=== PATIENT | male | born 1945 | race Caucasian/White ===

== ENCOUNTER 2019-10-09 15:33 | Inpatient (IN) | payer BC, SELFPAY ==
[2019-10-09] VITALS (16 sets, daily range): BP systolic 102–157; BP diastolic 55–80; PULSE 66–82; RESP 13–33; TEMP 36.4–37.1; O2SAT 94–98
--- NOTE | 2019-10-09 15:55 | ED.GENADUL_ITS ---
Discharge Plan Disposition Patient Disposition: [facility] INPATIENT Condition: Fair Discharge Details Chief Complaint: Orthopedic Clinical Impression: Hip fracture Admit Date/Time: 10/09/19 18:51 Admit Provider: Theo Rice Attending Provider: Martinez Tavares Primary Care Provider: Simone Flanagan ED Provider: Caridad Hinojosa Discharge Instructions Activity:: Activity as Tolerated Equipment/Supplies:: Walker Diet:: As Tolerated Discharge Orders Discharge Orders: Discharge Order (Routine); Ordered 10/12/19 Ordered By: Martinez Tavares Discharge Data Discharge Date/Time-TO BE ENTERED AT DEPARTURE: 10/09/19 19:30 Medical Decision Making Patient is a pleasant 74-year-old male with past medical history significant for hypertension, hiatal hernia, CHF, gait disturbance, GERD, hyperlipidemia, hypothyroidism, iron deficiency anemia, proctitis, rheumatoid arthritis. Per records from primary care, patient had an echo 2011 showing EF of 60% with mild diastolic dysfunction. He is presenting today after a fall onto his left hip. Since that time he has had severe pain and has not been able to ambulate without assistance. Patient is brought in via EMS noted to be in external rotation with shortening of the left lower extremity. He denies other injury time of the in cident. Did not strike his head, no loss of consciousness. Denies any pain in his neck, back, chest, abdomen. Sensation is intact. Distal pulses intact. Remaining exam left lower extremity is normal. No saddle paresthesias. Patient does appear to be having muscle spasms. On exam, patient appears uncomfortable. His LLE is shortened and rotated with discomfort laterally on palpation. 2+ distal pulses. No evidence of FINDINGS: Bones/joints: There is a fracture of the left femoral neck at the junction of the base and intratrochanteric ridge with a fracture line through the greater trochanter. There is mild to moderate varus rotation of the femoral head and superior migration of the proximal femur. Degenerative changes lower lumbar spine. Soft tissues: Unremarkable. IMPRESSION: There is a fracture of the left femoral neck at the junction of the base and intratrochanteric ridge with a fracture line through the greater trochanter. FINDINGS: Lungs: Moderate bilateral pulmonary interstitial lung disease. Moderate increased markings at the left lung base. Pleural space: Unremarkable. No pleural effusion. No pneumothorax. Heart/Mediastinum: Borderline cardiomegaly. Vasculature: Atherosclerotic changes of the aortic arch. Bones/joints: Lower cervical fixation incompletely visualized. IMPRESSION: Moderate pulmonary interstitial lung disease which has progressed in severity since a prior chest radiograph dated 11/13/2015. Superimposed left lower lobe infiltrate cannot be excluded. Please correlate with the patient's clinical findings and past medical history There is infiltrate noted in the left lower lobe does correlate clinically as I am hearing crackles in this area and the patient does report that he had a cough the past few weeks. He has not been acutely febrile. Plan to begin ceftriaxone and doxycycline. Consulted orthopedics regarding the patient's hip fracture, they advised they will fix him tomorrow and request admission through hospitalist. I have also r equested that SUBWAREHOUSE SUPERVISOR come to evaluate the patient and perform block if possible. Consult hospitalist agrees to admission. HPI General Mode of arrival: EMS . Date/Time Provider Initiated Documentation: 10/09/19 15:34 . Limitations to Documentation: no limitations . Information obtained by: patient and RN notes reviewed . History of Present Illness 74 year old M presents to the emergency department with the chief complaint of left hip pain, described as severe, Quality is described as stabbing (with spasms), and is localized to the left and lower extremity. Patient reports no radiation. Patient started experiencing this minute(s) and it has been constant. Immobilization improves symptom(s), Movement worsens symptoms . Patient notes no other symptoms.. Patient did receive the following treatments prior to arrival, none Related Data Home Medications Medication Instructions Recorded Confirmed ascorbic acid (vitamin C) 500 mg PO DAILY 01/02/13 10/09/19 hydroxychloroquine 200 mg PO BID 01/02/13 10/09/19 lisinopril 40 mg PO DAILY tab-cap 01/02/13 10/09/19 multivitamin [Daily Vitamin] 1 ea PO DAILY 01/02/13 10/09/19 nifedipine 30 mg PO DAILY #30 tab-cap 09/28/16 10/09/19 sildenafil (pulm.hypertension) 40 mg PO PRN #30 tab 11/10/16 10/09/19 diclofenac sodium [Voltaren] 100 gm TOPICAL DAILY script 07/02/17 10/09/19 omeprazole 40 mg PO DAILY #1 tab-cap 07/02/17 10/09/19 levothyroxine 112 mcg tablet 112 mcg PO DAILY #90 tab 03/16/19 10/09/19 baclofen 10 mg tablet 5 mg PO QID PRN #180 tab 04/04/19 10/09/19 methotrexate sodium 2.5 mg tablets 15 mg PO once a week dose pk 04/21/19 10/09/19 in a dose pack tocilizumab 162 mg/0.9 mL 162 mg SUBCUT QWEEK ml 04/21/19 10/09/19 subcutaneous syringe pramipexole 0.5 mg tablet 0.5 mg PO HS #90 tab-cap 10/09/19 10/09/19 acetaminophen [Mapap Extra 1,000 mg PO Q8H PRN #0 tab 10/12/19 Strength] aspirin 81 mg PO DAILY #29 tab 10/12/19 doxycycline hyclate 100 mg PO BID #4 cap 10/12/19 hydrocodone-acetaminophen 1 tab PO Q6H PRN PRN #20 tab 10/12/19 Previous Rx's Medication Instructions Recorded omeprazole 40 mg PO DAILY #1 tab-cap 07/02/17 levothyroxine 112 mcg tablet 112 mcg PO DAILY #90 tab 03/16/19 baclofen 10 mg tablet 5 mg PO QID PRN #180 tab 04/04/19 pramipexole 0.5 mg tablet 0.5 mg PO HS #90 tab-cap 10/09/19 acetaminophen [Mapap Extra 1,000 mg PO Q8H PRN #0 tab 10/12/19 Strength] aspirin 81 mg PO DAILY #29 tab 10/12/19 doxycycline hyclate 100 mg PO BID #4 cap 10/12/19 hydrocodone-acetaminophen 1 tab PO Q6H PRN PRN #20 tab 10/12/19 Allergies Allergy/AdvReac Type Severity Reaction Status Date / Time azathioprine Allergy Unknown unknown Verified 10/09/19 15:43 morphine AdvReac Other (See Unverified 10/09/19 19:17 Comment) General Stated Complaint: Orthopedic JAMI: 3 Review of Systems Constitutional Constitutional: Reports as per HPI, Denies chills, Denies fever(s), Denies headache(s) and Denies weakness ENT Ears, Nose, Mouth, and Throat: Denies headache(s) Cardiovascular Cardiovascular: Reports as per HPI Respiratory Respiratory: Reports as per HPI and Denies cough Musculoskeletal Musculoskeletal: Reports as per HPI and Denies tingling Integumentary/Breasts Skin/Breast: Reports as per HPI, Denies rash and Denies wounds Neurologic Neurologic: Reports as per HPI, Denies headache(s), Denies tingling, Denies paresthesias and Denies weakness [facility] Medical History Congestive heart failure (CHF) (Chronic) [facility]%, mild diastolic dysfunction, ? 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 [employer] Current gender identity: male What type of physical activity do you participate in: walking and additional Details: pt is very active, walks paths on property daily, 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 Seatbelt use: always Drive intox or ride w/intox 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 Do you feel safe at home: Yes Do you feel safe in your relationship?: Yes Exam Const General: cooperative, healthy appearing, uncomfortable, no acute distress, well developed and well groomed Nutritional Appearance: average body habitus and well nourished Orientation: alert and awake Resp Effort & Inspection: normal respiratory effort, able to speak in complete sentences and no respiratory distress Auscultation: clear to auscultation bilaterally Cardio Rate: regular rate Rhythm: regular rhythm Heart Sounds: S1 normal and S2 normal GI Inspection: normal to inspection Palpation: soft, no hepatosplenomegaly, not firm, no guarding and nontender Back/Spine/Pelvis Back: no CVA tenderness Cervical Spine: normal cervical lordosis and cervical ROM normal Thoracic/Lumbar Spine: thoracic and lumbar spine normal to inspection Pelvis: no pain with anterior-posterior compression and no pain with lateral compression Skin General skin exam: no rashes or lesions noted Lesions: no lesions Rashes: no rashes Trauma: no lacerations or abrasions Neuro General: alert and awake Cognition: normal cognition Speech: speech normal Motor: muscle tone normal throughout Sensory Exam: no sensory deficits noted (no saddle paresthesias) Extrem Left lower extremity: normal capillary refill, no joint enlargement, hip/thigh Details: tenderness Location: of the hip Location: laterally; no swelling and ROM abnormal, knee (unable to range secondry to hip pain, no swelling or pain) Details: normal to inspection, lower leg Details: normal to inspection and no edema; no localized swelling and no palpable cords and foot (2+ distal pulses, sensation intact); abnormal to inspection (shortened and externally rotated) and abnormal ROM Psych Appearance: grossly normal and well kempt Mental Status: mental status grossly normal Speech and Movement: speech and movement normal Course Vital Signs Vital signs: Vital Signs Temperature 37 C 10/09/19 15:40 Pulse 80 10/09/19 15:40 Respiratory Rate 22 10/09/19 15:40 Blood Pressure 142/79 H 10/09/19 15:40 Pulse Oximetry 94 L 10/09/19 15:40 Temperature 37 C 10/09/19 15:40 Temperature Source Skin 10/09/19 15:40 Pulse 80 10/09/19 15:40 Respiratory Rate 22 10/09/19 15:40 Blood Pressure 142/79 H 10/09/19 15:40 Blood Pressure Position Sitting 10/09/19 15:40 Pulse Oximetry 94 L 10/09/19 15:40 Oxygen Delivery Method Room Air 10/09/19 15:40 Oxygen Flow Rate 0 10/09/19 15:40 Pain Level 9 10/09/19 15:40
[2019-10-09] MEDS: diazePAM 10 MG/2 ML SYR 5 MG IVP (16:15)
[2019-10-09] MEDS: ACETAMINOPHEN 1,000 MG/100 ML BTL 400 MG IVPB (16:36)
[2019-10-09 16:37] LABS: Abs Immature Grans 0.01 k/cumm (0.0-0.09); Absolute Basophil Count 0.01 k/cumm (0.0-0.2); Absolute Lymphocyte Count 0.69 k/cumm (1.2-3.4); Absolute Monocyte Count 0.53 k/cumm (0.11-0.7); Absolute Neutrophil Count 3.96 k/cumm (1.2-6.7); Basophils % 0.2; Eosinophils % 5.5; HCT 39.2 % (40.0-50.0); HGB 13.4 g/dL (13.5-17.5); Immature Grans % 0.2 %; Lymphocytes % 12.5; Mean Corp. HGB Concentration 34.2 g/dL (32.0-36.0); Mean Corpuscular Hemoglobin 31.7 pg (27.0-33.0); Mean Corpuscular Volume 92.7 fL (80-95); Monocytes % 9.6; Platelet Count 183 x1000/uL (130-400); RBC 4.23 m/cumm (4.50-6.00); RBC Distribution Width 14.5 % (11.8-14.1)
[2019-10-09 16:48] LABS: ALT 29 U/L (16-63); AST 59 U/L (15-37); Albumin 3.5 g/dL (3.4-5.0); Alkaline Phosphatase 87 U/L (46-116); Anion Gap 7.1 mmol/L (3-11); BUN 17 mg/dL (7-18); Bilirubin, Total 0.5 mg/dL (0.2-1.0); CO2 27.9 mmol/L (21.0-32.0); CREATININE 0.96 mg/dL (0.70-1.30); Calcium 8.2 mg/dL (8.5-10.1); Chloride 107 mmol/L (98-107); Glucose 96 mg/dL (74-106); Potassium 3.9 mmol/L (3.5-5.1); Sodium 142 mmol/L (136-145); Total Protein 7.2 g/dL (6.4-8.2)
--- NOTE | 2019-10-09 16:54 | DI.RAD_ITS ---
EXAM: XR HIP LT COMPLETE AP PELVIS INDICATION: fall, deformity noted. COMPARISON: No exams were available for comparison TECHNIQUE: 2D digital imaging was performed. FINDINGS: There is an intertrochanteric fracture the left femur. There is varus angulation and mild comminutio n at the greater trochanter. No additional fractures are seen. The exam is somewhat limited by overl jerome material. IMPRESSION: Intertrochanteric fracture of left femur with varus angulation.
--- NOTE | 2019-10-09 16:56 | DI.RAD_ITS ---
EXAM: XR CHEST 1V IN DI DEPT INDICATION: possible hip fx, cough. COMPARISON: CHEST 2 VIEWS PA,LAT from 11/13/2015 TECHNIQUE: 2D digital imaging was performed. FINDINGS: The heart size is within normal limits for projection. Again noted are underlying emphysematous and fibrotic changes. Increased densities at the left lung base when compared with the previous exam whi ch could indicate a superimposed infiltrate. IMPRESSION: Severe underlying fibrotic changes. Question of superimposed left lower lobe infiltrate.
[2019-10-09] MEDS: fentaNYL 100 MCG/2 ML VIAL 50 MCG IVP (17:00)
--- NOTE | 2019-10-09 17:17 | DI.VRAD_ITS ---
PROCEDURE INFORMATION: Exam: XR Left Hip with Pelvis when Performed Exam date and time: 10/09/2019 4:14 PM Age: 74 years old Clinical indication: Pain and injury or trauma; Initial encounter; Hip pain; Left hip; Patient HX: Fall, deformity noted TECHNIQUE: Imaging protocol: XR Left hip with pelvis when performed. Views: 2 or 3 views. COMPARISON: No relevant prior studies available. FINDINGS: Bones/joints: There is a fracture of the left femoral neck at the junction of the base and intratrochanteric ridge with a fracture line through the greater trochanter. There is mild to moderate varus rotation of the femoral head and superior migration of the proximal femur. Degenerative changes lower lumbar spine. Soft tissues: Unremarkable. IMPRESSION: There is a fracture of the left femoral neck at the junction of the base and intratrochanteric ridge with a fracture line through the greater trochanter. Dictated and Authenticated by: Valdo Chi MD. Ordering:SENDY Mclean MD
--- NOTE | 2019-10-09 17:24 | DI.VRAD_ITS ---
PROCEDURE INFORMATION: Exam: XR Chest, 1 View Exam date and time: 10/09/2019 5:07 PM Age: 74 years old Clinical indication: Cough; Additional info: Possible hip FX TECHNIQUE: Imaging protocol: XR of the chest Views: 1 view. COMPARISON: CR CHEST 2 VIEWS PA,LAT 11/13/2015 8:45 AM FINDINGS: Lungs: Moderate bilateral pulmonary interstitial lung disease. Moderate increased markings at the left lung base. Pleural space: Unremarkable. No pleural effusion. No pneumothorax. Heart/Mediastinum: Borderline cardiomegaly. Vasculature: Atherosclerotic changes of the aortic arch. Bones/joints: Lower cervical fixation incompletely visualized. IMPRESSION: Moderate pulmonary interstitial lung disease which has progressed in severity since a prior chest radiograph dated 11/13/2015. Superimposed left lower lobe infiltrate cannot be excluded. Please correlate with the patient's clinical findings and past medical history. Dictated and Authenticated by: Valdo Chi MD. Ordering:SENDY Mclean MD
[2019-10-09] MEDS: Bupivacaine 0.25% Pres-Free 30 ML VIAL (18:06)
--- NOTE | 2019-10-09 18:40 | HPE_ITS ---
Date of service: 10/09/19 Time of Service: 18:40 Assessment and Plan Assessment and plan (1) Hip fracture: Status: Acute Assessment and plan: 1.Hip fracture: * Anagesics and await surgical repair in AM. 2. Respiratory: I am not convinced there is a pneumonia, sounds perhaps more a chronic issue, but certainly LRI possible. Has received antibiotics sufficient until AM, will reassess at that time whether to continue. 3. Will see if we can get updated med list. History of Present Illness History of Present Illness Chief Complaint: hip pain Narrative: 74 male slipped today striking left side. Immediate left hip pain. In ER hip fracture noted, ortho pedo=ics notified and plans repair in AM. patient received Valium and fentanyl with good effect and is receiving block at this time. Patient has chronic cough (unknown etiology) but states worse over past several weeks. In ER some rales noted left base and CXR shows worsening diffuse interstitial pattern since prior in 2016, and cannot r/o superimposed LLL infiltrate. Given doses of Rocephin and Doxycycline. Note that he has neither fever nor leukocytosis. Admitted for further management. Review of Systems All systems reviewed & are unremarkable except as noted in HPI and below [facility] Medical History Congestive heart failure (CHF) (Chronic) per records received from [facility]; 2011 [facility] EF [facility]%, mild diastolic dysfunction, ? 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 [employer] Current gender identity: male What type of physical activity do you participate in: walking and additional Details: pt is very active, walks paths on property daily, 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 Seatbelt use: always Drive intox or ride w/intox 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 Do you feel safe at home: Yes Do you feel safe in your relationship?: Yes Meds Home Medications and Allergies Home Medications Medication Instructions Recorded Confirmed Type ascorbic acid (vitamin C) 500 mg PO DAILY 01/02/13 05/29/19 History hydroxychloroquine 200 mg PO BID 01/02/13 05/29/19 History lisinopril 40 mg PO DAILY tab-cap 01/02/13 05/29/19 History multivitamin [Daily Vitamin] 1 ea PO DAILY 01/02/13 05/29/19 History nifedipine 30 mg PO DAILY #30 tab-cap 09/28/16 05/29/19 History sildenafil (pulm.hypertension) 40 mg PO PRN #30 tab 11/10/16 05/29/19 History folic acid 1 mg PO DAILY tab-cap 12/02/16 05/29/19 History diclofenac sodium [Voltaren] 100 gm TOPICAL script 07/02/17 05/29/19 History omeprazole 40 mg PO DAILY #1 tab-cap 07/02/17 05/29/19 Rx levothyroxine 112 mcg tablet 112 mcg PO DAILY #90 tab 03/16/19 05/29/19 Rx baclofen 10 mg tablet 5 mg PO QID PRN #180 tab 04/04/19 05/29/19 Rx methotrexate sodium 2.5 mg tablets 15 mg PO once a week dose pk 04/21/19 05/29/19 History in a dose pack tocilizumab 162 mg/0.9 mL 162 mg SUBCUT QWEEK ml 04/21/19 05/29/19 History subcutaneous syringe azithromycin 250 mg tablet See Rx Instructions PO .COMPLEX #6 05/29/19 05/29/19 Rx tab benzonatate 100 mg capsule 100 mg PO TID PRN #10 cap 05/29/19 05/29/19 Rx prednisone 20 mg tablet 20 mg PO DAILY #5 tab 05/29/19 05/29/19 Rx doxycycline hyclate 100 mg capsule 100 mg PO BID 08/07/19 History pramipexole 0.5 mg tablet 0.5 mg PO HS #90 tab-cap 10/09/19 Rx Allergies Allergy/AdvReac Type Severity Reaction Status Date / Time azathioprine Allergy Unknown unknown Verified 10/09/19 15:43 Exam Narrative Exam Narrative: 142/79. 80, 22, 37, 94% RA. HEENT atraumatic; neck supple; lungs coarse BS; heart RRR w/o MRG; abdomen soft and NT; extremities w/o edema, LLE foreshortened and everted, pedal pulses intact Results Labs Result diagrams: 10/09/19 16:28 10/09/19 16:28 Labs: Laboratory Results - last 24 hr 10/09/19 10/09/19 16:28 16:28 WBC 5.50 RBC 4.23 L Hgb 13.4 L Hct 39.2 L MCV 92.7 MCH 31.7 MCHC 34.2 RDW 14.5 H Plt Count 183 MPV 10.0 Immature Gran % 0.2 Neutrophils % 72.0 Lymphocytes % 12.5 Monocytes % 9.6 Eosinophils % 5.5 Basophils % 0.2 Absolute Neutrophils 3.96 Absolute Lymphocytes 0.69 L Absolute Monocytes 0.53 Absolute Eosinophils 0.30 Absolute Basophils 0.01 Sodium 142 Potassium 3.9 Chloride 107 Carbon Dioxide 27.9 Anion Gap 7.1 BUN 17 Creatinine 0.96 Estimated GFR/1.73 m2 >= 60.00 Glucose 96 Calcium 8.2 L Total Bilirubin 0.5 AST 59 H ALT 29 Alkaline Phosphatase 87 Total Protein 7.2 Albumin 3.5 Last Vital Signs Temp 37 C 10/09/19 15:40 Pulse 80 10/09/19 15:40 Resp 22 10/09/19 15:40 BP 142/79 H 10/09/19 15:40 Pulse Ox 94 L 10/09/19 15:40
[2019-10-09] MEDS: Doxycycline Hyclate 100 MG CAP PO (18:56)
[2019-10-09] MEDS: cefTRIAXone 1 GM/50 ML BAG IVPB (18:56)
[2019-10-09] MEDS: Normal Saline 1,000 ML 80 ML IV (20:54)
[2019-10-09] MEDS: Hydroxychloroquine 200 MG TAB PO (20:54)
[2019-10-09] MEDS: Baclofen 10 MG TAB 5 MG PO (20:54)
[2019-10-09] MEDS: fentaNYL 100 MCG/2 ML VIAL IVP ×2 (21:00→23:06)
[2019-10-09] MEDS: Pramipexole 0.5 MG TAB PO (22:17)
[2019-10-09] MEDS: Acetaminophen 500 MG TAB 1000 MG PO (22:27)
[2019-10-09] MEDS: LORazepam 2 MG/ML VIAL 1 MG IVP (22:28)
[2019-10-10] VITALS (18 sets, daily range): BP systolic 94–144; BP diastolic 52–85; PULSE 65–96; RESP 13–28; TEMP 35.6–37.4; O2SAT 92–99
[2019-10-10] MEDS: Furosemide 20 MG/2 ML VIAL IVP (00:20)
[2019-10-10] MEDS: Albuterol/Ipratropium 3 ML UPD VIAL UPD (00:21)
[2019-10-10] MEDS: Normal Saline Flush 10 ML SYR IVP ×2 (00:21→21:00)
[2019-10-10] MEDS: Levothyroxine 112 MCG TAB PO (05:56)
[2019-10-10] MEDS: Omeprazole 20 MG CAPCR 40 MG PO (08:23)
[2019-10-10] MEDS: NIFEdipine-CR 30 MG TABCR PO (08:24)
--- NOTE | 2019-10-10 09:21 | W.PM.PROGNOT ---
Date of Service Date of service: 10/10/19 Time of Service: 09:21 Assessment and Plan Assessment and plan (1) Hip fracture: Status: Acute Assessment and plan: Patient has been seen by orthopedics and is scheduled for surgery at 1 PM pending medical clearance. Certainly like him to get his hip repaired soon as possible, and I would like not to postpone the surgery, but I am concerned about question of congestive heart failure. I hope the echocardiogram can be done stat so that anesthesia will have this information going into surgery this afternoon. I do not anticipate that patient would benefit from postponing surgery based on these results. (2) Congestive heart failure (CHF): Status: Chronic Assessment and plan: [facility], patient had normal EF at 60% with some diastolic dysfunction in 2012. Given need for Lasix overnight, I think reassessing his left ventricular function would be prudent. I have ordered a BNaP and stat echocardiogram. Right now his fluid status looks good. His EKG is not consistent with acute ischemia, he does not have any chest pain. (3) Pneumonia: Status: Acute Assessment and plan: Chest x-ray showing chronic fibrosis, questioning worsening fibrosis or new infiltrate. Given the patient has had increased cough and sputum over the past 2 weeks, I will continue treatment for pneumonia even though the symptoms are mild clinically and he is not hypoxic. He certainly elevated risk given his immunosuppression and chronic lung disease. I will continue ceftriaxone and doxycycline. 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 I did confirm this predates his methotrexate, and is felt secondary to his rheumatoid arthritis. He has seen Dr. Perry from pulmonology. (5) Iron deficiency anemia: Status: Acute Assessment and plan: Patient has a chronic mild anemia, and his current levels are similar to his baseline or slightly higher. He has had assessments for iron deficiency anemia including endoscopy. Methotrexate may be contributing. (6) Rheumatoid arthritis without organ or system involvement with positive rheumatoid factor: Status: Acute Assessment and plan: Patient is on 3 agents for his rheumatoid arthritis chronically. Does not appear he has active synovitis currently. I will continue his chronic therapy. (7) Essential hypertension: Status: Acute Assessment and plan: Continue outpatient lisinopril and nifedipine. (8) Hypothyroidism: Status: Acute Assessment and plan: Spelt stable on levothyroxine, no change. (9) DVT prophylaxis: Status: Acute Assessment and plan: Per orthopedic recommendations postop. Subjective Subjective Patient reports: no new complaints and still having pain; denies diarrhea, nausea, vomiting and fever Interval history since last seen: 24 hr events: MD called overnight for SOB, stopped fluids and given furosemide 20mg x 1 with improvement He feels well, severe pain with movement of left leg. He confirms he has had increased cough and sputum over the past 2 weeks. Denies fever. Doesn't feel SOB now. He denies a history of cardiac disease. He states he has had pulmonary fibrosis since early , started on MTX later for his RA and this didn't make his fibrosis worse. . Exam Narrative Exam Narrative: General: Alert and oriented x3, lying flat comfortably in bed, speaking in full sentences, only distressed when changes position. HEENT: Moist mucous membranes, oropharynx benign. Neck supple with no elevation of JVP or masses. Lungs: Normal respiratory effort. Crackles most notable at the right base, good air movement. Cardiovascular: Regular rate and rhythm, no murmurs gallops or rubs. Abdomen: Active bowel sounds, soft, nontender nondistended. Extremities: No cyanosis clubbing or edema. Nontender to palpation. Left leg shortened and externally rotated. Objective Objective Clinical Data: Abnormal lab results 10/09/19 10/09/19 Range/Units 16:28 16:28 RBC 4.23 L (4.50-6.00) m/cumm Hgb 13.4 L (13.5-17.5) g/dL Hct 39.2 L (40.0-50.0) % RDW 14.5 H (11.8-14.1) % Absolute Lymphocytes 0.69 L (1.2-3.4) k/cumm Calcium 8.2 L (8.5-10.1) mg/dL AST 59 H (15-37) U/L Vital Signs Temperature 36.4 C L 10/10/19 07:30 Temperature Source Tympanic 10/10/19 07:30 Pulse 74 10/10/19 07:30 Pulse Rhythm Regular 10/10/19 05:02 Pulse 81 10/09/19 19:20 Respiratory Rate 18 10/10/19 07:30 Respiratory Effort 10/10/19 05:02 Respiratory Depth Normal 10/10/19 05:02 Respiratory Pattern Normal 10/10/19 05:02 Blood Pressure 144/85 H 10/10/19 07:30 Blood Pressure Mean 83 10/09/19 18:16 Blood Pressure Position Sitting 10/09/19 15:40 Pulse Oximetry 96 10/10/19 07:30 Oxygen Delivery Method Room Air 10/10/19 07:30 Oxygen Flow Rate 0 10/10/19 07:30 Pain Level 5 10/10/19 07:30 Intake & Output 10/09/19 10/09/19 10/10/19 11:59 23:59 11:59 Intake Total 150 / 150 848 / 848 Output Total 700 / 700 750 / 750 Balance -550 / -550 98 / 98 Weight 73.7 kg Intake: IV 150 / 150 848 / 848 Output: Urine 700 / 700 750 / 750 Other: Urine Color Yellow Yellow Urine Appearance Clear Clear Voiding Methods Urinal Laboratory Results WBC 5.50 k/cumm (4.4-10.8) 10/09/19 16:28 RBC 4.23 m/cumm (4.50-6.00) L 10/09/19 16:28 Hgb 13.4 g/dL (13.5-17.5) L 10/09/19 16:28 Hct 39.2 % (40.0-50.0) L 10/09/19 16:28 MCV 92.7 fL (80-95) 10/09/19 16:28 MCH 31.7 pg (27.0-33.0) 10/09/19 16:28 MCHC 34.2 g/dL (32.0-36.0) 10/09/19 16:28 RDW 14.5 % (11.8-14.1) H 10/09/19 16:28 Plt Count 183 x1000/uL (130-400) 10/09/19 16:28 MPV 10.0 fL (8.0-11.0) 10/09/19 16:28 Immature Gran % 0.2 % 10/09/19 16:28 Neutrophils % 72.0 10/09/19 16:28 Lymphocytes % 12.5 10/09/19 16:28 Monocytes % 9.6 10/09/19 16:28 Eosinophils % 5.5 10/09/19 16:28 Basophils % 0.2 10/09/19 16:28 Absolute Neutrophils 3.96 k/cumm (1.2-6.7) 10/09/19 16:28 Absolute Lymphocytes 0.69 k/cumm (1.2-3.4) L 10/09/19 16:28 Absolute Monocytes 0.53 k/cumm (0.11-0.7) 10/09/19 16:28 Absolute Eosinophils 0.30 k/cumm (0.0-0.7) 10/09/19 16:28 Absolute Basophils 0.01 k/cumm (0.0-0.2) 10/09/19 16:28 Sodium 142 mmol/L (136-145) 10/09/19 16:28 Potassium 3.9 mmol/L (3.5-5.1) 10/09/19 16:28 Chloride 107 mmol/L (98-107) 10/09/19 16:28 Carbon Dioxide 27.9 mmol/L (21.0-32.0) 10/09/19 16:28 Anion Gap 7.1 mmol/L (3-11) 10/09/19 16:28 BUN 17 mg/dL (7-18) 10/09/19 16:28 Creatinine 0.96 mg/dL (0.70-1.30) 10/09/19 16:28 Estimated GFR/1.73 m2 >= 60.00 (mL/min/1.73m2) 10/09/19 16:28 Glucose 96 mg/dL (74-106) 10/09/19 16:28 Calcium 8.2 mg/dL (8.5-10.1) L 10/09/19 16:28 Total Bilirubin 0.5 mg/dL (0.2-1.0) 10/09/19 16:28 AST 59 U/L (15-37) H 10/09/19 16:28 ALT 29 U/L (16-63) 10/09/19 16:28 Alkaline Phosphatase 87 U/L (46-116) 10/09/19 16:28 Total Protein 7.2 g/dL (6.4-8.2) 10/09/19 16:28 Albumin 3.5 g/dL (3.4-5.0) 10/09/19 16:28
[2019-10-10 10:12] LABS: NT-proBNP 205 pg/mL (<300)
[2019-10-10] MEDS: DOXYCYCLINE 100 MG in Normal Saline 100 ML IVPB ×2 (10:32→20:59)
[2019-10-10] MEDS: Hydroxychloroquine 200 MG TAB PO ×2 (10:45→21:00)
--- NOTE | 2019-10-10 13:07 | W.NUTCONSULT ---
Date of service: 10/10/19 Time of Service: 13:07 Nutritional Consult ASSESSMENT: 74 year old male admitted with left hip fracture. NPO for surgery today. BMI wnl for age. Not considered at nutritional risk at this time. will be available prn. Time Spent in Nutritional Counseling and Treatment: 0 time spent face to face
[2019-10-10] MEDS: Lactated Ringers 1,000 ML 30 ML IV ×2 (13:39→17:25)
[2019-10-10] MEDS: Normal Saline 50 ML 150 ML (14:50)
[2019-10-10] MEDS: Tranexamic Acid 1,000 MG/10 ML VIAL 1000 MG (14:50)
--- NOTE | 2019-10-10 15:03 | DI.RAD_ITS ---
EXAM: XR HIP LT IN OR CLINICAL HISTORY: LEFT HIP FRACTURE. TECHNIQUE: 2D and realtime digital imaging was performed. Fluoroscopy was provided in the OR for Dr Jocy Lizarraga. COMPARISON: XR HIP LT COMPLETE AP PELVIS from 10/09/2019 FINDINGS: Images show correction of the previously noted angulation of the intertrochanteric fracture. Please see procedure note for details. Fluoro Time: 68.3 seconds
--- NOTE | 2019-10-10 15:28 | PHARADMIT ---
Admission Pharmacy Clinical Review HIP FRACTURE Code Status Full Code Current Weight 73.7 kg Renally Cleared and Narrow Therapeutic Index Meds CRCL 61ML/MIN QTc Value / Action Taken 437 BP Control, Fever 144/85 AFEBRILE Electrolytes reviewed OK DVT Prophylaxis NO, SURGERY TODAY Opiate Usage / Scheduled Bowel Regimen Ordered PRN/NO Plt/SCr for Heparin / Enoxaparin 183/0.96 INR for Warfarin NA H/H stable, WBC/Bands 13.4/39.2 WBC 5.50 Antibiotic appropriateness CEFTRIAXONE, DOXYCYCLINE FOR CAP Cultures and Sensitivities NA Surgical ABX d/c within 24 hr NA DM control / Insulin Dosing NA Heart Failure (Check EF%) (VINCENT's, B-Block, Diuretics) LISINOPRIL, NIFEDEPINE IV to PO Switch Home Meds Reviewed Home Meds Not Ordered ascorbic acid (vitamin C) 500 mg PO DAILY multivitamin [Daily Vitamin] 1 ea PO DAILY sildenafil (pulm.hypertension) 40 mg PO PRN #30 tab diclofenac sodium [Voltaren] 100 gm TOPICAL DAILY Comments
--- NOTE | 2019-10-10 15:35 | INITIAL_ITS ---
- If Service Date Differs Date of service: 10/10/19 Time of Service: 15:35 Care Management Initial Assess REASON FOR HOSPITALIZATION:: Hip fracture PAST MEDICAL HISTORY/PAST SURGICAL HISTORY:: Medical History . Congestive heart failure (CHF) (Chronic). per records received from [facility]; [facility]%, mild diastolic dysfunction, ? more recent [facility]. Essential hypertension (Acute). Gastroesophageal reflux disease (Chronic 09/09/11). Hiatal hernia (Chronic 11/23/16). endoscopy with Dr Olivier. Hypertension (Chronic 05/30/79). DX WHEN APPLIED TO WORK; TREATED SINCE THEN. Surgical History . Colonoscopy - [facility] (04/29/15). Dr.Annick Olivier. EGD - [facility] (11/23/16) PREVIOUS FUNCTIONAL STATUS/SOCIAL/FAMILY SUPPORTS:: Hernandez lives alone in a mobile home in [place], [place]. His closest relative is a niece, Rosemary Jones who lives in [place], [place]. Hernandez has no children but was once about 30 years ago. 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 Hernandez uses a can as an ambulatory assistive device. Hernandez is independent at baseline, continues to drive and helps his neighbors with snow plowing etc. Hernandez states that has very good friends and neighbors that are willing to help with whatever he needs. CURRENT FUNCTIONAL STATUS:: Hernandez was lying in bed dozing when CM met with him. He was pleasant and engaged readily in conversation. Hernandez shared the events that led to his fall and hip fracture. He also shared information about his career and the many friends and neighbors that he has. He stated that he feels he has a strong support system . Hernandez is scheduled to have surgery today as long as he is medically cleared. ADVANCE DIRECTIVES:: None on file but Hernandez states he has ADs. Has patient been provided with information about the portal?: No Did the patient sign up for the portal?: No CODE STATUS:: Full Code INSURANCE COVERAGE / FINANCIAL ISSUES:: BC BS FEP. Hernandez receives some of [facility] care through the [facility]. His brake shoe rebuilder is with the [facility] CURRENT HOME/COMMUNITY SERVICES/EQUIPMENT:: Hernandez uses a cane to ambulate. He does not receive any community services at this time. PRIMARY CARE PHYSICIAN:: Simone Flanagan POTENTIAL DISCHARGE NEEDS:: Follow up with surgeon, PCP and discharge plan of care PATIENT/FAMILY EDUCATION NEEDS:: Discharge plan, limitations, follow up plan and Ask Me Three TRANSPORTATION:: to be determined by final discharge plan PLAN:: Hernandez will likely be discharged home with new home health services, although it is possible that he may need a short rehab stay. He will follow up with his discharge plan of care and surgeon. CM will continue to support Hernandez and his dischasrge planning needs.
--- NOTE | 2019-10-10 16:09 | DI.RAD_ITS ---
EXAM: XR HIP LT COMPLETE AP PELVIS INDICATION: CHECK ORIF IN RR. COMPARISON: XR HIP LT COMPLETE AP PELVIS from 10/09/2019 TECHNIQUE: 2D digital imaging was performed. FINDINGS: The patient is status post placement of hardware in the proximal femur for fixation of the previously noted intertrochanteric fracture. The alignment appears anatomic.
--- NOTE | 2019-10-10 16:23 | NUR.NOTE ---
Nursing Note: Pt arrived to PACU from med/surg pre-op around 1220(unsure of exact time). Pt was waiting in PACU to be seen by anesthesia. After waiting 2-3 minutes in PACU, pt complained to this nurse that his heel was painful. RN assessed heel and noted round, red apparently non-blanchable area on right heel. RN immediately elevated RLE on pillow so that heel was elevated off the bed and not resting on anything. (LLE already elevated w/heel off bed). RN discussed the chance of pressure ulcer development with pt. RN discussed with OR nurse manager performance improvement that pt may have pressure ulcer beginning, so as to ensure continuity of care and pressure ulcer prevention.
--- NOTE | 2019-10-10 17:07 | ROE_ITS ---
DATE OF PROCEDURE: October 10, 2019 PREOPERATIVE DIAGNOSIS: Intertrochanteric fracture of the left femur. POSTOPERATIVE DIAGNOSIS: Same. PROCEDURE: Open reduction and internal fixation of intertrochanteric fracture of the left femur jose j morrow a short trochanteric femoral nail. ANESTHESIA: Spinal, Yaritza Guevara and Damaris Machado CRNA'amna SURGEON: Everton Lizarraga M.D. HOMICIDE SQUAD CAPTAIN: Jesus Medley INDICATIONS: This is a 74-year-old male who, yesterday while walking outside, tripped, fell onto his left side sustaining an intertrochanteric fracture of the left hip. Upon closer examination of the x-rays, the fracture really was a basicervical fracture with extension into the greater trochanter. The fracture was in varus and apex posterior angulation. Because of the fracture extending to the la teral trochanter I did not think that a compression screw would be a satisfactory device to fix this fracture. I felt that a short trochanteric femoral nail would be ideal for this fracture pattern. I discussed this with Jake in detail and he agreed with my recommendations. He wished to proceed as soon as possible to alleviate his pain. PROCEDURE: The patient was taken to the operating room on 10/10/2019 where he was given a spinal anes thetic. He was then placed supine on the fracture table in single-leg traction on the left. The fra cture was manipulated with longitudinal traction followed by internal rotation. I was able to obtain a near-anatomic reduction of the fracture, confirmed with the C-arm. At this point the left proxima l thigh and hip were prepped and draped in the usual sterile fashion. Utilizing C-arm imaging and a guide pin, I was able to localize the tip of the trochanter and made an incision at the tip of the greater trochanter extending proximally from the tip of the trochanter ab out 3 to 3 1/2 inches in length. The incision was carried through the skin and subcu and then the ab ductor fascia. With blunt dissection I was able to use the large aiming guide and sleeve and a guide pin just medial to the tip of the trochanter. With the help of C-arm image intensification I was ab le to position the pin exactly where I wanted it, and then I drove the pin down the center of the fem oral canal distal to the lesser trochanter. A one-step reamer was then placed over the guide pin and reamed until fully seated. I then kept the guide pin down the center of the shaft and selected a 17 0 mm long, 11or 12 mm short TFN. The aiming guide was then secured to the nail and the nail was inse rted by hand until I could advance it no longer. I then used the hammer and strike plate to fully se at the nail. Once I was happy with the position of the nail, I placed the aiming sleeve through the target guide. I made an incision in the skin and through the skin and subcu and iliotibial band and then advanced the aiming sleeve until it contacted the lateral femoral cortex. A guide pin was place d through the lateral femoral cortex and through the nail and advanced into the femoral neck. I felt that the pin was too high and so it was backed out; the nail was advanced a little further distally and then the guide pin was replaced. The guide pin was now in the center position of the femoral hea d on the AP view. On the lateral view the pin was a little anterior and I simply redirected it so th at I was able to get the guide pin in the center-center position on both AP and lateral views. In ad dition, I advanced the pin to within 10 mm of the subchondral bone surface of the femoral head. The pin was measured and a 95 mm length helical blade was selected. The helical blade was placed over th e guide pin after I drilled the lateral cortex. The spiral blade was then seated by hammering on the end of the repairer switchgear until it was fully seated and properly rotated. The repairer switchgear was removed. The guide pin and the aiming sleeve were removed. The C-arm was used to again check that the spiral blad e was in the center-center position and was within 10 mm of the subchondral bone surface of the femor al head. I next placed the aiming sleeve for the interlocking screw through the targeting device. A gain a stab wound was placed in the skin through the IT band and the aiming sleeve was advanced until it contacted the lateral cortex. I then drilled through the aiming sleeve with a 3.2 drill across t he femur through the nail. Once I had penetrated the medial cortex I measured the screw length from the drill. A 38 mm locking bolt was selected. It was then inserted and firmly tightened with excell ent bicortical fixation through the short nail. I locked the nail proximally and then backed off a h gunner of a turn so that it could compress. I removed the targeting device. The wounds were irrigated with tranexamic acid, 2 grams in 150 cc's of saline. The wound margins wer e infiltrated with 0.5% Marcaine with an epinephrine solution. The most proximal incision for insert ion of the nail was closed first using interrupted #1 Vicryl suture material for the deep fascia. Th e skin and subcu from all three of the incisions were then closed with subcuticular sutures of #4-0 M onocryl, supplemented by tissue glue. Mepilex dressings were then placed over the incisions. The joaquina garcía tolerated the procedure well. Estimated blood loss was 100 cc's. He was discharged to the rec overy room in good condition.
[2019-10-10] MEDS: Ketorolac 30 MG/ML VIAL IVP ×2 (17:25→21:00)
[2019-10-10] MEDS: cefTRIAXone 1 GM/50 ML BAG IVPB (17:25)
[2019-10-10] MEDS: Pramipexole 0.5 MG TAB PO (21:00)
[2019-10-11] MEDS: Ketorolac 30 MG/ML VIAL IVP ×4 (04:59→21:46)
[2019-10-11] MEDS: Levothyroxine 112 MCG TAB PO (05:00)
[2019-10-11] MEDS: Normal Saline Flush 10 ML SYR IVP ×2 (05:00→21:46)
[2019-10-11] MEDS: NIFEdipine-CR 30 MG TABCR PO (08:02)
[2019-10-11] MEDS: Hydroxychloroquine 200 MG TAB PO ×2 (08:02→18:56)
[2019-10-11] MEDS: Lisinopril 20 MG TAB 40 MG PO (08:02)
[2019-10-11] MEDS: HYDROcodone 5/Acetaminophen 325 TAB PO (08:02)
[2019-10-11] MEDS: Omeprazole 20 MG CAPCR 40 MG PO (08:02)
[2019-10-11 08:12] VITALS: BP 116/71; PULSE 79; RESP 16; TEMP 35.7; O2SAT 97
--- NOTE | 2019-10-11 09:59 | IN_ITS ---
Date of service: 10/11/19 Time of Service: 08:38 PT Notes Visit Reasons: HIP FRACTURE Physical Therapy Inpatient Initial Evaluation Date: 10/11/2019 Referring Doctor: Everton Lizarraga M.D. PT Orders: PT CONSULT: s/p ortho surgery Precautions: Fall. Standard. Activity as tolerated. WBAT on L LE. Patient Profile/Admitting Diagnosis: Pt is a 74-year-old male with a history of CHF, iron deficiency, and rheumatoid arthritis, that presented to the ER on 10/09/2019 following a fall. He was admitted to the hospital with a diagnosis of a left hip intertrochanteric fracture and pneumonia, presenting now status post left hip ORIF on post-operative day zero. PMHX: Medical History Congestive heart failure (CHF) (Chronic) per records received from [facility]; 2011 ECHO [facility] shows EF 60%, mild diastolic dysf unction, ? more recent [facility] Essential hypertension (Acute) Gastroesophageal reflux disease (Chronic 09/09/11) Hiatal hernia (Chronic 11/23/16) endoscopy with Dr Olivier Hypertension (Chronic 05/30/79) DX WHEN APPLIED TO WORK; TREATED SINCE THEN Surgical History Colonoscopy - MAC (04/29/15) Dr.Annick Olivier EGD - [facility] (11/23/16) Social History/Home Situation: Pt lives alone in his home in [place], [place]. Two steps to enter the home with railings on both sides. No stairs in the home. Per medical records, the closest relative is his niece in [place], [place]. Equipment Owned/DME: Cane, front-wheeled walker. Grab bars in the bathroom. Subjective: Pt reports that he ambulated with a cane prior to his fall. He was independent in his home and still driving. Notes that he has had 4-5 falls in the past 12 months. He reports that he enjoys being independent. Objective: General Observation: Thromboembolic pumps on bilateral LEs. Langford catheter in place, removed by nursing prior to ambulation. IV line in R UE. Mental Status: alert and oriented x4 Pain: 4/10 with rest, 6-7/10 with ambulation ROM: Right Upper Extremity: Shoulder Flexion WFL. Shoulder abduction WFL. Elbow flexion WFL. Wrist flexion WFL. Opening and closing of hand WFL. Left Upper Extremity: Shoulder Flexion WFL. Shoulder abduction WFL. Elbow flexion WFL. Wrist flexion WFL. Opening and closing of hand WFL. Right Lower Extremity: Hip flexion WFL. Hip abduction WFL. Knee flexion WFL. Ankle dorsiflexion WFL. Ankle plantarflexion WFL. Left Lower Extremity: Hip flexion 100 degrees. Hip abduction WFL. Knee flexion WFL. Ankle dorsiflexion WFL. Ankle plantarflexion WFL. Strength: Right Upper Extremity: Shoulder flexors 5/5. Shoulder abductors 5/5. Elbow flexors 5/5. Elbow extensors 5/5. Mop Man strong. Left Upper Extremity: Shoulder flexors 5/5. Shoulder abductors 5/5. Elbow flexors 5/5. Elbow extensors 5/5. Mop Man strong. Right Lower Extremity: Hip flexors 4/5. Hip abductors 5/5. Knee flexors 5/5. Knee extensors 5/5. Ankle dorsiflexors 5/5. Ankle plantarflexors 5/5. Left Lower Extremity: Hip flexors 2+/5. Hip abductors 3-/5. Knee flexors 4/5. Knee extensors 4+/5. Ankle dorsiflexors 5/5. Ankle plantarflexors 5/5. Sensation: Intact as to pain and pressure on bilateral lower extremities. Bed Mobility/Transfers: Rolling Min A with HOB at 45 degrees Supine to sit Min A Sit to supine Min A Sit to stand CGA Stand to sit CGA Bed to chair CGA Chair to bed CGA Gait: Pt was able to ambulate 60 feet, WBAT on the L LE, using a front-wheeled walker. CGA provided by PT student with wheelchair follow provided by PT. Required multiple rest breaks due to increased respiratory rate and shortness of breath, which the pt reports to be his baseline. Decreased velocity with asymmetrical step length and height observed. Complained of increased anterior hip pain with ambulation, reports 6-7/10. Required cues to push walker forward and not lift. Balance: Static Sitting: Normal Dynamic Sitting: Normal Static Standing: Fair Dynamic Standing: Fair Special Tests: Mobility Limitations Standardized Measure [facility] 6 clicks Basic Mobility Inpatient Short Form: Raw Score: 17 CMS Score: 51% deficit Informed Consent/Education: Patient instructed in purpose of PT consult and plan of care. Assessment: Pt is a 74-year-old male with a history of CHF, iron deficiency, and rheumatoid arthritis, that presented to the ER on 10/09/2019 following a fall. He was admitted to the hospital with a diagnosis of a left hip intertrochanteric fracture and pneumonia, presenting now status post left hip ORIF on post- operative day zero. Pt presents with impairment level findings and functional limitations as listed below. Pt demonstrates impaired respiratory and cardiovascular function with increased respiratory rate and SOB on exertion, which he reports to be his baseline. Pt is agreeable to considering a [facility] facility after discharge to progress his independence to return home safely. He would continue to benefit from skilled physical therapy at this time. Patient presents with clinical signs and symptoms consistent with current/admitting diagnoses that have resulted to mobility limitations, gait instability, and generalized weakness as demonstrated by the following impairm ent level findings: 1. Decreased strength to B LE major muscle groups 2. Impaired sitting/standing balance 3. Impaired activity tolerance 4. Limitation of joint range of motion in left hip 5. Impaired respiratory and cardiovascular function Impairments are contributing to the following functional limitations: 1. Dependent bed mobility skills 2. Increased dependence with transfers 3. Inability to safely ambulate without assistive device and physical assistance 4. Increase completion time for mobility ADL performance 5. Increased fall risk 6. Inability to negotiate steps alone safely Patient is [place] 71323 moderate complexity based on the following: History: Pt presents with impairment level findings and functional limitations as listed below. AM-PAC raw score of 17 with 51% deficit. Examination: Demonstrable impairment in strength, balance, and range of motion with underlying impairments and functional limitations as documented above Presentation: Evolving Decision Makin moderate complexity Goals: Goals X1 week 1. Supine-Sit independent 2. Sit-Supine independent 3. Sit-Stand independent 4. Stand-Sit independent 5. Bed-Chair independent 6. Chair-Bed independent 7. Independent gait on level surface with use of least restrictive device for at least 300 feet without report of pain. 8. Independent stair negotiation while holding onto bilateral rails for at least 5 steps without report of pain. 9. Independent with home exercise program 10. Good static and dynamic standing balance/tolerance Plan of Care/Treatment Plan: 1-2x/day, 7 days/week x 1 week. Plan of care has been reviewed with the HEALTH UNDERWRITER providing the service under Physical Therapy direction. Initiate Physical Therapy intervention for strengthening, bed mobility, transfers, gait, stairs, balance training, use of assistive device. DISCHARGE RECOMMENDATIONS: Pt will benefit from [facility] facility placement for continued skilled physical therapy services in order to progress mobility level, strength, and balance in preparation for a safe discharge to home. No equipment recommendations at this time. TREATMENT CODE/TIME: 77767 x 22 minutes + [id number] XE x 10 minutes beginning at 8:38 A.M. Thank you very much for this referral. Olesya Quevedo, SPT Doctor of Physical Therapy Student [facility] Supervision provided by Digna Castle PT, DPT, CLT [facility] [place], [place]
[2019-10-11] MEDS: DOXYCYCLINE 100 MG in Normal Saline 100 ML IVPB ×2 (10:02→21:46)
--- NOTE | 2019-10-11 10:55 | PDOC.CMPRO ---
- If Service Date Differs Date of service: 10/11/19 Time of Service: 10:55 Care Management Progress Note S/O:Hernandez was lying in bed when CM met with him. He stated that surgery went well and that his pain is about a 4/10. He shared that he walked with PT this morning and was told he did very well. He stated that Dr. Lizarraga also said that he is doing well and should be able to go home in a couple of days. Hernandez shared that he definitely does not wish to go to rehab and at this point does not feel he will need home health services but will evaluate on a daily basis as his recovery progresses. A: Hernandez is a 74 year old gentleman admitted to [facility] on 10/09/19 with a hip fracture P:Hernandez will likely be discharged home, possibly with new home health services. He will follow up with his discharge plan of care and surgeon. CM will continue to support Hernandez and his dischasrge planning needs.
--- NOTE | 2019-10-11 14:09 | W.PM.PROGNOT ---
Date of Service Date of service: 10/11/19 Time of Service: 14:10 Assessment and Plan Assessment and plan (1) Hip fracture: Status: Acute Assessment and plan: Patient is postoperative day 1 status post left ORIF. He tolerated the procedure well. He is working with physical therapy per orthopedics recommendations. Pain adequately controlled. (2) Congestive heart failure (CHF): Status: Chronic Assessment and plan: Repeat echocardiogram yesterday done prior to surgery showed preserved ejection fraction. As above he tolerated the surgery well with no cardiac symptoms and no need for additional diuresis. (3) Pneumonia: Status: Acute Assessment and plan: Chest x-ray showed chronic fibrosis, questioning worsening fibrosis or new infiltrate. He does seem to have responded the antibiotics, so we continue ceftriaxone and doxycycline and plan to finish a 5-day course of therapy. 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 I did confirm this predates his methotrexate, and is felt secondary to his rheumatoid arthritis. He has seen Dr. Perry from pulmonology. (5) Iron deficiency anemia: Status: Acute Assessment and plan: Patient has a chronic mild anemia, and hemoglobin was similar to his baseline or slightly higher on admission. He has had assessments for iron deficiency anemia including endoscopy. Methotrexate may be contributing Will follow with a.m. labs tomorrow. (6) Rheumatoid arthritis without organ or system involvement with positive rheumatoid factor: Status: Acute Assessment and plan: Patient is on 3 agents for his rheumatoid arthritis chronically. Does not appear he has active synovitis currently. I agree with holding his methotrexate which is due today to better allow for healing. Continue to monitor. (7) Essential hypertension: Status: Acute Assessment and plan: Continue outpatient lisinopril and nifedipine, blood pressure stable. (8) Hypothyroidism: Status: Acute Assessment and plan: Spelt stable on levothyroxine, no change. (9) DVT prophylaxis: Status: Acute Assessment and plan: Per orthopedic recommendations teds and SCDs. Subjective Subjective Patient reports: tolerating liquids well and tolerating a regular diet; denies nausea, vomiting, shortness of breath and fever Interval history since last seen: 24hr: ORIF left hip, no complications He feels better today, sitting up comfortably. Pain 4/10. Has been up working with PT. He denies chest pain or SOB, having less cough and sputum. No further furosemide overnight. Exam Narrative Exam Narrative: General: Alert and oriented x3, sitting up in chair, no acute distress HEENT: Moist mucous membranes Lungs: Normal respiratory effort. Crackles most notable at the right base, very slight on left, good air movement. Cardiovascular: Regular rate and rhythm, no murmurs gallops or rubs. Abdomen: Active bowel sounds, soft, nontender nondistended. Extremities: No cyanosis clubbing or edema. Nontender to palpation. Dressing on left leg clean dry and intact Objective Objective Clinical Data: Vital Signs Temperature 35.7 C L 10/11/19 08:12 Temperature Source Tympanic 10/11/19 08:12 Pulse 79 10/11/19 08:12 Pulse Rhythm Regular 10/11/19 02:08 Pulse 81 10/09/19 19:20 Respiratory Rate 16 10/11/19 08:12 Respiratory Effort Non-Labored 10/11/19 02:08 Respiratory Depth Normal 10/11/19 02:08 Respiratory Pattern Normal 10/11/19 02:08 Blood Pressure 116/71 10/11/19 08:12 Blood Pressure Mean 83 10/09/19 18:16 Blood Pressure Position Sitting 10/09/19 15:40 Pulse Oximetry 97 10/11/19 08:12 Respiratory End-tidal CO2 30 10/10/19 16:21 Oxygen Delivery Method Room Air 10/11/19 08:12 Oxygen Flow Rate 0 10/11/19 08:12 Pain Level 4 10/11/19 11:07 Intake & Output 10/10/19 10/11/19 10/11/19 23:59 11:59 23:59 Intake Total 1968.5 / 2916.5 480 / 720 240 / 720 Output Total 600 / 1350 300 / 300 Balance 1368.5 / 1566.5 180 / 420 240 / 420 Intake: IV 868.5 / 1816.5 Oral 1100 / 1100 480 / 720 240 / 720 Output: Urine 450 / 1200 300 / 300 Estimated Blood Loss 150 / 150 Other: Urine Color Yellow Dark Fawn Urine Appearance Clear Clear Comment 300 MLS IN BAG WHEN ENTERING OR Emesis Description None Laboratory Results WBC 5.50 k/cumm (4.4-10.8) 10/09/19 16:28 RBC 4.23 m/cumm (4.50-6.00) L 10/09/19 16: Hgb 13.4 g/dL (13.5-17.5) L 10/09/19 16: Hct 39.2 % (40.0-50.0) L 10/09/19 16: MCV 92.7 fL (80-95) 10/09/19 16: MCH 31.7 pg (27.0-33.0) 10/09/19 16: MCHC 34.2 g/dL (32.0-36.0) 10/09/19 16: RDW 14.5 % (11.8-14.1) H 10/09/19 16: Plt Count 183 x1000/uL (130-400) 10/09/19: MPV 10.0 fL (8.0-11.0) 10/09/19 16: Immature Gran % 0.2 % 10/09/19 16: Neutrophils % 72.0 10/09/19 16: Lymphocytes % 12.5 10/09/19 16: Monocytes % 9.6 10/09/19 16: Eosinophils % 5.5 10/09/19 16: Basophils % 0.2 10/09/19 16: Absolute Neutrophils 3.96 k/cumm (1.2-6.7) 10/09/19 16: Absolute Lymphocytes 0.69 k/cumm (1.2-3.4) L 10/09/19 16: Absolute Monocytes 0.53 k/cumm (0.11-0.7) 10/09/19: Absolute Eosinophils 0.30 k/cumm (0.0-0.7) 10/09/19 16: Absolute Basophils 0.01 k/cumm (0.0-0.2) 10/09/19 16: Sodium 142 mmol/L (136-145) 10/09/19 16: Potassium 3.9 mmol/L (3.5-5.1) 10/09/19 16: Chloride 107 mmol/L (98-107) 10/09/19 16: Carbon Dioxide 27.9 mmol/L (21.0-32.0) 10/09/19 16: Anion Gap 7.1 mmol/L (3-11) 10/09/19 16:28 BUN 17 mg/dL (7-18) 10/09/19 16:28 Creatinine 0.96 mg/dL (0.70-1.30) 10/09/19 16:28 Estimated GFR/1.73 m2 >= 60.00 (mL/min/1.73m2) 10/09/19 16:28 Glucose 96 mg/dL (74-106) 10/09/19 16:28 Calcium 8.2 mg/dL (8.5-10.1) L 10/09/19 16:28 Total Bilirubin 0.5 mg/dL (0.2-1.0) 10/09/19 16:28 AST 59 U/L (15-37) H 10/09/19 16:28 ALT 29 U/L (16-63) 10/09/19 16:28 Alkaline Phosphatase 87 U/L (46-116) 10/09/19 16:28 NT-Pro-B Natriuret Pep 205 pg/mL (<300) 10/09/19 16:28 Total Protein 7.2 g/dL (6.4-8.2) 10/09/19 16:28 Albumin 3.5 g/dL (3.4-5.0) 10/09/19 16:28 Patient ABO/Rh A Negative 10/10/19 13:18 Antibody Screen Negative 10/10/19 13:18
--- NOTE | 2019-10-11 14:51 | W.PM.PROGNOT ---
Date of Service Date of service: 10/11/19 Time of Service: 14:51 Assessment and Plan Assessment and plan (1) Hip fracture: Status: Acute Assessment and plan: Assessment: Stable and doing very well at 24 hours postop TFN for a intratrochanteric fracture of his left femur. Plan: Continue mobilize with physical therapy. Can send him home as soon as he is fully independent with transfers and ambulation and taking only p.o. pain meds. He should follow-up in my office in 2 weeks. He should be sent home on baby aspirin 81 mg p.o. twice daily for 30 days As prophylaxis against DVTs. To his hip incisions 3-4 times a day for an hour each time. Should continue to play ice Subjective Subjective Patient reports: feels better and pain is less Interval history since last seen: Jake feels he is doing well. He feels that the pain from the broken hip is dramatically decreased now that is been fixed. He says his breathing feels a lot better as well. Exam Narrative Exam Narrative: His Richardson is out he is urinating. His vital signs are stable. He is sitting in the physical therapy room breathing comfortably on just room air. he basically transfers independently according to the therapist. She is already had him walk on stairs. His left hip range of motion is really not irritable. There is no unusual swelling in his left lower extremity. Objective Objective Clinical Data: Vital Signs Temperature 35.7 C L 10/11/19 08:12 Temperature Source Tympanic 10/11/19 08:12 Pulse 79 10/11/19 08:12 Pulse Rhythm Regular 10/11/19 10:30 Pulse 81 10/09/19 19:20 Respiratory Rate 16 10/11/19 08:12 Respiratory Effort Non-Labored 10/11/19 10:30 Respiratory Depth Normal 10/11/19 10:30 Respiratory Pattern Normal 10/11/19 10:30 Blood Pressure 116/71 10/11/19 08:12 Blood Pressure Mean 83 10/09/19 18:16 Blood Pressure Position Sitting 10/09/19 15:40 Pulse Oximetry 97 10/11/19 08:12 Respiratory End-tidal CO2 30 10/10/19 16:21 Oxygen Delivery Method Room Air 10/11/19 08:12 Oxygen Flow Rate 0 10/11/19 08:12 Pain Level 4 10/11/19 11:07 Intake & Output 10/10/19 10/11/19 10/11/19 23:59 11:59 23:59 Intake Total 1968.5 / 2916.5 480 / 720 240 / 720 Output Total 600 / 1350 300 / 300 Balance 1368.5 / 1566.5 180 / 420 240 / 420 Intake: IV 868.5 / 1816.5 Oral 1100 / 1100 480 / 720 240 / 720 Output: Urine 450 / 1200 300 / 300 Estimated Blood Loss 150 / 150 Other: Urine Color Yellow Dark Fawn Urine Appearance Clear Clear Comment 300 MLS IN BAG WHEN ENTERING OR post richardson removal. voided into toilet,, missed hat, reports it was a large void Stool Size Small Stool Characteristics Soft Formed Brown Emesis Description None Laboratory Results WBC 5.50 k/cumm (4.4-10.8) 10/09/19 16:28 RBC 4.23 m/cumm (4.50-6.00) L 10/09/19 16:28 Hgb 13.4 g/dL (13.5-17.5) L 10/09/19 16:28 Hct 39.2 % (40.0-50.0) L 10/09/19 16:28 MCV 92.7 fL (80-95) 10/09/19 16:28 MCH 31.7 pg (27.0-33.0) 10/09/19 16:28 MCHC 34.2 g/dL (32.0-36.0) 10/09/19 16:28 RDW 14.5 % (11.8-14.1) H 10/09/19 16:28 Plt Count 183 x1000/uL (130-400) 10/09/19 16:28 MPV 10.0 fL (8.0-11.0) 10/09/19 16:28 Immature Gran % 0.2 % 10/09/19 16:28 Neutrophils % 72.0 10/09/19 16:28 Lymphocytes % 12.5 10/09/19 16:28 Monocytes % 9.6 10/09/19 16:28 Eosinophils % 5.5 10/09/19 16:28 Basophils % 0.2 10/09/19 16:28 Absolute Neutrophils 3.96 k/cumm (1.2-6.7) 10/09/19 16:28 Absolute Lymphocytes 0.69 k/cumm (1.2-3.4) L 10/09/19 16:28 Absolute Monocytes 0.53 k/cumm (0.11-0.7) 10/09/19 16:28 Absolute Eosinophils 0.30 k/cumm (0.0-0.7) 10/09/19 16:28 Absolute Basophils 0.01 k/cumm (0.0-0.2) 10/09/19 16:28 Sodium 142 mmol/L (136-145) 10/09/19 16:28 Potassium 3.9 mmol/L (3.5-5.1) 10/09/19 16:28 Chloride 107 mmol/L (98-107) 10/09/19 16:28 Carbon Dioxide 27.9 mmol/L (21.0-32.0) 10/09/19 16:28 Anion Gap 7.1 mmol/L (3-11) 10/09/19 16:28 BUN 17 mg/dL (7-18) 10/09/19 16:28 Creatinine 0.96 mg/dL (0.70-1.30) 10/09/19 16:28 Estimated GFR/1.73 m2 >= 60.00 (mL/min/1.73m2) 10/09/19 16:28 Glucose 96 mg/dL (74-106) 10/09/19 16:28 Calcium 8.2 mg/dL (8.5-10.1) L 10/09/19 16:28 Total Bilirubin 0.5 mg/dL (0.2-1.0) 10/09/19 16:28 AST 59 U/L (15-37) H 10/09/19 16:28 ALT 29 U/L (16-63) 10/09/19 16:28 Alkaline Phosphatase 87 U/L (46-116) 10/09/19 16:28 NT-Pro-B Natriuret Pep 205 pg/mL (<300) 10/09/19 16:28 Total Protein 7.2 g/dL (6.4-8.2) 10/09/19 16:28 Albumin 3.5 g/dL (3.4-5.0) 10/09/19 16:28 Patient ABO/Rh A Negative 10/10/19 13:18 Antibody Screen Negative 10/10/19 13:18
--- NOTE | 2019-10-11 15:27 | PT.INTREAT ---
Date of service: 10/11/19 Time of Service: 15:27 PT Notes Visit Reasons: HIP FRACTURE 10/11/2019 SUBJECTIVE: Pt stating he has minimal discomfort at rest. Increases with ambulation but does feel some stiffness as well. He notes he struggles with his breathing at baseline and he just has to pace himself. OBJECTIVE: Pt supine in bed finishing his lunch. He is agreeable to PT treatment. TRANSFERS Supine to sit: S Sit to supine: S Sit to stand: SBA Stand to sit: SBA GAIT Device: FWW Weight bearing: WBAT L Assist: CGA Distance: 100'x2 Deviation: Step to pattern. Stops to rest x 2 in the hurley for his breathing. STAIRS: Up and down 3-4 steps, 2-6 steps, 2 rails, step to, CGA ASSESSMENT: Pt progressing with his gait distance and he manages the stairs well without difficulty. Pain is being well managed. His breathing seems to be the limiting factor in his gait speed and distance. PLAN: Continue per POC. Treatment time: 35' [id number] Marry Fernandez PTA
--- NOTE | 2019-10-11 15:56 | CHAPLAIN ---
Jake was resting in bed when I visited. He told me about how he fell at the [employer], and the surgery that followed. He seems to be very confident about going home, although he lives alone. He identified some neighbor men as good supports for him. He said next year he may go to [place] for the winter, although he didn't fall because of ice.
[2019-10-11 16:00] VITALS: BP 98/60; PULSE 67; RESP 20; TEMP 37.1; O2SAT 93
[2019-10-11] MEDS: cefTRIAXone 1 GM/50 ML BAG IVPB (17:48)
[2019-10-11] MEDS: Acetaminophen 500 MG TAB 1000 MG PO (18:55)
[2019-10-11] MEDS: Pramipexole 0.5 MG TAB PO (21:46)
[2019-10-11] MEDS: Lactated Ringers 1,000 ML 30 ML IV (21:46)
[2019-10-11 23:41] VITALS: BP 103/65; PULSE 69; RESP 18; TEMP 36.7; O2SAT 92
[2019-10-12] MEDS: Ketorolac 30 MG/ML VIAL IVP ×2 (03:44→10:30)
[2019-10-12] MEDS: Acetaminophen 500 MG TAB 1000 MG PO (03:47)
[2019-10-12 04:10] VITALS: BP 90/52; PULSE 60; RESP 22; TEMP 36.9; O2SAT 96
[2019-10-12] MEDS: Levothyroxine 112 MCG TAB PO (05:29)
[2019-10-12 06:47] LABS: HCT 30.1 % (40.0-50.0); HGB 9.9 g/dL (13.5-17.5); Mean Corp. HGB Concentration 32.9 g/dL (32.0-36.0); Mean Corpuscular Volume 94.4 fL (80-95); Mean Platelet Volume 10.2 fL (8.0-11.0); Platelet Count 144 x1000/uL (130-400); RBC 3.19 m/cumm (4.50-6.00); RBC Distribution Width 15.1 % (11.8-14.1)
[2019-10-12 07:25] VITALS: BP 107/66; PULSE 60; RESP 20; TEMP 36.8; O2SAT 95
--- NOTE | 2019-10-12 08:29 | PGE_ITS ---
Date of Service Date of service: 10/12/19 Time of Service: 08:29 Assessment and Plan Assessment and plan (1) Hip fracture: Status: Acute Assessment and plan: Assessment: Progressing well at 48 hours post-op TFN for I-T fracture L femur. He is ready for discharge home provided he has help for meals and someone around if he has problems. If he doesn't have support at home, he may need SNF until he is more mobile. Plan: Get care management involved to coordinate discharge plans. Follow up in my office in 2 weeks. Take one baby aspirin/day for 30 days for DVT prophyla xis. Ice bag to lateral hip 3-4 times/day for 1 hour each time. May shower and get dressings wet. Let the mepilex dressings gradually come off by themselves. Subjective Subjective Patient reports: no new complaints, feels better and tolerating a regular diet Exam Narrative Exam Narrative: Moving well with walker. ROM L hip non-irritable to gentle passive motion. Dressings intact L hip. Afebrile VSS. Hgb 9.9g today. NVS L foot intact. Objective Objective Clinical Data: Abnormal lab results 10/12/19 Range/Units 06:25 RBC 3.19 L (4.50-6.00) m/cumm Hgb 9.9 L D (13.5-17.5) g/dL Hct 30.1 L D (40.0-50.0) % RDW 15.1 H (11.8-14.1) % Vital Signs Temperature 36.9 C 10/12/19 04:10 Temperature Source Tympanic 10/12/19 04:10 Pulse 60 10/12/19 04:10 Pulse Rhythm Regular 10/12/19 07:37 Pulse 81 10/09/19 19:20 Respiratory Rate 22 10/12/19 04:10 Respiratory Effort 10/12/19 07:37 Respiratory Depth Normal 10/12/19 07:37 Respiratory Pattern Normal 10/12/19 07:37 Blood Pressure 90/52 L 10/12/19 04:10 Blood Pressure Mean 83 10/09/19 18:16 Blood Pressure Position Sitting 10/09/19 15:40 Pulse Oximetry 96 10/12/19 04:10 Respiratory End-tidal CO2 30 10/10/19 16:21 Oxygen Delivery Method Room Air 10/12/19 04:10 Oxygen Flow Rate 0 10/12/19 04:10 Pain Level 4 10/12/19 04:10 Intake & Output 10/11/19 10/11/19 10/12/19 11:59 23:59 11:59 Intake Total 580 / 2160.5 1580.5 / 2160.5 Output Total 300 / 700 400 / 700 Balance 280 / 1460.5 1180.5 / 1460.5 Intake: IV 100 / 1200.5 1100.5 / 1200.5 Oral 480 / 960 480 / 960 Output: Urine 300 / 700 400 / 700 Other: Urine Color Dark Fawn Light Fawn Urine Appearance Clear Clear Clear Urine Odor Normal Comment post richardson removal. voided into toilet,, missed hat, reports it was a large void Stool Size Small Stool Characteristics Soft Formed Brown Voiding Methods Urinal Laboratory Results WBC 9.00 k/cumm (4.4-10.8) 10/12/19 06:25 RBC 3.19 m/cumm (4.50-6.00) L 10/12/19 06:25 Hgb 9.9 g/dL (13.5-17.5) L D 10/12/19 06:25 Hct 30.1 % (40.0-50.0) L D 10/12/19 06:25 MCV 94.4 fL (80-95) 10/12/19 06:25 MCH 31.0 pg (27.0-33.0) 10/12/19 06:25 MCHC 32.9 g/dL (32.0-36.0) 10/12/19 06:25 RDW 15.1 % (11.8-14.1) H 10/12/19 06:25 Plt Count 144 x1000/uL (130-400) 10/12/19 06:25 MPV 10.2 fL (8.0-11.0) 10/12/19 06:25 Immature Gran % 0.2 % 10/09/19 16:28 Neutrophils % 72.0 10/09/19 16:28 Lymphocytes % 12.5 10/09/19 16:28 Monocytes % 9.6 10/09/19 16:28 Eosinophils % 5.5 10/09/19 16:28 Basophils % 0.2 10/09/19 16:28 Absolute Neutrophils 3.96 k/cumm (1.2-6.7) 10/09/19 16:28 Absolute Lymphocytes 0.69 k/cumm (1.2-3.4) L 10/09/19 16:28 Absolute Monocytes 0.53 k/cumm (0.11-0.7) 10/09/19 16:28 Absolute Eosinophils 0.30 k/cumm (0.0-0.7) 10/09/19 16:28 Absolute Basophils 0.01 k/cumm (0.0-0.2) 10/09/19 16:28 Sodium 142 mmol/L (136-145) 10/09/19 16:28 Potassium 3.9 mmol/L (3.5-5.1) 10/09/19 16:28 Chloride 107 mmol/L (98-107) 10/09/19 16:28 Carbon Dioxide 27.9 mmol/L (21.0-32.0) 10/09/19 16:28 Anion Gap 7.1 mmol/L (3-11) 10/09/19 16:28 BUN 17 mg/dL (7-18) 10/09/19 16:28 Creatinine 0.96 mg/dL (0.70-1.30) 10/09/19 16:28 Estimated GFR/1.73 m2 >= 60.00 (mL/min/1.73m2) 10/09/19 16:28 Glucose 96 mg/dL (74-106) 10/09/19 16:28 Calcium 8.2 mg/dL (8.5-10.1) L 10/09/19 16:28 Total Bilirubin 0.5 mg/dL (0.2-1.0) 10/09/19 16:28 AST 59 U/L (15-37) H 10/09/19 16:28 ALT 29 U/L (16-63) 10/09/19 16:28 Alkaline Phosphatase 87 U/L (46-116) 10/09/19 16:28 NT-Pro-B Natriuret Pep 205 pg/mL (<300) 10/09/19 16:28 Total Protein 7.2 g/dL (6.4-8.2) 10/09/19 16:28 Albumin 3.5 g/dL (3.4-5.0) 02/10/20 16:28 Patient ABO/Rh A Negative 10/10/19 13:18 Antibody Screen Negative 10/10/19 13:18
[2019-10-12] MEDS: Omeprazole 20 MG CAPCR 40 MG PO (08:40)
[2019-10-12] MEDS: Hydroxychloroquine 200 MG TAB PO (08:40)
[2019-10-12] MEDS: HYDROcodone 5/Acetaminophen 325 TAB PO (08:41)
[2019-10-12] MEDS: Lisinopril 20 MG TAB 40 MG PO (08:41)
[2019-10-12] MEDS: Normal Saline Flush 10 ML SYR IVP ×2 (08:45→10:31)
[2019-10-12] MEDS: NIFEdipine-CR 30 MG TABCR PO (08:45)
[2019-10-12] MEDS: Aspirin 81 MG CHEW PO (10:30)
[2019-10-12] MEDS: DOXYCYCLINE 100 MG in Normal Saline 100 ML IVPB (10:54)
[2019-10-12] MEDS: Normal Saline 500 ML 30 ML IVPB (10:56)
--- NOTE | 2019-10-12 11:40 | PT.INTREAT ---
Date of service: 10/12/19 Time of Service: 11:40 PT Notes Visit Reasons: HIP FRACTURE 10/12/2019 SUBJECTIVE: Jake stating 4/10 discomfort in the hip. His breathing is a little more labored today. He also notes stiffness through the hip. OBJECTIVE: Pt seated in recliner. Agreeable to PT treatment. TRANSFERS Sit to stand: SBA Stand to sit: SBA GAIT Device: FWW Weight bearing: WBAT L Assist: SBA Distance: 100' Deviation: Step to pattern, slow laquita due to SOB. STAIRS: 3-4, 2-6, step to pattern, bilateral rails, SBA. Vitals post ambulation: 72 b/m, 88% on RA. Nursing aware. ASSESSMENT: Pt experience a little more discomfort today with weight bearing and sit to stand transfers. He is utilizing his UE more when advancing his right foot forward with gait. He manages well with the walker and has no difficulty with the stairs. His breathing is his limiting factor. PLAN: Continue per POC. Treatment time: 35' [id number] Marry Fernandez PTA
--- NOTE | 2019-10-12 12:25 | PDOC.HHF2F_ITS ---
Home Health Certification Home Health Certification: 1. Encounter Date and Reason I certify that JAMIL LONG was seen by Martinez Tavares on 10/12/19 and that I had a [id number] encounter with this patient that meets the physician face to face encounter requirements. 2. Clinical Findings Supporting Skilled Need and Homebound Status I certify that home health services are medically necessary, include either intermittent senior living and/or physical/speech therapy, and that this patient is homebound in that absences from the home require considerable and taxing effort and are infrequent or of short duration, or are attributable to the need to receive medical care. [X] (a) Attached documentation from encounter provides clinical findings supporting skilled need and homebound status (including what assistance patient requires to leave the home). The encounter with the patient was in whole, or in part, for the following medical condition, which is the primary reason for home health care: HIP FRACTURE Long-Term: Physical Therapy: Physical therapy needed to develop home safety plan and restore the ability of the patient to ambulate independently and safely following hip fracture. Speech Therapy: Homebound: Patient is unable to leave home without assistance due to unsteady gait, impaired transfers, and inability to negotiate stairs unassisted. 3. Certification and Authentication I certify that I composed the above information based on my clinical judgement relating to this patient's medical condition and, if applicable, clinical findings communicated to me by the NPP or inpatient physician who performed the Home Health Referral. All further orders will be obtained through Dr Simone Flanagan (Community Based Physician - PCP)
[2019-10-12 14:08] VITALS: BP 125/65; PULSE 69; RESP 24; TEMP 36.7; O2SAT 92
--- NOTE | 2019-10-12 14:56 | DSE_ITS ---
Date of service: 10/12/19 Time of Service: 14:56 DS: Diagnosis Discharge Diagnosis (1) Hip fracture: Status: Acute Discharge Plan Disposition Patient Disposition: HOME W/HOME HEALTH SERVICE Condition: Improving Discharge Details Chief Complaint: Orthopedic Reason For Visit: HIP FRACTURE Admit Date/Time: 10/09/19 18:51 Admit Provider: Theo Rice Attending Provider: Theo Rice Primary Care Provider: Simone Flanagan ED Provider: Caridad Hinojosa [facility] Hospital Course: 74-year-old male with history of rheumatoid arthritis and associated chronic interstitial lung disease who presented after slipping on the ice on his left side with left hip fracture seen on x-ray emergency room. Some increased cough and sputum production was also noted with increased interstitial markings on his x-ray and possible superimposed pneumonia. He was started on ceftriaxone and doxycycline to treat this. He did have a history of CHF on the record, and had some increased shortness of breath his first night that required a single dose of 20 mg of furosemide. Given this, stat echocardiogram was done prior to surgery on 10/10/2019, which demonstrated preserved ejection fraction and no other new concerning findings. Patient had an open reduction internal fixation of left hip on 10/10/[address] Lizarraga, without complications. He was ambulating well with a walker with physical therapy prior to discharge. Of note, weekly dose of methotrexate and Actemra were held when they were due on the day of his surgery. He was discharged with 2 additional days of doxycycline after getting 3 days of IV ceftriaxone and doxycycline. His respiratory status was at his baseline. PCP may consider repeating the chest x-ray to see if the increased interstitial markings were simply infection or progression of his chronic interstitial lung disease. Patient had previously seen pulmonology but has not recently. His hemoglobin and hematocrit were slightly above baseline mild chronic anemia at admission, and below his baseline at discharge after his surgery. There was no bleeding noted. This may be followed with repeat blood counts by primary care. Home Meds and New Rx's Prescriptions: New hydrocodone-acetaminophen 5-325 mg Tablet 1 tab PO Q6H PRN PRNQty: 20 RF: 0 acetaminophen [Mapap Extra Strength] 500 mg Tablet 1,000 mg PO Q8H PRNQty: 0 RF: 0 aspirin 81 mg Tablet,Chewable 81 mg PO DAILY Qty: 29 RF: 0 doxycycline hyclate 100 mg capsule 100 mg PO BID Qty: 4 RF: 0 Continued multivitamin [Daily Vitamin] 1 EACH tablet 1 ea PO DAILY RF: 0 ascorbic acid (vitamin C) 500 MG tablet 500 mg PO DAILY RF: 0 hydroxychloroquine 200 MG tablet 200 mg PO BID RF: 0 lisinopril 40 MG tablet 40 mg PO DAILY RF: 0 nifedipine 30 MG tablet extended release 24hr 30 mg PO DAILY Qty: 30 RF: 2 sildenafil (pulm.hypertension) 20 MG tablet 40 mg PO PRN Qty: 30 RF: 3 diclofenac sodium [Voltaren] 100 GM gel 100 gm Topical DAILY RF: 0 omeprazole 40 MG capsule,delayed release(DR/EC) 40 mg PO DAILY Qty: 1 RF: 0 levothyroxine 112 mcg tablet 112 mcg PO DAILY Qty: 90 RF: 3 baclofen 10 mg tablet 5 mg PO QID PRN (Reason: muscle spasm) Qty: 180 RF: 1 Methotrexate (Anti-Rheumatic) 2.5 mg tablets,dose pack 15 mg PO once a week RF: 0 Actemra 162 mg/0.9 mL syringe 162 mg subcut QWEEK RF: 0 pramipexole 0.5 mg tablet 0.5 mg PO HS Qty: 90 RF: 3 Discontinued doxycycline hyclate 100 mg Tablet 500 mg PO BID RF: 0 Discharge Instructions Instructions: Hip Fracture (GEN), ORIF of Hip Fracture (DC) Additional Instructions: Finish 2 more days of antibiotics for lung infection. Your primary care doctor may want you to repeat the chest x-ray or follow up with pulmonology Dr. Lizarraga will remove your dressing when you see him in 2 weeks. you should take baby aspirin for [address] Lizarraga to prevent blood clots. We have ordered physical therapy at home Stand Alone Forms: Nursing Discharge Form Referrals: Everton Lizarraga MD [ [facility] STAFF PHYSICIAN] - 10/25/19 11:15 am Simone Flanagan DO [Primary Care Provider] - 10/24/19 1:00 pm Activity:: Activity as Tolerated Equipment/Supplies:: Walker Diet:: As Tolerated Discharge Orders Discharge Orders: Discharge Order (Routine); Ordered 10/12/19 Ordered By: Martinez Tavares DS: Summary Status at Discharge Functional status at discharge: uses cane/walker Overall status at discharge: patient is progressing back to baseline Mental Status: mental status grossly normal Speech and Movement: speech and movement normal Mood: congruent mood Affect: normal affect Exam Narrative Exam Narrative: General: Alert and oriented x3, sitting up in chair, no acute distress HEENT: Moist mucous membranes Lungs: Normal respiratory effort. Crackles most notable at the right base, very slight on left, good air movement. Cardiovascular: Regular rate and rhythm, no murmurs gallops or rubs. Abdomen: Active bowel sounds, soft, nontender nondistended. Extremities: No cyanosis clubbing or edema. Nontender to palpation. Dressing on left leg clean dry and intact Psych Mental Status: mental status grossly normal Speech and Movement: speech and movement normal Mood: congruent mood Affect: normal affect DS: Data Vitals/I&O Vitals and I&O: Vital Signs Temperature 36.7 C 10/12/19 14:08 Temperature Source Temporal Artery Scan 10/12/19 14:08 Pulse 69 10/12/19 14:08 Pulse Rhythm Regular 10/12/19 10:07 Pulse 81 10/09/19 19:20 Respiratory Rate 24 10/12/19 14:08 Respiratory Effort 10/12/19 10:07 Respiratory Depth Normal 10/12/19 10:07 Respiratory Pattern Normal 10/12/19 10:07 Blood Pressure 125/65 10/12/19 14:08 Blood Pressure Mean 83 10/09/19 18:16 Blood Pressure Position Sitting 10/09/19 15:40 Pulse Oximetry 92 L 10/12/19 14:08 Respiratory End-tidal CO2 30 10/10/19 16:21 Oxygen Delivery Method Room Air 10/12/19 14:08 Oxygen Flow Rate 0 10/12/19 14:08 Pain Level 4 10/12/19 14:08 Intake & Output 10/11/19 10/12/19 10/12/19 23:59 11:59 23:59 Intake Total 1580.5 / 2160.5 330 / 330 Output Total 400 / 700 200 / 475 275 / 475 Balance 1180.5 / 1460.5 130 / -145 -275 / -145 Intake: IV 1100.5 / 1200.5 330 / 330 Oral 480 / 960 Output: Urine 400 / 700 200 / 475 275 / 475 Other: Urine Color Light Fawn Yellow Yellow Urine Appearance Clear Clear Clear Urine Odor Normal Normal Stool Size Moderate Stool Characteristics Formed Voiding Methods Urinal Urinal Data Completed and Pending Labs on day of discharge: Labs from last 24 hours 10/12/19 06:25 WBC 9.00 RBC 3.19 L Hgb 9.9 L D Hct 30.1 L D MCV 94.4 MCH 31.0 MCHC 32.9 RDW 15.1 H Plt Count 144 MPV 10.2 [facility] Medical History Congestive heart failure (CHF) (Chronic) per records received from [facility]; 2011 [place] shows EF 60%, mild diastolic dysfunction, ? 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
--- NOTE | 2019-10-12 17:03 | PDOC.CMDIS ---
- If Service Date Differs Date of service: 10/12/19 Time of Service: 17:03 LACE Index Scoring Tool - Questions: Length of Stay (in days): 3 Acuity (Admit via E.D.?): Yes Comorbidities: Congestive Heart Failure E.D. Visits: 1 - Answers: Total Score: 9 Risk of Readmission: Low Risk Care Management Discharge Reason for Hospitalization: Hip fracture Discharge Plan: Hernandez will be discharged home with new home health PT. He will follow up with his surgeon, PCP and discharge plan of care. Hernandez will transport vis private vehicle with a friend. Patient/Family Education Needs: Discharge plan, limitations, follow up plan, Ask Me Three. Services Needed at Discharge: Home Health Care Services (PT)
--- NOTE | 2019-10-13 10:58 | PT.INDS ---
Date of service: 10/13/19 Time of Service: 10:59 PT Notes Visit Reasons: HIP FRACTURE Physical Therapy Inpatient Discharge Date: 10/13/2019 Dates of Service: 10/11/2019 through 10/12/2019 This is a clinical summary of care provided on the duration of dates listed above. No charge was made in the completion of this documentation. Referring Doctor: Everton Lizarraga M.D. PT Orders: PT CONSULT: s/p ortho surgery Precautions: Fall. Standard. Activity as tolerated. WBAT on L LE. Patient Profile/Admitting Diagnosis: Pt is a 74-year-old male with a history of CHF, iron deficiency, and rheumatoid arthritis, that presented to the ER on 10/09/2019 following a fall. He was admitted to the hospital with a diagnosis of a left hip intertrochanteric fracture and pneumonia, presenting now status post left hip ORIF on post-operative day zero. PMHX: Medical History Congestive heart failure (CHF) (Chronic) per records received from [facility]; [place] [facility] [facility] [place] EF 60%, mild diastolic dysfunction, ? more recent [facility] Essential hypertension (Acute) Gastroesophageal reflux disease (Chronic 09/09/11) Hiatal hernia (Chronic 11/23/16) endoscopy with Dr Olivier Hypertension (Chronic 05/30/79) DX WHEN APPLIED TO WORK; TREATED SINCE THEN Surgical History Colonoscopy - [facility] (04/29/15) Dr.Annick Olivier EGD - [facility] (11/23/16) Social History/Home Situation: Pt lives alone in his home in [place], [place]. Two steps to enter the home with railings on both sides. No stairs in the home. Per medical records, the closest relative is his niece in [place], [place]. Equipment Owned/DME: Cane, front-wheeled walker. Grab bars in the bathroom. Patient Profile/Admitting Diagnosis: Pt is a 74-year-old male with a history of CHF, iron deficiency, and rheumatoid arthritis, that presented to the ER on 10/09/2019 following a fall. He was admitted to the hospital with a diagnosis of a left hip intertrochanteric fracture and pneumonia, presenting now status post left hip ORIF on post-operative day zero. Objective: General Observation: Thromboembolic pumps on bilateral LEs. Langford catheter in place, removed by nursing prior to ambulation. IV line in R UE. Pain: 4/10 with rest, 6-7/10 with ambulation ROM: Right Upper Extremity: Shoulder Flexion WFL. Shoulder abduction WFL. Elbow flexion WFL. Wrist flexion WFL. Opening and closing of hand WFL. Left Upper Extremity: Shoulder Flexion WFL. Shoulder abduction WFL. Elbow flexion WFL. Wrist flexion WFL. Opening and closing of hand WFL. Right Lower Extremity: Hip flexion WFL. Hip abduction WFL. Knee flexion WFL. Ankle dorsiflexion WFL. Ankle plantarflexion WFL. Left Lower Extremity: Hip flexion 100 degrees. Hip abduction WFL. Knee flexion WFL. Ankle dorsiflexion WFL. Ankle plantarflexion WFL. Strength: Right Upper Extremity: Shoulder flexors 5/5. Shoulder abductors 5/5. Elbow flexors 5/5. Elbow extensors 5/5. Pressure Vessel Inspector strong. Left Upper Extremity: Shoulder flexors 5/5. Shoulder abductors 5/5. Elbow flexors 5/5. Elbow extensors 5/5. Pressure Vessel Inspector strong. Right Lower Extremity: Hip flexors 4/5. Hip abductors 5/5. Knee flexors 5/5. Knee extensors 5/5. Ankle dorsiflexors 5/5. Ankle plantarflexors 5/5. Left Lower Extremity: Hip flexors 2+/5. Hip abductors 3-/5. Knee flexors 4/5. Knee extensors 4+/5. Ankle dorsiflexors 5/5. Ankle plantarflexors 5/5. Sensation: Intact as to pain and pressure on bilateral lower extremities. Bed Mobility/Transfers: Rolling supervision Supine to sit supervision Sit to supine supervision Sit to stand SBA Stand to sit SBA Bed to chair SBA Chair to bed SBA Gait: Pt was able to ambulate 100 feet, WBAT on the L LE, using a front-wheeled walker. SBA provided by [employer]. Stairs: Pt was able to tolerate ascending and descending 4-inch step x 3 and 6-inch step x 2 with bilateral rails. CGA provided by [employer]. Step through gait pattern. Following ambulation, the pt?s SpO2 dropped to 88% with HR of 72 bpm Balance: Static Sitting: Normal Dynamic Sitting: Normal Static Standing: Fair Dynamic Standing: Fair Assessment: Pt is a 74-year-old male with a history of CHF, iron deficiency, and rheumatoid arthritis, that presented to the ER on 10/09/2019 following a fall. He was admitted to the hospital with a diagnosis of a left hip intertrochanteric fracture and pneumonia, presenting now status post left hip ORIF on post-operative day zero. Pt presented with impairment level findings and functional limitations as listed below. Pt demonstrated impaired respiratory and cardiovascular function with increased respiratory rate and SOB on exertion as demonstrated through decreased oxygen saturation following ambulation, which he reports to be his baseline. He would continue to benefit from skilled physical therapy following discharge. Patient presented with clinical signs and symptoms consistent with current/admitting diagnoses that have resulted to mobility limitations, gait instability, and generalized weakness as demonstrated by the following impairment level findings: 1. Decreased strength to B LE major muscle groups 2. Impaired sitting/standing balance 3. Impaired activity tolerance 4. Limitation of joint range of motion in left hip 5. Impaired respiratory and cardiovascular function Impairments continue to contribute to the following functional limitations: 1. Dependent bed mobility skills 2. Increased dependence with transfers 3. Inability to safely ambulate without assistive device and physical assistance 4. Increase completion time for mobility ADL performance 5. Increased fall risk 6. Inability to negotiate steps alone safely Patient is assessed as a 09207 moderate complexity based on the following: History: Pt presents with impairment level findings and functional limitations as listed below. AM-PAC raw score of 17 with 51% deficit. Examination: Demonstrable impairment in strength, balance, and range of motion with underlying impairments and functional limitations as documented above Presentation: Evolving Decision Makin moderate complexity Goals: Goals X1 week 1. Supine-Sit independent -NOT MET 2. Sit-Supine independent -NOT MET 3. Sit-Stand independent -NOT MET 4. Stand-Sit independent -NOT MET 5. Bed-Chair independent -NOT MET 6. Chair-Bed independent -NOT MET 7. Independent gait on level surface with use of least restrictive device for at least 300 feet without report of pain. -NOT MET 8. Independent stair negotiation while holding onto bilateral rails for at least 5 steps without report of pain. -MET 9. Independent with home exercise program -NOT MET 10. Good static and dynamic standing balance/tolerance -NOT MET DISCHARGE RECOMMENDATIONS: Discharge to home with home health physical therapy for continued services in order to progress mobility level, strength, and balance in preparation for a safe discharge to home. No equipment recommendations at this time. Thank you very much for this referral. Olesya Quevedo, SPT Doctor of Physical Therapy Student [facility] Supervision provided by Digna Castle PT, DPT, CLT [facility] [place], [place]
== END 2019-10-12 16:50 | disposition home health service (06) | DRG 480 ==
LOC: ER 19:07 → MS 19:50
PROVIDERS: Orthopaedic Surgery; Admitting Provider General Practice; Emergency Provider Physician Assistant; PCP Family Medicine; Visit Provider Family Medicine
PROC: 0QS706Z Reposition Left Upper Femur with Intramedullary Internal Fixation Device, Open Approach (ICD-10-PCS; CPT 27245; principal; 2019-10-10 12:45)
DX: S72.142A Displaced intertrochanteric fracture of left femur, initial encounter for closed fracture (principal); J18.9 Pneumonia, unspecified organism; W00.0XXA Fall on same level due to ice and snow, initial encounter; I50.9 Heart failure, unspecified; M05.10 Rheumatoid lung disease with rheumatoid arthritis of unspecified site; J84.10 Pulmonary fibrosis, unspecified; D50.9 Iron deficiency anemia, unspecified; I10 Essential (primary) hypertension; K21.9 Gastro-esophageal reflux disease without esophagitis; Z87.891 Personal history of nicotine dependence; Z79.899 Other long term (current) drug therapy; E03.9 Hypothyroidism, unspecified
CPT/HCPCS: 27245; 36415; 80053; 85027; 86850; 86900; 86901; 93005; 96365; 96367; 96375; 97162; 97530; 99222; 99232; 99238; 99285; NC; 71045; 73501; 73502; 83880; 85025; 93010; 93306; 99284; J0131; J0690; J0696; J1720; J1885; J1941; J2001; J2060; J2250; J2370; J2405; J2704; J3010; J3360; J7620

== ENCOUNTER 2019-10-24 13:41 | Outpatient (REF) | payer BC, SELFPAY ==
[2019-10-24 14:40] LABS: Abs Immature Grans 0.03 k/cumm (0.0-0.09); Absolute Basophil Count 0.02 k/cumm (0.0-0.2); Absolute Eosinophil Count 0.19 k/cumm (0.0-0.7); Absolute Monocyte Count 0.77 k/cumm (0.11-0.7); Absolute Neutrophil Count 7.88 k/cumm (1.2-6.7); Basophils % 0.2; HCT 32.2 % (40.0-50.0); HGB 10.6 g/dL (13.5-17.5); Immature Grans % 0.3 %; Lymphocytes % 8.3; Mean Corp. HGB Concentration 32.9 g/dL (32.0-36.0); Mean Corpuscular Hemoglobin 31.8 pg (27.0-33.0); Mean Corpuscular Volume 96.7 fL (80-95); Mean Platelet Volume 9.7 fL (8.0-11.0); Monocytes % 7.9; Neutrophils % 81.3; Platelet Count 347 x1000/uL (130-400); RBC 3.33 m/cumm (4.50-6.00); RBC Distribution Width 16.5 % (11.8-14.1); White Blood Cell Count 9.69 k/cumm (4.4-10.8)
== END 2019-10-24 14:01 ==
LOC: LBN 13:41
PROVIDERS: PCP Family Medicine; Visit Provider Family Medicine
DX: D64.9 Anemia, unspecified (principal)
CPT/HCPCS: 85025

== ENCOUNTER 2019-10-25 01:40 | Outpatient (CLI) | payer BC, SELFPAY ==
--- NOTE | 2019-10-25 08:15 | DI.US_ITS ---
EXAM: US LOWER EXTREMITY VENOUS LT US LOWER EXTREMITY VENOUS LT CLINICAL HISTORY: Edema S/P hip fx repair, r/o DVT, R60.0. Edema S/P hip fx repair, r/o DVT, R60.0 TECHNIQUE: Lower extremity venous ultrasound performed using grayscale, color-flow, and spectral Dop pler analysis. COMPARISON: No exams were available for comparison FINDINGS: The common femoral, femoral and popliteal veins demonstrate normal compressibility, augmentation, and color Doppler. The posterior tibial veins are patent. The saphenous vein appears free of thrombus. There is a Haile's cyst measuring 4.3 by 1.3 x 2.5 cm. Some edema is also seen in the subcutaneous f at. IMPRESSION: No evidence of DVT. Small Haile's cyst. DATA REPOSITORY:
== END 2019-10-25 02:00 ==
PROVIDERS: PCP Family Medicine; Visit Provider Family Medicine
DX: R60.0 Localized edema (principal); M71.22 Synovial cyst of popliteal space [Baker], left knee
CPT/HCPCS: 93971

== ENCOUNTER 2019-10-25 11:56 | Outpatient (CLI) | payer BC, SELFPAY ==
--- NOTE | 2019-10-25 11:30 | DI.RAD_ITS ---
EXAM: XR HIP LT COMPLETE AP PELVIS INDICATION: left femur fracture. COMPARISON: XR HIP LT COMPLETE AP PELVIS from 10/10/2019 TECHNIQUE: 2D digital imaging was performed. FINDINGS: There has been continued healing at the proximal left femoral fracture. There is no change in hardwa re position. No new abnormalities are seen. IMPRESSION DATA REPOSITORY: RADIATION DOSE DELIVERED:
== END 2019-10-25 12:16 ==
LOC: DIORT 12:13 → DIORS 12:13
PROVIDERS: PCP Family Medicine; Visit Provider Physician Assistant
DX: S72.142D Displaced intertrochanteric fracture of left femur, subsequent encounter for closed fracture with routine healing (principal)
CPT/HCPCS: 73502

== ENCOUNTER 2019-11-05 14:29 | Inpatient (IN) | payer BC, SELFPAY ==
[2019-11-05] VITALS (49 sets, daily range): BP systolic 67–135; BP diastolic 45–72; PULSE 77–93; RESP 3–30; TEMP 36.1–36.6; O2SAT 88–100
--- NOTE | 2019-11-05 | DI.CT_ITS ---
EXAM: CT LOWER EXTREMITY LT WO CLINICAL HISTORY: Left lower leg pain and swelling. TECHNIQUE: Imaging Protocol: Axial computed tomography images with coronal and sagittal reformatted images were created and reviewed. CONTRAST MATERIAL: Intravenous: Omnipaque 350 Contrast volume:0 mL contrast route:IV - Oral: No COMPARISON: No exams were available for comparison FINDINGS: Bones: The osseous structures and articular surfaces are intact. There is no evidence of fracture or dislocation. Bony alignment is satisfactory. The mid-foot is well maintained. There is edema seen th roughout the lower extremity. No findings to suggest osteomyelitis. Degenerative changes are seen i n the foot. There is chondrocalcinosis in the knee. No lytic or sclerotic lesions are identified. Soft Tissues: Atherosclerosis. IMPRESSION: Edema or cellulitis of the lower leg. No evidence of osteomyelitis. DATA REPOSITORY: All CT scans at this facility are submitted to the National Radiology Data Registry (NRDR) Dose Index Registry (DIR) with the [employer] ([employer]). RADIATION OPTIMIZATION: All CT scans at this facility use at least one of these dose optimization te chniques: automated exposure control; mA and/or kV adjustment per patient size (includes targeted exa ms where dose is matched to clinical indication); or iterative reconstruction.
--- NOTE | 2019-11-05 14:54 | W.ED.GENAD ---
Discharge Plan Disposition Patient Disposition: [facility] INPATIENT Condition: Stable Discharge Details Chief Complaint: SOB Clinical Impression: Hypoxia, Acute exacerbation of CHF (congestive heart failure), History of pulmonary fibrosis Admit Date/Time: 11/05/19 18:04 Admit Provider: Cameron Valverde Attending Provider: Cameron Valverde Primary Care Provider: Simone Flanagan ED Provider: Neda Iraheta Medical Decision Making 1445 -- 74-year-old male with a history of CHF, pulmonary fibrosis, hypertension, hyperlipidemia with recent left hip replacement presents for persistent difficulty breathing today and increased swelling and pain in his feet over the last few weeks. O2 sat 80s per EMS on room air, increased to high 90s on 2 L. Patient with crackles left base and diminished breath sounds right mid to lower lung base. He has 2+ pitting edema and scattered ecchymosis to left lower extremity. Left hip surgical site healing well. He has bilateral pitting edema to feet distal pulses intact. EKG notes a rate of 85, sinus with no acute ST ischemic changes. Differential diagnosis includes acute exacerbation of CHF or pulmonary fibrosis, pneumonia, ACS, PE. Will check screening labs, chest x-ray and give DuoNeb and reassess. 1630 --patient reassessed -scattered wheezing and rhonchi. Will give another DuoNeb and Solu-Medrol. Labs and imaging reviewed. Normal white blood cell count. Creatinine 1.83 with GFR of 36 which is diminished compared to baseline. Troponin negative. BNP 544. Urinalysis negative. Chest x-ray notes bilateral pleural effusions with questionable consolidation right base. Dose of Lasix IV ordered. Lactate obtained and 1.7. Procalcitonin within normal limits. Will hold on antibiotics at this time. 1730 --case discussed with hospitalist who accepts patient for admission. Medical Records Medical records reviewed: Yes I reviewed the patient's medical records. Imaging Data Radiologic Study: Radiologist's impression: XR Chest, 2 Views Exam date and time: 11/05/2019 4:20 PM Age: 74 years old Clinical indication: Other: SOB, h/o chf/ R/O chf/pneumonia TECHNIQUE: Imaging protocol: XR of the chest Views: 2 views. COMPARISON: XR CHEST 1V IN DI DEPT 10/09/2019 4:56 PM FINDINGS: Diffuse interstitial lung scarring. Increased density at the right lung base as compared to the prior study suggesting a possible area of superimposed pneumonia and or atelectasis. Moderate cardiomegaly. Development of a small left pleural effusion. Overall the interstitial markings are slightly increased and the possibility of some superimposed interstitial edema could not entirely be excluded. Further clinical correlation is needed. IMPRESSION: Underlying interstitial lung scarring with an overall increase in interstitial markings and consolidation at the right lung base. The possibility of pneumonia or focal edema at the right lung base could not be excluded as well as the presence of interstitial edema secondary to congestive heart failure particularly with the new small left pleural effusion present. Lab Data Lab results reviewed: Yes I reviewed the patient's lab results. Labs: 11/05/19 17:49 Blood Blood Culture - Pending 11/05/19 17:38 Blood Blood Culture - Pending Laboratory Tests Range/Units 11/05/19 11/05/19 11/05/19 15:11 15:11 15:11 WBC (4.4-10.8) k/cumm 5.99 RBC (4.50-6.00) m/cumm 3.65 L Hgb (13.5-17.5) g/dL 11.4 L Hct (40.0-50.0) % 35.0 L MCV (80-95) fL 95.9 H MCH (27.0-33.0) pg 31.2 MCHC (32.0-36.0) g/dL 32.6 RDW (11.8-14.1) % 15.4 H Plt Count (130-400) x1000/uL 399 MPV (8.0-11.0) fL 9.0 Immature Gran % % 0.2 Neutrophils % 81.1 Lymphocytes % 8.0 Monocytes % 8.0 Eosinophils % 2.5 Basophils % 0.2 Absolute Neutrophils (1.2-6.7) k/cumm 4.86 Absolute Lymphocytes (1.2-3.4) k/cumm 0.48 L Absolute Monocytes (0.11-0.7) k/cumm 0.48 Absolute Eosinophils (0.0-0.7) k/cumm 0.15 Absolute Basophils (0.0-0.2) k/cumm 0.01 Sodium (136-145) mmol/L 140 Potassium (3.5-5.1) mmol/L 4.9 Chloride (98-107) mmol/L 103 Carbon Dioxide (21.0-32.0) mmol/L 26.8 Anion Gap (3-11) mmol/L 10.2 BUN (7-18) mg/dL 70 H Creatinine (0.70-1.30) mg/dL 1.83 H Estimated GFR/1.73 m2 (mL/min/1.73m2) 36.47 Glucose (74-106) mg/dL 89 Lactate (0.6-1.4) mmol/L Calcium (8.5-10.1) mg/dL 8.8 Magnesium (1.8-2.4) mg/dL 2.4 Total Bilirubin (0.2-1.0) mg/dL 0.5 AST (15-37) U/L 113 H ALT (16-63) U/L 46 Alkaline Phosphatase (46-116) U/L 136 H Troponin I (<0.06) ng/Ml < 0.05 NT-Pro-B Natriuret Pep (<300) pg/mL 544 H Total Protein (6.4-8.2) g/dL 7.5 Albumin (3.4-5.0) g/dL 2.9 L Procalcitonin ng/mL Urine Color (Yellow) Urine Clarity (Clear) Urine pH (5-8) Ur Specific Patten (1.005-1.025) Urine Protein (Negative) mg/dL Urine Ketones (Negative) mg/dL Urine Blood (Negative) Urine Nitrite (Negative) Urine Bilirubin (Negative) Urine Urobilinogen (Up TO 0.2) EU/dL Ur Leukocyte Esterase (Negative) Urine Glucose (Negative) mg/dL Range/Units 11/05/19 11/05/19 15:30 17:38 WBC (4.4-10.8) k/cumm RBC (4.50-6.00) m/cumm Hgb (13.5-17.5) g/dL Hct (40.0-50.0) % MCV (80-95) fL MCH (27.0-33.0) pg MCHC (32.0-36.0) g/dL RDW (11.8-14.1) % Plt Count (130-400) x1000/uL MPV (8.0-11.0) fL Immature Gran % % Neutrophils % Lymphocytes % Monocytes % Eosinophils % Basophils % Absolute Neutrophils (1.2-6.7) k/cumm Absolute Lymphocytes (1.2-3.4) k/cumm Absolute Monocytes (0.11-0.7) k/cumm Absolute Eosinophils (0.0-0.7) k/cumm Absolute Basophils (0.0-0.2) k/cumm Sodium (136-145) mmol/L Potassium (3.5-5.1) mmol/L Chloride (98-107) mmol/L Carbon Dioxide (21.0-32.0) mmol/L Anion Gap (3-11) mmol/L BUN (7-18) mg/dL Creatinine (0.70-1.30) mg/dL Estimated GFR/1.73 m2 (mL/min/1.73m2) Glucose (74-106) mg/dL Lactate (0.6-1.4) mmol/L 1.7 H Calcium (8.5-10.1) mg/dL Magnesium (1.8-2.4) mg/dL Total Bilirubin (0.2-1.0) mg/dL AST (15-37) U/L ALT (16-63) U/L Alkaline Phosphatase (46-116) U/L Troponin I (<0.06) ng/Ml NT-Pro-B Natriuret Pep (<300) pg/mL Total Protein (6.4-8.2) g/dL Albumin (3.4-5.0) g/dL Procalcitonin ng/mL 0.1 Urine Color (Yellow) Cameron Urine Clarity (Clear) Clear Urine pH (5-8) 5.0 Ur Specific Patten (1.005-1.025) 1.020 Urine Protein (Negative) mg/dL Negative Urine Ketones (Negative) mg/dL Trace H Urine Blood (Negative) Negative Urine Nitrite (Negative) Urine Bilirubin (Negative) Negative Urine Urobilinogen (Up TO 0.2) EU/dL 1.0 H Ur Leukocyte Esterase (Negative) Negative Urine Glucose (Negative) mg/dL Negative ECG Data Attestation: I personally reviewed and interpreted this ECG (s) as follows: Interpretation: Rate of 85, sinus, no acute ST elevation or depression. NC 150. QTc 435 per QRS 102. HPI General Mode of arrival: EMS. Date/Time Provider Initiated Documentation: 11/05/19 14:38. Limitations to Documentation: no limitations. Information obtained by: patient. HPI Narrative: Patient is a 74-year-old male with a history of CHF, pulmonary fibrosis, hypertension, hyperlipidemia who is 3 weeks status post left hip replacement and presents with shortness of breath and bilateral foot pain. Patient states he has had ongoing bilateral foot pain for which he had recent x-rays. He states he has chronic shortness of breath but states this is worse today. EMS notes that oxygen saturation were in the 80s on room air and increased to high 90s on 2 L. Patient also has had left lower extremity edema for which she had a recent Doppler ultrasound which was negative for DVT. Patient does admit to a cough but denies any purulent sputum. He denies any fever or chest pain. Related Data Home Medications Medication Instructions Recorded Confirmed ascorbic acid (vitamin C) 500 mg PO DAILY 01/02/13 11/05/19 hydroxychloroquine 200 mg PO BID 01/02/13 11/05/19 lisinopril 40 mg PO DAILY tab-cap 01/02/13 11/05/19 multivitamin [Daily Vitamin] 1 ea PO DAILY 01/02/13 11/05/19 nifedipine 30 mg PO DAILY #30 tab-cap 09/28/16 11/05/19 sildenafil (pulm.hypertension) 40 mg PO PRN #30 tab 11/10/16 11/05/19 diclofenac sodium [Voltaren] 100 gm TOPICAL DAILY script 07/02/17 11/05/19 omeprazole 40 mg PO DAILY #1 tab-cap 07/02/17 11/05/19 levothyroxine 112 mcg tablet 112 mcg PO DAILY #90 tab 03/16/19 11/05/19 baclofen 10 mg tablet 5 mg PO QID PRN #180 tab 04/04/19 11/05/19 methotrexate sodium 2.5 mg tablets 15 mg PO once a week dose pk 04/21/19 11/05/19 in a dose pack tocilizumab 162 mg/0.9 mL 162 mg SUBCUT QWEEK ml 04/21/19 11/05/19 subcutaneous syringe pramipexole 0.5 mg tablet 0.5 mg PO HS #90 tab-cap 10/09/19 11/05/19 acetaminophen [Mapap Extra 1,000 mg PO Q8H PRN #0 tab 10/12/19 11/05/19 Strength] aspirin 81 mg PO DAILY #29 tab 10/12/19 11/05/19 prednisone 10 mg tablet 10 mg PO DAILY #5 tab 10/24/19 11/05/19 furosemide 40 mg tablet 40 mg PO DAILY #14 tab 10/25/19 11/05/19 albuterol sulfate 90 mcg/actuation 2 puff IH Q6H PRN #18 gm 10/27/19 11/05/19 aerosol inhaler Previous Rx's Medication Instructions Recorded omeprazole 40 mg PO DAILY #1 tab-cap 07/02/17 levothyroxine 112 mcg tablet 112 mcg PO DAILY #90 tab 03/16/19 baclofen 10 mg tablet 5 mg PO QID PRN #180 tab 04/04/19 pramipexole 0.5 mg tablet 0.5 mg PO HS #90 tab-cap 10/09/19 acetaminophen [Mapap Extra 1,000 mg PO Q8H PRN #0 tab 10/12/19 Strength] aspirin 81 mg PO DAILY #29 tab 10/12/19 prednisone 10 mg tablet 10 mg PO DAILY #5 tab 10/24/19 furosemide 40 mg tablet 40 mg PO DAILY #14 tab 10/25/19 albuterol sulfate 90 mcg/actuation 2 puff IH Q6H PRN #18 gm 10/27/19 aerosol inhaler Allergies Allergy/AdvReac Type Severity Reaction Status Date / Time azathioprine Allergy Unknown unknown Verified 11/05/19 14:40 morphine AdvReac Other (See Unverified 11/05/19 14:40 Comment) General Stated Complaint: SOB JAMI: 2 Review of Systems All systems reviewed & are unremarkable except as noted in HPI and below Constitutional Constitutional: Reports as per HPI, Denies chills and Denies fever(s) Eyes Eyes: Denies blurry vision ENT Ears, Nose, Mouth, and Throat: Denies dizziness, Denies sore throat and Denies throat swelling Cardiovascular Cardiovascular: Denies chest pain and Reports dyspnea Respiratory Respiratory: Reports cough and Reports dyspnea Gastrointestinal Gastrointestinal: Denies abdominal pain, Denies diarrhea and Denies vomiting Genitourinary Genitourinary: Denies hematuria and Denies dysuria Musculoskeletal Musculoskeletal: Denies back pain and Denies numbness Integumentary/Breasts Skin/Breast: Denies lesions and Denies rash Neurologic Neurologic: Denies dizziness, Denies focal weakness and Denies numbness Allergic/Immunologic Allergic/Immunologic: Denies throat swelling [facility] Medical History (Updated 11/05/19 @ 17:44 by Neda Iraheta DO) Closed left femoral fracture (Acute 10/10/19) S/P short trochanteric femoral nail Dr. Lizarraga Congestive heart failure (CHF) (Chronic) per records received from [facility]; 2011 [facility]CHO [facility] shows EF 60%, mild diastolic dysfunction, ? 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 [employer] Current gender identity: male What type of physical activity do you participate in: walking and additional Details: pt is very active, walks paths on property daily, 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 Seatbelt use: always Drive intox or ride w/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: No Do you feel safe at home: Yes Do you feel safe in your relationship?: Yes Exam Const General: cooperative, no acute distress and ill appearing chronically Orientation: alert, awake and oriented x3 HENMT Head: normal to inspection Face and sinus: normal facial exam Eyes General: appearance normal, both eyes and all related structures EOM: EOM intact bilaterally Neck Neck: normal visual inspection and No submandibular swelling Lymphatic: no lymphadenopathy noted Chest Chest: normal inspection of the chest and no tenderness Resp Effort & Inspection: normal respiratory effort and not able to speak in complete sentences Auscultation: clear to auscultation bilaterally, crackles on the right at the base and diminished lung sounds on the left in the lower lung dawkins Cardio Rate: regular rate Rhythm: regular rhythm GI Inspection: normal to inspection Palpation: soft, not firm, not rigid and nontender Auscultation: normal bowel sounds Skin General skin exam: no rashes or lesions noted Neuro General: alert, awake and oriented x3 Cognition: normal cognition Speech: speech normal Motor: muscle tone normal throughout Sensory Exam: no sensory deficits noted Extrem Other: Healing ecchymosis left distal lower leg. Bilateral pitting edema, 1+ right leg, 2+ left leg. Bilateral lower leg distal pulses intact. Left hip incisional wound healing well without signs of infection. Psych Appearance: grossly normal Mental Status: mental status grossly normal Speech and Movement: speech and movement normal Affect: normal affect Course Vital Signs Vital signs: Vital Signs Temperature 97.7 F 11/05/19 14:34 Pulse 86 11/05/19 14:34 Respiratory Rate 23 11/05/19 14:34 Blood Pressure 112/53 L 11/05/19 14:34 Pulse Oximetry 98 11/05/19 14:34 Temperature 97.7 F 11/05/19 14:34 Temperature Source Skin 11/05/19 14:34 Pulse 86 11/05/19 14:34 Respiratory Rate 23 11/05/19 14:34 Respiratory Effort Labored 11/05/19 14:34 Blood Pressure 112/53 L 11/05/19 14:34 Blood Pressure Position Supine 11/05/19 14:34 Pulse Oximetry 98 11/05/19 14:34 Oxygen Delivery Method Nasal Cannula 11/05/19 14:34 Oxygen Flow Rate 2 11/05/19 14:34 Pain Level 7 11/05/19 14:34 Comment 11/05/19 14:34
[2019-11-05 15:20] LABS: Abs Immature Grans 0.01 k/cumm (0.0-0.09); Absolute Basophil Count 0.01 k/cumm (0.0-0.2); Absolute Eosinophil Count 0.15 k/cumm (0.0-0.7); Absolute Lymphocyte Count 0.48 k/cumm (1.2-3.4); Absolute Monocyte Count 0.48 k/cumm (0.11-0.7); Absolute Neutrophil Count 4.86 k/cumm (1.2-6.7); Basophils % 0.2; Eosinophils % 2.5; HGB 11.4 g/dL (13.5-17.5); Immature Grans % 0.2 %; Mean Corp. HGB Concentration 32.6 g/dL (32.0-36.0); Mean Corpuscular Hemoglobin 31.2 pg (27.0-33.0); Mean Corpuscular Volume 95.9 fL (80-95); Neutrophils % 81.1; Platelet Count 399 x1000/uL (130-400); RBC 3.65 m/cumm (4.50-6.00); RBC Distribution Width 15.4 % (11.8-14.1); White Blood Cell Count 5.99 k/cumm (4.4-10.8)
[2019-11-05] MEDS: Albuterol 2.5 MG/3 ML INH SOLN VIAL (15:25)
[2019-11-05 15:32] LABS: ALT 46 U/L (16-63); AST 113 U/L (15-37); Albumin 2.9 g/dL (3.4-5.0); Alkaline Phosphatase 136 U/L (46-116); Anion Gap 10.2 mmol/L (3-11); BUN 70 mg/dL (7-18); Bilirubin, Total 0.5 mg/dL (0.2-1.0); CO2 26.8 mmol/L (21.0-32.0); CREATININE 1.83 mg/dL (0.70-1.30); Calcium 8.8 mg/dL (8.5-10.1); Chloride 103 mmol/L (98-107); Estimated GFR 36.47 (mL/min/1.73m2); Glucose 89 mg/dL (74-106); Potassium 4.9 mmol/L (3.5-5.1); Sodium 140 mmol/L (136-145); Total Protein 7.5 g/dL (6.4-8.2)
[2019-11-05 15:38] LABS: Magnesium 2.4 mg/dL (1.8-2.4); NT-proBNP 544 pg/mL (<300); Troponin I < 0.05 ng/Ml (<0.06)
[2019-11-05 15:39] LABS: Bilirubin Negative (Negative); Blood Negative (Negative); Clarity Clear (Clear); Glucose Negative (Negative); Ketones Trace mg/dL (Negative); Leukocyte Esterase Negative (Negative)
--- NOTE | 2019-11-05 16:20 | DI.RAD_ITS ---
EXAM: XR CHEST 2V PA LATERAL CLINICAL HISTORY: sob, h/o chf/ r/o chf/pneumonia TECHNIQUE: 2D digital imaging was performed. COMPARISON: XR CHEST 1V IN DI DEPT from 10/09/2019 FINDINGS: MEDIASTINUM: Mediastinum is enlarged consistent with the patient's thoracic adenopathy. HEART: Normal. PULMONARY VASCULATURE: Prominence of the pulmonary vasculature. LUNGS: Increased interstitial markings throughout the lungs. Focal consolidation in the left lower l obe. Pulmonary fibrosis. PLEURAL SPACE: Moderately large left pleural effusion. BONE:Degenerative changes. OTHER FINDINGS:Normal. IMPRESSION: 1. Opacity in the left lower lobe which may represent atelectasis or pneumonia. 2. Moderately large left pleural effusion. 3. Increased interstitial markings in the lungs which may represent interstitial edema. 4. Pulmonary fibrosis. DATA REPOSITORY: RADIATION DOSE DELIVERED:
--- NOTE | 2019-11-05 16:57 | DI.VRAD_ITS ---
PROCEDURE INFORMATION: Exam: XR Chest, 2 Views Exam date and time: 11/05/2019 4:20 PM Age: 74 years old Clinical indication: Other: SOB, h/o chf/ R/O chf/pneumonia TECHNIQUE: Imaging protocol: XR of the chest Views: 2 views. COMPARISON: XR CHEST 1V IN DI DEPT 10/09/2019 4:56 PM FINDINGS: Diffuse interstitial lung scarring. Increased density at the right lung base as compared to the prior study suggesting a possible area of superimposed pneumonia and or atelectasis. Moderate cardiomegaly. Development of a small left pleural effusion. Overall the interstitial markings are slightly increased and the possibility of some superimposed interstitial edema could not entirely be excluded. Further clinical correlation is needed. IMPRESSION: Underlying interstitial lung scarring with an overall increase in interstitial markings and consolidation at the right lung base. The possibility of pneumonia or focal edema at the right lung base could not be excluded as well as the presence of interstitial edema secondary to congestive heart failure particularly with the new small left pleural effusion present. Dictated and Authenticated by: Arvind Mccray MD. Ordering:CAMDEN Red MD
[2019-11-05] MEDS: Furosemide 40 MG/4 ML VIAL IVP (17:21)
[2019-11-05] MEDS: Normal Saline Flush 10 ML SYR IVP ×2 (17:22→20:53)
[2019-11-05] MEDS: methylPREDNISolone SUCC 125 MG VIAL IVP (17:27)
[2019-11-05 17:47] LABS: Lactate 1.7 mmol/L (0.6-1.4)
[2019-11-05] MEDS: Albuterol/Ipratropium 3 ML UPD VIAL UPD ×2 (17:54→20:55)
[2019-11-05 18:20] LABS: Procalcitonin 0.1 ng/mL
--- NOTE | 2019-11-05 18:56 | W.PM.HP.N ---
Date of service: 11/05/19 Time of Service: 18:56 Assessment and Plan Assessment and plan (1) Left lower lobe pneumonia: Status: Acute Assessment and plan: We will treat the patient with IV vancomycin and high-dose penicillin G for his left lower extremity cellulitis. I have added Levaquin to improve coverage of respiratory pathogens including Enterobacteriaceae given his history of chronic lung disease. Patient be treated with IV corticosteroids along with aerosolized bronchodilators and supplemental oxygen and pulmonary toiletry. Qualifiers: Pneumonia type: due to unspecified organism Qualified Code(s): J18.9 - Pneumonia, unspecified organism (2) Cellulitis of left lower leg: Status: Acute Assessment and plan: Patient will undergo CT scan of his left lower extremity without contrast tonight to rule out a necrotizing fasciitis. Will consult with his orthopedic surgeon Dr. LizarragaPatient will be treated with IV clindamycin and vancomycin and high-dose penicillin G for coverage of both staph aureus as well as Streptococcus (3) Acute kidney injury (nontraumatic): Status: Acute Assessment and plan: Will withhold his Lasix at this time as there is no evidence for acute volume overload. In fact his BUN and creatinine suggest otherwise that he has prerenal azotemia. His IVC shows greater than 50% respirophasic change suggestive of volume responsiveness. I will treated with IV fluids and repeat his BMP in the morning. 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 If his infiltrates do not respond to antibiotics then further work-up would be justified including fiberoptic bronchoscopy to see if he has cryptic organizing pneumonia or another interstitial lung process either from his worsening of his rheumatoid lung or even a neoplasm. 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 He was admitted here at [facility] and on admission had been complaining of increasing cough and dyspnea for the last few weeks. Chest x-ray preoperatively demonstrated known pulmonary fibrosis with worsening infiltrate in the left lower lobe area. Patient was empirically treated for community-acquired pneumonia with ceftriaxone and doxycycline. He was treated as an inpatient for 3 days of parenteral antibiotics and discharged home on 2 days of doxycycline. Since discharge she is followed up with Dr. Flanagan his primary care provider in 2019 at that time had increased coughing and wheezing and dyspnea along with increased edema in his left leg and bruising over his left lower leg. Left lower leg was tender to palpation. Dr. Flanagan was concern for possible DVT and ordered a venous duplex scan was performed on 2019 and was negative for DVT. Patient was subsequent seen by Dr. Lizarraga his orthopedic surgeon on October 25, 2019 and was prescribed Lasix 40 mg daily for 14 days and told to follow-up with his primary care provider. Dr. Carmona here in the meantime had prescribed prednisone 10 mg daily along with continued use of the patient's bronchodilator. In spite of this his dyspnea has gotten progressively worse to the point he cannot ambulate with his walker from the living room to the bathroom which is about 50 feet. Prior to surgery he says he was walking up to a quarter a mile per day. Despite the patient's known pulmonary fibrosis he is not required home oxygen. He denies any fever or rigors or night sweats and his cough is been nonproductive. As far as any weight loss he thinks he is lost a few pounds since his surgery due to decreased appetite. In the emergency room he was found to be mildly hypoxemic with an oxygen saturation as low as 88%. Although Dr. Iraheta documented that EMS who responded to the patient's call found his oxygen saturation in the 80s but promptly came up into the high 90s on 2 L/min per nasal cannula. Work-up in the emergency department included a PA lateral chest x-ray which was read by the radiologist as showing diffuse interstitial lung scarring and increased density at the right lung base as compared to prior study suggesting a possible area of superimposed pneumonia and/or atelectasis as well as moderate cardiomegaly and development of small left pleural effusion. Possibility pneumonia or focal edema in the right lung base could not be excluded as well as the presence of interstitial edema secondary to congestive heart failure was suggested by the radiologist. Laboratory work-up included a CMP that showed acute kidney injury with an elevated BUN of 70 creatinine 1.83 compared to his baseline of BUN of 17 creatinine 0.96 on October 09, 2019. His blood lactate was elevated at 1.7. LFTs were slightly elevated with an alkaline phosphatase of 136 AST of 113 with a normal total bilirubin 0.5. His C-reactive protein is elevated 4.52 and his proBNP is elevated at 544. Procalcitonin level was normal at 0.1. CBC failed to demonstrate a leukocytosis with a white count of 5900. He has a stable chronic mild anemia with a hemoglobin 11.4 g hematocrit 35%. His ESR is elevated at 95. Blood cultures were obtained in the emergency department although antibiotics have not been yet started. He was given a DuoNeb treatment as well as 40 mg of Lasix IV and Solu-Medrol 125 mg IV. Since arrival to the floor has been complaining of exquisite pain in the left lower leg over the mata down to the ankle. The skin is erythematous and there is bruising of his left foot. Skin is warm to the touch. I have since ordered repeat blood cultures and ordered empiric antibiotics for cellulitis of his left leg. I did a [id number] ultrasound of his left leg and ruled out a DVT in his left leg. All the deep veins in his left leg were compressible from the popliteal vein up to the left common femoral vein including the greater saphenous vein and deep femoral vein. However the soft tissue over the left lower leg from the ankle to just below the patella shows significant soft tissue edema consistent with cellulitis. Because the skin was so tender to the touch I could not do compression study of the soft tissue over the left tibia. I did not see any air bubbles. I have ordered a CT scan of his left lower extremity to be done stat to rule out necrotizing fasciitis. [id number] ultrasound was done of his lungs. His right upper middle and right lower lung zones have diffuse B-lines pattern which be consistent with his diagnosis of pulmonary fibrosis although interstitial edema cannot be excluded on this exam. Examination of his left lung reveals B-lines pattern in the upper lung field with the left lower lung showing consolidation and pleural effusion consistent with pneumonia. Furthermore an air bronchogram was demonstrated in the left lower lung field. Jsyho-dt-[id number] echocardiography was performed and demonstrated grossly normal left ventricular and right ventricular function with what appears to be LVH although exact measurements were not taken of the left ventricular wall and therefore diagnosis of LVH cannot be made on [id number]-[id number]-[id number] ultrasound although grossly the left ventricle appeared to be hypertrophied. The IVC demonstrates greater than 50% respirophasic change suggestive of volume responsiveness. Review of Systems All systems reviewed & are unremarkable except as noted in HPI and below PFSH Medical History (Updated 11/06/19 @ 17:35 by Neisha Marques, ) Closed left femoral fracture (Acute 10/10/19) S/P short trochanteric femoral nail Dr. Lizarraga Congestive heart failure (CHF) (Chronic) per records received from [facility]; 2011 [facility] shows EF 60%, mild diastolic dysfunction, ? more recent [facility] Essential hypertension (Chronic) Gait disturbance (Acute 04/03/16) post cervical spine surgery; yearly F/U with Eben Loja M.D., LAKEISHA Burton, Physical Medicine, @[facility]. 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/11) chronic hoarseness Surgical History (Updated 11/05/19 @ 22:16 by Cameron Valverde) Colonoscopy - [facility] (04/29/15) Dr.Annick Olivier EGD - [facility] (11/23/16) S/P cervical spinal fusion (Acute) Patient reports 3 separate cervical spinal surgeries beginning in 1983 and the last one occurring in 2008 Family History Mother Heart disease Social History Smoking/Tobacco Use Status: Former Tobacco Use Alcohol Intake: never Drug use: Never Substance use type: does not use Household members: none Communication Needs: Corrective Lenses 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 [employer] Current gender identity: male What type of physical activity do you participate in: walking and additional Details: pt is very active, walks paths on property daily, 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 Seatbelt use: always Drive intox or ride w/intox drivers license examiner: No Do you feel safe at home: Yes Do you feel safe in your relationship?: Yes Meds Home Medications and Allergies Home Medications Medication Instructions Recorded Confirmed Type ascorbic acid (vitamin C) 500 mg PO DAILY 01/02/13 11/05/19 History hydroxychloroquine 200 mg PO BID 01/02/13 11/05/19 History lisinopril 40 mg PO DAILY tab-cap 01/02/13 11/05/19 History multivitamin [Daily Vitamin] 1 ea PO DAILY 01/02/13 11/05/19 History nifedipine 30 mg PO DAILY #30 tab-cap 09/28/16 11/05/19 History sildenafil (pulm.hypertension) 40 mg PO PRN #30 tab 11/10/16 11/05/19 History diclofenac sodium [Voltaren] 100 gm TOPICAL DAILY script 07/02/17 11/05/19 History omeprazole 40 mg PO DAILY #1 tab-cap 07/02/17 11/05/19 Rx levothyroxine 112 mcg tablet 112 mcg PO DAILY #90 tab 03/16/19 11/05/19 Rx baclofen 10 mg tablet 5 mg PO QID PRN #180 tab 04/04/19 11/05/19 Rx methotrexate sodium 2.5 mg tablets 15 mg PO once a week dose pk 04/21/19 11/05/19 History in a dose pack tocilizumab 162 mg/0.9 mL 162 mg SUBCUT QWEEK ml 04/21/19 11/05/19 History subcutaneous syringe pramipexole 0.5 mg tablet 0.5 mg PO HS #90 tab-cap 10/09/19 11/05/19 Rx acetaminophen [Mapap Extra 1,000 mg PO Q8H PRN #0 tab 10/12/19 11/05/19 Rx Strength] aspirin 81 mg PO DAILY #29 tab 10/12/19 11/05/19 Rx prednisone 10 mg tablet 10 mg PO DAILY #5 tab 10/24/19 11/05/19 Rx furosemide 40 mg tablet 40 mg PO DAILY #14 tab 10/25/19 11/05/19 Rx albuterol sulfate 90 mcg/actuation 2 puff IH Q6H PRN #18 gm 10/27/19 11/05/19 Rx aerosol inhaler Allergies Allergy/AdvReac Type Severity Reaction Status Date / Time azathioprine Allergy Unknown unknown Verified 11/05/19 14:40 morphine AdvReac Other (See Unverified 11/05/19 14:40 Comment) Exam Narrative Exam Narrative: Elderly male lying in bed in semi-recumbent position in moderate distress secondary to exquisite pain in his left lower leg. Despite repositioning of his left leg he cannot get comfortable. He finally got some comfort after being given IV Dilaudid. Patient is alert and oriented person place time circumstance. Voice is hoarse and he speaks in a whisper. HEENT is unremarkable. Specifically TMs are intact no erythema or bulging no exudate. Nares is moist without exudate. Oropharynx is noninjected without exudate. He moves his palate and his tongue symmetrically. Neck is nontender with normal carotid pulses no bruits no JVD. Lungs reveal diffuse crackles on the right side and in the left upper lung field. However in the left lower lung field there is markedly diminished breath sounds. Over the suprasternal notch there is audible expiratory wheeze. Heart is regular without murmur rub or gallop. Abdomen soft and nontender no guarding no rebound tenderness no bruits. Lower extremities the right foot and ankle have arthritic changes and 1+ edema and normal pedal pulses with no cyanosis. There is no tenderness over the right tibia or right ankle or foot. Left lower extremity reveals deformity of his toes along with ecchymosis over the dorsum of his toes of his left foot and over the dorsum of his foot. There is a purplish erythema to his left pretibial surface and increased warmth to the touch. Skin is exquisitely tender to the touch. There is 2+ pitting edema over the left ankle and left pretibial surface. Pedal pulses over the left foot are diminished. They are present by Doppler. Left hip wound appears to be healing well with no opening or discharge or erythema. Neurologic exam is nonfocal no facial asymmetry no dysarthric speech full extraocular motions intact. Strength appears to be normal except I could not test strength in the left leg and foot due to severe pain Results Labs Result diagrams: 11/07/19 06:25 11/07/19 06:25 Labs: Laboratory Results - last 24 hr 11/05/19 11/05/19 11/05/19 15:11 15:11 15:11 WBC 5.99 RBC 3.65 L Hgb 11.4 L Hct 35.0 L MCV 95.9 H MCH 31.2 MCHC 32.6 RDW 15.4 H Plt Count 399 MPV 9.0 Immature Gran % 0.2 Neutrophils % 81.1 Lymphocytes % 8.0 Monocytes % 8.0 Eosinophils % 2.5 Basophils % 0.2 Absolute Neutrophils 4.86 Absolute Lymphocytes 0.48 L Absolute Monocytes 0.48 Absolute Eosinophils 0.15 Absolute Basophils 0.01 Sodium 140 Potassium 4.9 Chloride 103 Carbon Dioxide 26.8 Anion Gap 10.2 BUN 70 H Creatinine 1.83 H Estimated GFR/1.73 m2 36.47 Glucose 89 Lactate Calcium 8.8 Magnesium 2.4 Total Bilirubin 0.5 AST 113 H ALT 46 Alkaline Phosphatase 136 H Troponin I < 0.05 NT-Pro-B Natriuret Pep 544 H Total Protein 7.5 Albumin 2.9 L Procalcitonin Urine Color Urine Clarity Urine pH Ur Specific [place] Urine Protein Urine Ketones Urine Blood Urine Nitrite Urine Bilirubin Urine Urobilinogen Ur Leukocyte Esterase Urine Glucose 11/05/19 11/05/19 15:30 17:38 WBC RBC Hgb Hct MCV MCH MCHC RDW Plt Count MPV Immature Gran % Neutrophils % Lymphocytes % Monocytes % Eosinophils % Basophils % Absolute Neutrophils Absolute Lymphocytes Absolute Monocytes Absolute Eosinophils Absolute Basophils Sodium Potassium Chloride Carbon Dioxide Anion Gap BUN Creatinine Estimated GFR/1.73 m2 Glucose Lactate 1.7 H Calcium Magnesium Total Bilirubin AST ALT Alkaline Phosphatase Troponin I NT-Pro-B Natriuret Pep Total Protein Albumin Procalcitonin 0.1 Urine Color [place] Urine Clarity Clear Urine pH 5.0 Ur Specific [place] 1.020 Urine Protein Negative Urine Ketones Trace H Urine Blood Negative Urine Nitrite Urine Bilirubin Negative Urine Urobilinogen 1.0 H Ur Leukocyte Esterase Negative Urine Glucose Negative Last Vital Signs Temp 36.6 C 11/05/19 18:44 Pulse 88 11/05/19 18:44 Resp 17 11/05/19 18:44 BP 114/57 L 11/05/19 18:44 Pulse Ox 100 11/05/19 18:44
[2019-11-05 20:46] LABS: C-Reactive Protein 4.52 mg/dL (0.0-0.3)
[2019-11-05] MEDS: HYDROmorphone 2 MG/ML VIAL 1 MG IVP (20:52)
[2019-11-05] MEDS: Enoxaparin 30 MG/0.3 ML SYR SC (20:55)
[2019-11-05 21:30] LABS: ESR 95 mm/hr (1-20)
[2019-11-05] MEDS: Normal Saline 1,000 ML 150 ML IV (21:47)
[2019-11-05 22:03] LABS: Lactate 1.8 mmol/L (0.6-1.4)
[2019-11-05] MEDS: methylPREDNISolone SUCC 125 MG VIAL 80 MG IVP (22:03)
--- NOTE | 2019-11-05 23:39 | DI.VRAD_ITS ---
PROCEDURE INFORMATION: Exam: CT Left Lower Extremity Without Contrast; Lower Leg Exam date and time: 11/05/2019 9:30 PM Age: 74 years old Clinical indication: Swelling, leg or foot; Patient HX: Left lower leg pain and swelling TECHNIQUE: Imaging protocol: CT of the Left lower extremity without contrast was performed. Exam focused on the lower leg. Radiation optimization: All CT scans at this facility use at least one of these dose optimization techniques: automated exposure control; mA and/or kV adjustment per patient size (includes targeted exams where dose is matched to clinical indication); or iterative reconstruction. COMPARISON: BILATERAL EXTREMITY US ([id number]) 09/26/2015 10:07 AM FINDINGS: Bones/joints: Chondrocalcinosis of the knee. Degenerative changes of the foot. Soft tissues: Nonspecific edema or cellulitis of the distal lower extremity. Vasculature: Atherosclerotic calcifications. IMPRESSION: Nonspecific edema or cellulitis of the distal lower extremity. Dictated and Authenticated by: Star Elder MD. Ordering:[facility] Abram Barnes MD
[2019-11-06] VITALS (17 sets, daily range): BP systolic 94–100; BP diastolic 53–61; PULSE 68–87; RESP 2–26; TEMP 36.1–37; O2SAT 89–100
[2019-11-06] MEDS: levoFLOXacin 750 MG/150 ML BAG 100 MG IVPB (00:13)
[2019-11-06] MEDS: VANCOMYCIN 1,500 MG in Normal Saline 250 ML 166.667 MG IV (00:49)
[2019-11-06] MEDS: Pramipexole 0.5 MG TAB PO ×2 (00:49→21:49)
[2019-11-06] MEDS: Normal Saline Flush 10 ML SYR IVP (00:50)
[2019-11-06] MEDS: Benzonatate 200 MG CAP PO ×4 (01:16→20:33)
[2019-11-06] MEDS: Albuterol/Ipratropium 3 ML UPD VIAL UPD ×5 (01:25→23:19)
[2019-11-06] MEDS: HYDROmorphone 2 MG/ML VIAL IVP ×2 (01:49→09:22)
[2019-11-06] MEDS: Normal Saline 1,000 ML 150 ML IV (05:28)
[2019-11-06] MEDS: CLINDAMYCIN 900 MG/50 ML BAG 50 MG IVPB ×5 (06:26→23:19)
[2019-11-06] MEDS: methylPREDNISolone SUCC 125 MG VIAL 80 MG IVP ×3 (06:26→21:49)
[2019-11-06 06:34] LABS: Lactate 1.9 mmol/L (0.6-1.4)
[2019-11-06 06:41] LABS: Abs Immature Grans 0.01 k/cumm (0.0-0.09); Absolute Lymphocyte Count 0.07 k/cumm (1.2-3.4); Absolute Monocyte Count 0.04 k/cumm (0.11-0.7); Absolute Neutrophil Count 4.04 k/cumm (1.2-6.7); HCT 32.3 % (40.0-50.0); Immature Grans % 0.2 %; Lymphocytes % 1.7; Mean Corpuscular Hemoglobin 30.2 pg (27.0-33.0); Mean Corpuscular Volume 97.6 fL (80-95); Neutrophils % 97.1; Platelet Count 338 x1000/uL (130-400); RBC 3.31 m/cumm (4.50-6.00); RBC Distribution Width 15.4 % (11.8-14.1); White Blood Cell Count 4.16 k/cumm (4.4-10.8)
[2019-11-06 07:09] LABS: Anion Gap 8.2 mmol/L (3-11); BUN 65 mg/dL (7-18); CO2 26.8 mmol/L (21.0-32.0); CREATININE 1.68 mg/dL (0.70-1.30); Calcium 7.8 mg/dL (8.5-10.1); Chloride 105 mmol/L (98-107); Estimated GFR 40.25 (mL/min/1.73m2); Glucose 160 mg/dL (74-106); Magnesium 2.2 mg/dL (1.8-2.4); Potassium 5.3 mmol/L (3.5-5.1); Sodium 140 mmol/L (136-145); TSH (W/Ref FT4) 0.52 uIU/mL (0.36-3.74)
--- NOTE | 2019-11-06 08:18 | INITIAL_ITS ---
- If Service Date Differs Date of service: 11/06/19 Time of Service: 08:18 Care Management Initial Assess REASON FOR HOSPITALIZATION:: LLL Pneumonia PAST MEDICAL HISTORY/PAST SURGICAL HISTORY:: Medical History : closed left femoral fracture (Acute 10/10/19). S/P short trochanteric femoral nail. Congestive heart failure (CHF) (Chronic). [facility] EF [facility]%, mild diastolic dysfunction, ? more recent [facility]. Essential hypertension (Chronic). Gait disturbance (Acute 04/03/16). post cervical spine surgery; yearly F/U with Eben Loja M.D., LAKEISHA Burton, Physical Medicine, @[facility]. Gastroesophageal reflux disease (Chronic 09/09/11). Hiatal hernia (Chronic 11/23/16). endoscopy with Dr Olivier. Hypertension (Chronic 05/30/79). DX WHEN APPLIED TO WORK; TREATED SINCE THEN. Unilateral partial vocal cord paralysis (Chronic 09/09/11). chronic hoarseness. Surgical History (Updated 11/05/19 @ 22:16 by Cameron Valverde). Colonoscopy - [facility] (04/29/15). Dr.Annick Olivier. EGD - [facility] (11/23/16). S/P cervical spinal fusion (Acute). Patient reports 3 separate cervical spinal surgeries beginning in 1983 and the last one occu PREVIOUS FUNCTIONAL STATUS/SOCIAL/FAMILY SUPPORTS:: Hernandez lives alone in a mobile home in [place] His closest relative is a niece, Rosemary Jones who lives in [place], [place]. Hernandez has no children but was once about 30 years ago. 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 Hernandez uses a cane as an ambulatory assistive device. Hernandez is independent at baseline, continues to drive and helps his neighbors with snow plowing etc. Hernandez states that has very good friends and neighbors that are willing to help with whatever he needs. CURRENT FUNCTIONAL STATUS:: Hernandez was sitting up in bed when CM met with him. He stated that he is tired and his breathing is visibly labored. Hernandez stated that he had been doing well at home until this weekend when his LLE suddenly became more swollen and painful. He stated that home health had suggested he go see the doctor on Wednesday of last week but Hernandez felt that he could wait until his scheduled appointment on 11/08/19. ADVANCE DIRECTIVES:: None on file Has patient been provided with information about the portal?: No Did the patient sign up for the portal?: No (not interested) CODE STATUS:: Full Code INSURANCE COVERAGE / FINANCIAL ISSUES:: BC BS CURRENT HOME/COMMUNITY SERVICES/EQUIPMENT:: cane and home health nursing and PT PRIMARY CARE PHYSICIAN:: Simone Flanagan POTENTIAL DISCHARGE NEEDS:: Follow up with PCP and discharge plan of care PATIENT/FAMILY EDUCATION NEEDS:: Discharge plan, limitations, follow up plan, Ask Me Three. TRANSPORTATION:: via private vehicle with friends PLAN:: Hernandez will be discharged home with a resumption of home health nursing and PT. He will follow up with his providers and discharge plan of care. CM will continue to support patient, family and discharge planning needs. Readmission - Within the Past 30 Days Yes or No: Y - Date of First Admission Date of 1st Admission: 10/09/19 - Date of this Admission Date of Admission: 11/05/19 - Office Visit Since 1st Admission Have you seen your PCP in the office since discharge?: No Had an appointment Been Scheduled?: Yes Date of Scheduled Appointment: 11/08/2019 - I. Interview patient and/or Family Difficulty reaching your doctor or getting an office appt?: No Have you had trouble purchasing/ or taking medication?: No Have you had trouble with getting meals at home?: No Did you feel ready for discharge when you left the last time: Yes Were services received that you thought were set up on disch: Yes Did you call your physician beore you came to the ED?: No (it was a weekend) Did your physician tell you to come in?: No How do you think you became sick enough to come back?: leg became more swollen and painful - If the patient had a VNA ordered Did the patient have a VNA order?: Yes Did you call the VNA before you came?: No (weekend) Did the VNA tell you to come to the hospital?: Yes (recommeded he go on 10/31/19) Do you know if the VNA called your physician?: No - If the patient had home care service Call them to discuss the patient's admission: Home health nurse noted patient's lower extremity was more swollen and red last Wednesday and recommended he seek medical care with his MD or the ED - Ask the Care Team Members: What do you think caused the patient to be readmitted: developed cellulitis and pneumonia - ED visits How many ED visits in the past 12 months: 2 - Assessment for Readmission Summary of readmission circumstances, based upon interviews: Hernandez fractured his left hip in September and had a repair at [facility]. He continued to have some swelling at home, but over the weekend, it blew up according to Hernandez and became very painful.
--- NOTE | 2019-11-06 08:48 | DI.CT_ITS ---
EXAM: CT CHEST HIGH RESOLUTION CLINICAL HISTORY: dyspnea, hx of ILD. TECHNIQUE: Imaging protocol: Axial computed tomography images were obtained and coronal and sagittal reformatted images were created and reviewed. COMPARISON: ABD PELVIS WITH CONTRAST from 11/13/2015 FINDINGS: Patient motion artifact Tracheobronchial tree: There is narrowing of the right mainstem bronchus and the bronchi heading to t he left lower lobe and left lingula. Mediastinum and Katia: There is extensive thoracic adenopathy present. There is supraclavicular adeno denise. The largest lymph node measures 1.8 x 2.3 cm. There is extensive mediastinal adenopathy and hilar. The largest pretracheal lymph node measures 2.9 x 3.5 cm. Extensive hilar adenopathy is pres ent. The findings are difficult to evaluate due to the lack of IV contrast. Left hilar mass is pres ent. This may represent adenopathy or a central mass. The area measures 8.3 x 6.9 cm. Pulmonary parenchyma: There is consolidation of the left lower lobe. This may be postobstructive. A central pulmonary mass cannot be excluded. There is extensive pulmonary fibrosis. Bronchiectatic c hanges are seen in the right upper lobe. No focal consolidating infiltrates are seen in the right edward ng. Pleura: There is a small to moderate size left pleural effusion. No right pleural effusion is presen t. Heart: The heart is not dilated. No pericardial effusion is present. Moderate coronary artery calcif ication is present. Aorta: 4.7 cm ascending thoracic aortic aneurysm. Upper abdomen: Unremarkable. Lymph nodes: Please see above. Bones:Degenerative changes. Old L1 compression fracture deformity. Cervicothoracic junction plate a nd screws appear Tubes, Catheters, and Lines: None IMPRESSION: 1. Extensive pulmonary fibrosis. 2. Marked thoracic adenopathy. Findings raise the question of metastatic disease or neoplasm such as lymphoma or leukemia. 3. Narrowing of the left mainstem bronchus with central soft tissue suspicious for thoracic adenopath y or central neoplasm. 4. Large consolidation involving the left lower lobe. Postobstructive atelectasis or pneumonia shoul d be considered. A central obstructing mass should be considered in this patient. 5. Small to moderate size left pleural effusion. DATA REPOSITORY: All CT scans at this facility are submitted to the National Radiology Data Registry (NRDR) Dose Index Registry (DIR) with the [employer] ([employer]). RADIATION OPTIMIZATION: All CT scans at this facility use at least one of these dose optimization te chniques: automated exposure control; mA and/or kV adjustment per patient size (includes targeted exa ms where dose is matched to clinical indication); or iterative reconstruction.
[2019-11-06] MEDS: Levothyroxine 112 MCG TAB PO (09:19)
[2019-11-06] MEDS: Aspirin 81 MG CHEW PO (09:19)
[2019-11-06] MEDS: Omeprazole 20 MG CAPCR 40 MG PO (09:20)
[2019-11-06] MEDS: Lactated Ringers 1,000 ML 125 ML IV ×2 (09:20→19:43)
[2019-11-06] MEDS: Multivitamin TAB 1 TAB PO (09:20)
--- NOTE | 2019-11-06 10:31 | PHA.ADMREV ---
Pharmacy Clinical Review - Admission Clinical Review (Last Updated 11/05/19 @ 22:16 by Cameron Valverde) DVT prophylaxis (Acute) Acute kidney injury (nontraumatic) (Acute) Cellulitis of left lower leg (Acute) Left lower lobe pneumonia (Acute) Hypoxia (Acute) History of pulmonary fibrosis (Acute) azathioprine Allergy (Unknown, Verified 11/05/19 14:40) unknown morphine Adverse Reaction (Unverified 11/05/19 14:40) Other (See Comment) Height 5 ft 6 in Weight 71.8 kg - Renal Dosing Renal Dosing: BUN 65 mg/dL (7-18) H 11/06/19 06:25 Creatinine 1.68 mg/dL (0.70-1.30) H 11/06/19 06:25 Medications needing adjustments: Intervened (Crcl ~35 mL/min baclofen and hydroxychloroquine- use with caution; may require dose reduction. Levoflocaxin and penicillin doses are reanally adjusted.) - Anticoagulation Anticoagulation: Hgb 10.0 g/dL (13.5-17.5) L 11/06/19 06:25 Hct 32.3 % (40.0-50.0) L 11/06/19 06:25 Plt Count 338 x1000/uL (130-400) 11/06/19 06:25 Creatinine 1.68 mg/dL (0.70-1.30) H 11/06/19 06:25 DVT Prohphylaxis: Reviewed Medications: Enoxaparin Therapeutic Anticoagulation: N/A - Opiate Usage Evaluate Pain Scale/Pains Meds: Reviewed Scheduled Bowel Reg ordered if on Opiates?: No (has PRN orders) - Relevant Labs ESR 95 mm/hr (1-20) H 11/05/19 15:11 Sodium 140 mmol/L (136-145) 11/06/19 06:25 Potassium 5.3 mmol/L (3.5-5.1) H 11/06/19 06:25 Chloride 105 mmol/L (98-107) 11/06/19 06:25 Magnesium 2.2 mg/dL (1.8-2.4) 11/06/19 06:25 C-Reactive Protein 4.52 mg/dL (0.0-0.3) H 11/05/19 15:11 Electrolytes, C-Reactive P, ESR: Reviewed (watch K+, pt currently on penicillin potassium. dose was decreased today due to renal function) - Antimicrobial Stewardship Antibiotic appropriateness: Reviewed (see H&P for more info on antibiotic choices) Surgical Abx d/c within 24 hr: N/A Culture review/Resistance: Reviewed (two sets of blood cultures pending) - DM Control DM Control: Glucose 160 mg/dL (74-106) H 11/06/19 06:25 Insulin Dosing: N/A (no med orders, no A1C on record) - Heart Failure/PA Heart Failure/PA: Troponin I < 0.05 ng/Ml (<0.06) 11/05/19 15:11 NT-Pro-B Natriuret Pep 544 pg/mL (<300) H 11/05/19 15:11 EF%, VINCENT's, B-Blockers, Diuretics: Reviewed (nifedipine) - BP Control BP Control: Blood Pressure 96/58 Blood Pressure 100/53 If elevated: N/A - QTc Review If Elevated: N/A (QTc 435) - IV to PO Switch IV Medications: N/A - Home Meds Home Med List reviewed: Reviewed (Separate admin of levothyroxine and multivitamin. Aspirin, diclofenac, and furosemide may increase the serum concentration of methotrexate. Methotrexate and diclofenac may diminish the therapeutic effect of furosemide. Furosemide may enhance the nephrotoxic effect of diclofenac) Relevent Home Meds Not ordered & why?: ascorbic acid, diclofenac, furosemide(on hold due to KIMMIE/no evidence of acute volume overload), lisinopril, methotrexate, prednisone (has methylprednisolone ordered), sildenafil (PRN), tociluzumab - Current meds Current Medication Order Review: Intervened (adjusted timing of duonebs and levothyroxine, calculated vanco dosing, fixed baclofen order so PRN in frequency and schedule) - Comments Comments/Follow Ups: watch potassium, medication renal adjustments if needed, for culture results, change of antibiotics/narrowing of therapy, restart of unordered home meds,
[2019-11-06] MEDS: NIFEdipine-CR 30 MG TABCR PO (10:34)
[2019-11-06] MEDS: Penicillin G POT. 3,000,000 UNITS in Normal Saline 50 ML 100 UNITS IVPB ×4 (11:44→23:42)
[2019-11-06 12:05] LABS: LDH 1475 U/L (85-227)
--- NOTE | 2019-11-06 12:38 | W.PM.PROGNOT ---
Date of Service Date of service: 11/06/19 Time of Service: 12:38 Assessment and Plan Assessment and plan (1) Left lower lobe pneumonia: Status: Acute Assessment and plan: Subjectively improving with regard to shortness of breath. Oxygenation adequate with supplemental O2. No cultures to guide treatment choice at this time. This might be a postobstructive pneumonia based on CT findings. Continue to follow clinically. If not improving, postobstructive pneumonia becomes more likely and may need urgent pulmonary intervention but at this point stable. Continue present antibiotic coverage with levofloxacin, vancomycin and clindamycin and penicillin for cellulitis more than lung. Continue parenteral steroids. Qualifiers: Pneumonia type: due to unspecified organism Qualified Code(s): J18.9 - Pneumonia, unspecified organism (2) Lymphadenopathy, hilar: Status: Acute Assessment and plan: Hilar, mediastinal and supraclavicular adenopathy raising concern for possible lymphoma, possible primary lung with metastases to lymph nodes. Consultation with general surgery as to whether or not lymph node biopsy can be done locally or if needs to be referred to interventional radiology. (3) Acute kidney injury (nontraumatic): Status: Acute Assessment and plan: Presumably prerenal from overdiuresis. IV hydration overnight has resulted in some improvement in his BUN and creatinine. Continue with IV hydration albeit at a slower rate. Recheck renal function labs tomorrow. (4) Cellulitis of left lower leg: Status: Acute Assessment and plan: Broad coverage for staph and strep, less pain. Still has inflammatory changes. Orthopedic consultation placed. It seems, with time, that compartment syndrome less likely a cause for his intense pain which has significantly abated. No change in management at this point. (5) History of pulmonary fibrosis: Status: Acute Assessment and plan: Chronic background pulmonary fibrosis question if due to rheumatoid arthritis or the treatment thereof with methotrexate toxicity also a possibility. Now with CT findings might also have primary or metastatic cancer to lung. Work-up as above. (6) Essential hypertension: Status: Chronic Assessment and plan: Blood pressures have been low but not symptomatic. Hold nifedipine and monitor blood pressure. (7) Rheumatoid arthritis without organ or system involvement with positive rheumatoid factor: Status: Chronic Assessment and plan: Patient reports that he is not had active disease for quite some time. With concern of infection and possible neoplasia, methotrexate, hydroxychloroquine and tocilizumab all on hold. Subjective Subjective Interval history since last seen: Mr. Vu is feeling better with regard to both his breathing and his leg. Does not feel short of breath. Leg pain substantially better although not gone. Occasional nonproductive cough. No nausea. No dysuria. CT scan done today shows, in addition to his extensive fibrosis, mediastinal, hilar and supraclavicular adenopathy, consolidated left lower lobe with possible postobstructive pneumonia versus mass and the incidental finding of a 4.7 cm ascending thoracic aortic aneurysm. This information was shared with the patient with concern raised of possible cancer. Exam Narrative Exam Narrative: Comfortable sitting in bed with oxygen on at 1.5 L/min. Temperature 36.4 blood pressure 96/58 SaO2 94%. He is a tropia of the right eye. Voice is hoarse/whisper which she reports as chronic. I cannot feel any cervical supraclavicular or axillary adenopathy. Lungs have extensive crackles in the right lung field with diminished breath sounds and dullness to percussion on the left. I do not hear any friction rub. Heart tones are a little soft no murmur S3 or S4 heard. No enlargement of the liver and no tenderness in the abdomen. Left hip incision intact clean and dry with no redness or tenderness. He has a little bit of discomfort on the inner aspect of the left thigh but no erythema no cord. No pain in the popliteal fossa. He has ecchymosis on the dorsum of his foot and patchy erythema of the left lower mata and foot with increased warmth, 2+ edema, mild to moderate tenderness to palpation. He does not have increased pain in the ankle with active plantarflexion or dorsiflexion although a sense of tightness. His right middle toe is slightly erythematous but nontender. Antigravity power present in all extremities. He sits up unassisted. Objective Objective Clinical Data: Abnormal lab results Some improvement in BUN and creatinine. CT findings as noted in HPI. Influenza negative. Blood cultures no growth thus far. Specimen sent for PCR respiratory pathogens 11/05/19 11/05/19 11/05/19 Range/Units 15:11 15:11 15:11 WBC (4.4-10.8) k/cumm RBC 3.65 L (4.50-6.00) m/cumm Hgb 11.4 L (13.5-17.5) g/dL Hct 35.0 L (40.0-50.0) % MCV 95.9 H (80-95) fL MCHC (32.0-36.0) g/dL RDW 15.4 H (11.8-14.1) % Absolute Lymphocytes 0.48 L (1.2-3.4) k/cumm Absolute Monocytes (0.11-0.7) k/cumm ESR (1-20) mm/hr Potassium (3.5-5.1) mmol/L BUN 70 H (7-18) mg/dL Creatinine 1.83 H (0.70-1.30) mg/dL Glucose (74-106) mg/dL Lactate (0.6-1.4) mmol/L Calcium (8.5-10.1) mg/dL AST 113 H (15-37) U/L Alkaline Phosphatase 136 H (46-116) U/L Lactate Dehydrogenase (85-227) U/L C-Reactive Protein (0.0-0.3) mg/dL NT-Pro-B Natriuret Pep 544 H (<300) pg/mL Albumin 2.9 L (3.4-5.0) g/dL Urine Ketones (Negative) mg/dL Urine Urobilinogen (Up TO 0.2) EU/dL 11/05/19 11/05/19 11/05/19 Range/Units 15:11 15:11 15:30 WBC (4.4-10.8) k/cumm RBC (4.50-6.00) m/cumm Hgb (13.5-17.5) g/dL Hct (40.0-50.0) % MCV (80-95) fL MCHC (32.0-36.0) g/dL RDW (11.8-14.1) % Absolute Lymphocytes (1.2-3.4) k/cumm Absolute Monocytes (0.11-0.7) k/cumm ESR 95 H (1-20) mm/hr Potassium (3.5-5.1) mmol/L BUN (7-18) mg/dL Creatinine (0.70-1.30) mg/dL Glucose (74-106) mg/dL Lactate (0.6-1.4) mmol/L Calcium (8.5-10.1) mg/dL AST (15-37) U/L Alkaline Phosphatase (46-116) U/L Lactate Dehydrogenase (85-227) U/L C-Reactive Protein 4.52 H (0.0-0.3) mg/dL NT-Pro-B Natriuret Pep (<300) pg/mL Albumin (3.4-5.0) g/dL Urine Ketones Trace H (Negative) mg/dL Urine Urobilinogen 1.0 H (Up TO 0.2) EU/dL 11/05/19 11/05/19 11/06/19 Range/Units 17:38 21:53 06:25 WBC (4.4-10.8) k/cumm RBC (4.50-6.00) m/cumm Hgb (13.5-17.5) g/dL Hct (40.0-50.0) % MCV (80-95) fL MCHC (32.0-36.0) g/dL RDW (11.8-14.1) % Absolute Lymphocytes (1.2-3.4) k/cumm Absolute Monocytes (0.11-0.7) k/cumm ESR (1-20) mm/hr Potassium 5.3 H (3.5-5.1) mmol/L BUN 65 H (7-18) mg/dL Creatinine 1.68 H (0.70-1.30) mg/dL Glucose 160 H (74-106) mg/dL Lactate 1.7 H 1.8 H (0.6-1.4) mmol/L Calcium 7.8 L (8.5-10.1) mg/dL AST (15-37) U/L Alkaline Phosphatase (46-116) U/L Lactate Dehydrogenase 1475 H (85-227) U/L C-Reactive Protein (0.0-0.3) mg/dL NT-Pro-B Natriuret Pep (<300) pg/mL Albumin (3.4-5.0) g/dL Urine Ketones (Negative) mg/dL Urine Urobilinogen (Up TO 0.2) EU/dL 11/06/19 11/06/19 Range/Units 06:25 06:25 WBC 4.16 L D (4.4-10.8) k/cumm RBC 3.31 L (4.50-6.00) m/cumm Hgb 10.0 L (13.5-17.5) g/dL Hct 32.3 L (40.0-50.0) % MCV 97.6 H (80-95) fL MCHC 31.0 L (32.0-36.0) g/dL RDW 15.4 H (11.8-14.1) % Absolute Lymphocytes 0.07 L (1.2-3.4) k/cumm Absolute Monocytes 0.04 L (0.11-0.7) k/cumm ESR (1-20) mm/hr Potassium (3.5-5.1) mmol/L BUN (7-18) mg/dL Creatinine (0.70-1.30) mg/dL Glucose (74-106) mg/dL Lactate 1.9 H (0.6-1.4) mmol/L Calcium (8.5-10.1) mg/dL AST (15-37) U/L Alkaline Phosphatase (46-116) U/L Lactate Dehydrogenase (85-227) U/L C-Reactive Protein (0.0-0.3) mg/dL NT-Pro-B Natriuret Pep (<300) pg/mL Albumin (3.4-5.0) g/dL Urine Ketones (Negative) mg/dL Urine Urobilinogen (Up TO 0.2) EU/dL Vital Signs Temperature 36.4 C L 11/06/19 07:45 Temperature Source Tympanic 11/06/19 07:45 Pulse 82 11/06/19 12:00 Pulse Rhythm Regular 11/06/19 08:45 Pulse 80 11/05/19 18:40 Respiratory Rate 24 11/06/19 12:00 Respiratory Effort Labored 11/06/19 08:45 Respiratory Depth Normal 11/06/19 08:45 Respiratory Pattern Tachypnea 11/06/19 08:45 Blood Pressure 96/58 L 11/06/19 07:45 Blood Pressure Mean 67 11/05/19 18:32 Blood Pressure Position Supine 11/05/19 14:34 Pulse Oximetry 94 L 11/06/19 12:00 Oxygen Delivery Method Nasal Cannula 11/06/19 11:48 Oxygen Flow Rate 1.5 11/06/19 11:48 Pain Level 6 11/06/19 07:45 Comment 11/05/19 14:34 Intake & Output 11/05/19 11/06/19 11/06/19 23:59 11:59 23:59 Intake Total 2149 Output Total 1400 / 1400 250 / 250 Balance -1400 / -1400 1899 Weight 71.8 kg Intake: IV 2149 Output: Urine 1400 / 1400 250 / 250 Other: Urine Color Mitchell Mitchell Urine Appearance Clear Clear Stool Size Small Stool Characteristics Soft Liquid Brown Laboratory Results WBC 4.16 k/cumm (4.4-10.8) L D 11/06/19 06:25 RBC 3.31 m/cumm (4.50-6.00) L 11/06/19 06:25 Hgb 10.0 g/dL (13.5-17.5) L 11/06/19 06:25 Hct 32.3 % (40.0-50.0) L 11/06/19 06:25 MCV 97.6 fL (80-95) H 11/06/19 06:25 MCH 30.2 pg (27.0-33.0) 11/06/19 06:25 MCHC 31.0 g/dL (32.0-36.0) L 11/06/19 06:25 RDW 15.4 % (11.8-14.1) H 11/06/19 06:25 Plt Count 338 x1000/uL (130-400) 11/06/19 06:25 MPV 9.0 fL (8.0-11.0) 11/06/19 06:25 Immature Gran % 0.2 % 11/06/19 06:25 Neutrophils % 97.1 11/06/19 06:25 Lymphocytes % 1.7 11/06/19 06:25 Monocytes % 1.0 11/06/19 06:25 Eosinophils % 0.0 11/06/19 06:25 Basophils % 0.0 11/06/19 06:25 Absolute Neutrophils 4.04 k/cumm (1.2-6.7) 11/06/19 06:25 Absolute Lymphocytes 0.07 k/cumm (1.2-3.4) L 11/06/19 06:25 Absolute Monocytes 0.04 k/cumm (0.11-0.7) L 11/06/19 06:25 Absolute Eosinophils 0.00 k/cumm (0.0-0.7) 11/06/19 06:25 Absolute Basophils 0.00 k/cumm (0.0-0.2) 11/06/19 06:25 ESR 95 mm/hr (1-20) H 11/05/19 15:11 Sodium 140 mmol/L (136-145) 11/06/19 06:25 Potassium 5.3 mmol/L (3.5-5.1) H 11/06/19 06:25 Chloride 105 mmol/L (98-107) 11/06/19 06:25 Carbon Dioxide 26.8 mmol/L (21.0-32.0) 11/06/19 06:25 Anion Gap 8.2 mmol/L (3-11) 11/06/19 06:25 BUN 65 mg/dL (7-18) H 11/06/19 06:25 Creatinine 1.68 mg/dL (0.70-1.30) H 11/06/19 06:25 Estimated GFR/1.73 m2 40.25 (mL/min/1.73m2) 11/06/19 06:25 Glucose 160 mg/dL (74-106) H 11/06/19 06:25 Lactate 1.9 mmol/L (0.6-1.4) H 11/06/19 06:25 Calcium 7.8 mg/dL (8.5-10.1) L 11/06/19 06:25 Magnesium 2.2 mg/dL (1.8-2.4) 11/06/19 06:25 Total Bilirubin 0.5 mg/dL (0.2-1.0) 11/05/19 15:11 AST 113 U/L (15-37) H 11/05/19 15:11 ALT 46 U/L (16-63) 11/05/19 15:11 Alkaline Phosphatase 136 U/L (46-116) H 11/05/19 15:11 Lactate Dehydrogenase 1475 U/L (85-227) H 11/06/19 06:25 Troponin I < 0.05 ng/Ml (<0.06) 11/05/19 15:11 C-Reactive Protein 4.52 mg/dL (0.0-0.3) H 11/05/19 15:11 NT-Pro-B Natriuret Pep 544 pg/mL (<300) H 11/05/19 15:11 Total Protein 7.5 g/dL (6.4-8.2) 11/05/19 15:11 Albumin 2.9 g/dL (3.4-5.0) L 11/05/19 15:11 Procalcitonin 0.1 ng/mL 11/05/19 17:38 TSH 0.52 uIU/mL (0.36-3.74) 11/06/19 06:25 Urine Color Mitchell (Yellow) 11/05/19 15:30 Urine Clarity Clear (Clear) 11/05/19 15:30 Urine pH 5.0 (5-8) 11/05/19 15:30 Ur Specific [place] 1.020 (1.005-1.025) 11/05/19 15:30 Urine Protein Negative mg/dL (Negative) 11/05/19 15:30 Urine Ketones Trace mg/dL (Negative) H 11/05/19 15:30 Urine Blood Negative (Negative) 11/05/19 15:30 Urine Nitrite (Negative) 11/05/19 15:30 Urine Bilirubin Negative (Negative) 11/05/19 15:30 Urine Urobilinogen 1.0 EU/dL (Up TO 0.2) H 11/05/19 15:30 Ur Leukocyte Esterase Negative (Negative) 11/05/19 15:30 Urine Glucose Negative mg/dL (Negative) 11/05/19 15:30
--- NOTE | 2019-11-06 14:20 | CHAPLAIN ---
Jake was sitting up in bed when I visited. He said he was tired and worn out from his respiratory issues. I explained my role and offered support.
--- NOTE | 2019-11-06 17:27 | SCONE_ITS ---
Date of service: 11/06/19 Time of Service: 17:27 Assessment and Plan Assessment and plan (1) Pulmonary fibrosis: Status: Acute (2) Lymphadenopathy, hilar: Status: Acute (3) Mucus plugging of bronchi: Status: Acute Assessment and plan: This is probably due to stricturing and mass on CT. cont steriods and abx Pt needs bronchoscopy and Bx of mass. Pt will need to go for CT Bx of mass at [facility] pulm toilet pt will need to go to IR at [facility] for BX cont medical care will re-eval at your request (4) Pleural effusion: Status: Acute History of Present Illness Narrative: pt admitted w/ increase in SOB. He is coughing quit a bit- but only dry cough. He has a hx of pulmonary fibrosis. He is on steriods and MTX at home. Also a immunomodudlator/ IL modulataor/DMARD. He is on steriods and abx at this point. He does not appear to be in any distress Ct chest reviewed. extensive adenopathy. also appears to have mucous plugging- needs expectoration vs bronch if not improving. CT: Tracheobronchial tree: There is narrowing of the right mainstem bronchus and the bronchi heading to the left lower lobe and left lingula. Mediastinum and Katia: There is extensive thoracic adenopathy present. There is supraclavicular adenopathy. The largest lymph node measures 1.8 x 2.3 cm. There is extensive mediastinal adenopathy and hilar. The largest pretracheal lymph node measures 2.9 x 3.5 cm. Extensive hilar adenopathy is present. The findings are difficult to evaluate due to the lack of IV contrast. Left hilar mass is present. This may represent adenopathy or a central mass. The area measures 8.3 x 6.9 cm. Pulmonary parenchyma: There is consolidation of the left lower lobe. This may be postobstructive. A central pulmonary mass cannot be excluded. There is extensive pulmonary fibrosis. Bronchiectatic changes are seen in the right upper lobe. No focal consolidating infiltrates are seen in the right lung. Pleura: There is a small to moderate size left pleural effusion. No right pleural effusion is present. Heart: The heart is not dilated. No pericardial effusion is present. Moderate coronary artery calcification is present. Aorta: 4.7 cm ascending thoracic aortic aneurysm. Upper abdomen: Unremarkable. Lymph nodes: Please see above. Bones:Degenerative changes. Old L1 compression fracture deformity. Cervicothoracic junction plate and screws appear Tubes, Catheters, and Lines: None IMPRESSION: 1. Extensive pulmonary fibrosis. 2. Marked thoracic adenopathy. Findings raise the question of metastatic disease or neoplasm such as lymphoma or leukemia. 3. Narrowing of the left mainstem bronchus with central soft tissue suspicious for thoracic adenopathy or central neoplasm. 4. Large consolidation involving the left lower lobe. Postobstructive a telectasis or pneumonia should be considered. A central obstructing mass should be considered in this patient. 5. Small to moderate size left pleural effusion Consults Consult date: 11/06/19 Requesting physician: John Ross Review of Systems All systems reviewed & are unremarkable except as noted in HPI and below [facility] Medical History (Updated 11/06/19 @ 17:35 by Neisha Marques, DO) Closed left femoral fracture (Acute 10/10/19) S/P short trochanteric femoral nail Dr. Lizarraga Congestive heart failure (CHF) (Chronic) [facility] 2011 ECHO [facility] shows EF 60%, mild diastolic dysfunction, ? more recent [facility] Essential hypertension (Chronic) Gait disturbance (Acute 04/03/16) post cervical spine surgery; yearly F/U with Eben oLja M.D., LAKEISHA Burton, Physical Medicine, @[facility]. 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/11) chronic hoarseness Surgical History (Updated 11/05/19 @ 22:16 by Cameron Valverde) Colonoscopy - [facility] (04/29/15) Dr.Annick Olivier EGD - [facility] (11/23/16) S/P cervical spinal fusion (Acute) Patient reports 3 separate cervical spinal surgeries beginning in 1983 and the last one occurring in 2008 Family History Mother Heart disease Social History Smoking/Tobacco Use Status: Former Tobacco Use Alcohol Intake: never Drug use: Never Substance use type: does not use Household members: none Communication Needs: Corrective Lenses current occupation: [employer] in [place] [employer] Current gender identity: male What type of physical activity do you participate in: walking and additional Details: pt is very active, walks paths on property daily, 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 Seatbelt use: always Drive intox or ride w/intox stage driver: No Do you feel safe at home: Yes Do you feel safe in your relationship?: Yes Exam Const General: cooperative, healthy appearing, comfortable, no acute distress, well developed and well groomed Nutritional Appearance: average body habitus and well nourished Orientation: alert, awake and oriented x3 HENMT Head: normal to inspection, normocephalic and atraumatic Ears: hearing grossly normal bilaterally and external ears normal General nose exam: external nose normal Face and sinus: normal facial exam and sinuses nontender Mouth: oral mucosae normal, lip normal, tongue normal and moist mucous membranes Teeth and gingiva: dentition normal Eyes General: appearance normal, both eyes and all related structures Conjunctivae: conjunctivae normal Sclera: sclerae normal Pupils: PERRL Neck Neck: normal visual inspection and full ROM Chest Chest: normal inspection of the chest Resp Effort & Inspection: normal respiratory effort, able to speak in complete sen tences, no cough, no nasal flaring, not tachypneic and no use of accessory muscles Auscultation: clear to auscultation bilaterally, no rales, no rhonchi and no wheezes Other: pt does have BS throughout all dawkins, b/l. However, they are very diminished on left base, but still present. Cardio Jugular venous pressure: no JVD Rate: regular rate Rhythm: regular rhythm GI Inspection: normal to inspection, no edema and non-distended Palpation: soft, no masses, nontender and No ascites Auscultation: normal bowel sounds Neuro General: alert, oriented x3, oriented, gait normal, moves all extremities, no focal motor deficits and CN's II-XI intact bilaterally Cognition: normal cognition Speech: speech normal Gait: normal gait Motor: muscle tone normal throughout Psych Appearance: grossly normal and well kempt Mental Status: mental status grossly normal Speech and Movement: speech and movement normal Affect: normal affect Results Last Vital Signs Temp 36.4 C L 11/06/19 07:45 Pulse 81 11/06/19 15:05 Resp 24 11/06/19 12:00 BP 96/58 L 11/06/19 07:45 Pulse Ox 98 11/06/19 16:50 Labs Result diagrams: 11/06/19 06:25 11/06/19 06:25 Labs: Laboratory Results - last 24 hr 11/05/19 11/05/19 11/05/19 15:11 15:11 17:38 WBC RBC Hgb Hct MCV MCH MCHC RDW Plt Count MPV Immature Gran % Neutrophils % Lymphocytes % Monocytes % Eosinophils % Basophils % Absolute Neutrophils Absolute Lymphocytes Absolute Monocytes Absolute Eosinophils Absolute Basophils ESR 95 H Sodium Potassium Chloride Carbon Dioxide Anion Gap BUN Creatinine Estimated GFR/1.73 m2 Glucose Lactate 1.7 H Calcium Magnesium Lactate Dehydrogenase C-Reactive Protein 4.52 H Procalcitonin 0.1 TSH 11/05/19 11/06/19 11/06/19 21:53 06:25 06:25 WBC 4.16 L D RBC 3.31 L Hgb 10.0 L Hct 32.3 L MCV 97.6 H MCH 30.2 MCHC 31.0 L RDW 15.4 H Plt Count 338 MPV 9.0 Immature Gran % 0.2 Neutrophils % 97.1 Lymphocytes % 1.7 Monocytes % 1.0 Eosinophils % 0.0 Basophils % 0.0 Absolute Neutrophils 4.04 Absolute Lymphocytes 0.07 L Absolute Monocytes 0.04 L Absolute Eosinophils 0.00 Absolute Basophils 0.00 ESR Sodium 140 Potassium 5.3 H Chloride 105 Carbon Dioxide 26.8 Anion Gap 8.2 BUN 65 H Creatinine 1.68 H Estimated GFR/1.73 m2 40.25 Glucose 160 H Lactate 1.8 H Calcium 7.8 L Magnesium 2.2 Lactate Dehydrogenase 1475 H C-Reactive Protein Procalcitonin TSH 0.52 11/06/19 06:25 WBC RBC Hgb Hct MCV MCH MCHC RDW Plt Count MPV Immature Gran % Neutrophils % Lymphocytes % Monocytes % Eosinophils % Basophils % Absolute Neutrophils Absolute Lymphocytes Absolute Monocytes Absolute Eosinophils Absolute Basophils ESR Sodium Potassium Chloride Carbon Dioxide Anion Gap BUN Creatinine Estimated GFR/1.73 m2 Glucose Lactate 1.9 H Calcium Magnesium Lactate Dehydrogenase C-Reactive Protein Procalcitonin TSH
[2019-11-06 19:34] LABS: Adenovirus DNA Result Negative (Negative); Metapneumovirus RNA Result Negative (Negative); Parainfluenza Type1 RNA Result Negative (Negative); Parainfluenza Type2 RNA Result Negative (Negative); Parainfluenza Type3 RNA Result Negative (Negative); Parainfluenza Type4 RNA Result Negative (Negative); Rhinovirus RNA Result Negative (Negative)
[2019-11-06] MEDS: Enoxaparin 30 MG/0.3 ML SYR SC (20:33)
[2019-11-07] VITALS (66 sets, daily range): BP systolic 102–156; BP diastolic 60–90; PULSE 80–100; RESP 4–31; TEMP 33–37.2; O2SAT 91–99
[2019-11-07] MEDS: HYDROmorphone 2 MG/ML VIAL IVP (00:16)
[2019-11-07] MEDS: Penicillin G POT. 3,000,000 UNITS in Normal Saline 50 ML 100 UNITS IVPB ×3 (04:25→12:08)
[2019-11-07] MEDS: Levothyroxine 112 MCG TAB PO (05:07)
[2019-11-07] MEDS: methylPREDNISolone SUCC 125 MG VIAL 80 MG IVP ×2 (05:08→14:29)
[2019-11-07] MEDS: Lactated Ringers 1,000 ML 125 ML IV (05:08)
[2019-11-07] MEDS: Albuterol/Ipratropium 3 ML UPD VIAL UPD ×2 (05:08→11:55)
[2019-11-07] MEDS: CLINDAMYCIN 900 MG/50 ML BAG 50 MG IVPB ×3 (05:08→17:36)
[2019-11-07 06:48] LABS: HCT 31.9 % (40.0-50.0); HGB 9.9 g/dL (13.5-17.5); Mean Corpuscular Hemoglobin 30.2 pg (27.0-33.0); Mean Corpuscular Volume 97.3 fL (80-95); Platelet Count 339 x1000/uL (130-400); RBC 3.28 m/cumm (4.50-6.00); RBC Distribution Width 15.4 % (11.8-14.1); White Blood Cell Count 8.58 k/cumm (4.4-10.8)
[2019-11-07 06:58] LABS: Anion Gap 8.8 mmol/L (3-11); BUN 47 mg/dL (7-18); CO2 26.2 mmol/L (21.0-32.0); CREATININE 1.17 mg/dL (0.70-1.30); Calcium 8.3 mg/dL (8.5-10.1); Chloride 106 mmol/L (98-107); Glucose 165 mg/dL (74-106); Potassium 4.7 mmol/L (3.5-5.1); Sodium 141 mmol/L (136-145)
[2019-11-07 07:16] LABS: Ferritin 123 ng/mL (26-388)
[2019-11-07 07:20] LABS: Iron 22 ug/dL (65-175)
[2019-11-07 07:25] LABS: C-Reactive Protein 1.31 mg/dL (0.0-0.3)
--- NOTE | 2019-11-07 07:45 | DI.RAD_ITS ---
EXAM: XR PORTABLE CHEST AP CLINICAL HISTORY: pneumonia vs mucous plugging, mass, ? bronch mass TECHNIQUE: 2D digital imaging was performed. COMPARISON: XR CHEST 2V PA LATERAL from 11/05/2019 FINDINGS: MEDIASTINUM: Enlarged but stable. Patient has known extensive mediastinal adenopathy. HEART: Stable but partially obscured. PULMONARY VASCULATURE: Pulmonary venous congestion. LUNGS: Persistent bilateral pulmonary infiltrates. They appear to have progressed, particularly in t he right lung. PLEURAL SPACE: Interval increase in the left pleural effusion. BONE:Postsurgical changes seen in the cervical spine. OTHER FINDINGS:Normal. IMPRESSION: Interval worsening of the appearance of the chest x-ray. Interval increase in the left pleural effus ion. Worsening pulmonary infiltrates. DATA REPOSITORY: RADIATION DOSE DELIVERED:
[2019-11-07] MEDS: Albuterol 2.5 MG/3 ML INH SOLN VIAL UPD ×2 (07:51→14:48)
[2019-11-07] MEDS: Benzonatate 200 MG CAP PO ×2 (07:55→14:28)
[2019-11-07] MEDS: Multivitamin TAB 1 TAB PO (07:55)
[2019-11-07] MEDS: Omeprazole 20 MG CAPCR 40 MG PO (07:55)
[2019-11-07 08:50] LABS: ESR 62 mm/hr (1-20)
--- NOTE | 2019-11-07 09:05 | W.PM.PROGNOT ---
Date of Service Date of service: 11/07/19 Time of Service: 09:06 Assessment and Plan Assessment and plan (1) Postobstructive pneumonia: Status: Acute Assessment and plan: Chest x-ray shows near total whiteout of his left lung particularly the left lower lobe. I have pushed his films at [facility] and placed a call to the transfer center requesting an acute transfer to pulmonary service. Patient remains on IV corticosteroids, nebulized bronchodilators, IV Levaquin. If [facility] is unable to accommodate him in an expeditious fashion that I will call [facility] to discuss transfer there. I did speak with Dr. Rebekah Olivier, general surgeon here at [facility]. While she has done bronchoscopies in the past she feels that patient be better served being treated tertiary care center as she feels that our equipment is not adequate for obtain biopsies. (2) Mucus plugging of bronchi: Status: Acute Assessment and plan: Patient will need both therapeutic and diagnostic fiberoptic bronchoscopy. Referral is been placed to [facility]. If I do not get an expedited response from them I will make phone calls to [facility]. (3) Cellulitis of left lower leg: Status: Acute Assessment and plan: Continues to receive high-dose penicillin G and clindamycin with improvement of his left leg. Pain has lessened and the swelling has improved (4) Acute kidney injury (nontraumatic): Status: Resolved Assessment and plan: Resolved with IV fluid hydration and withholding of his Lasix. 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 However in light of his postobstructive pneumonia with evidence of left mainstem bronchial narrowing as well as paratracheal and hilar adenopathy the evidence tends to favor an underlying pulmonary malignancy. Patient will be referred to tertiary care center for fiberoptic bronchoscopy to treat the mucous plugging as well as obtaining bronchial biopsies and/or transbronchial lymph node sampling (6) DVT prophylaxis: Status: Acute Assessment and plan: Currently on enoxaparin for DVT prophylaxis. Subjective Subjective Interval history since last seen: He probably has superimposed mucous pluggingPatient is more short of breath this morning. He is tachypneic. He has been unable to mobilize any significant sputum despite IV corticosteroids and nebulized bronchodilators. Repeat chest x-ray is performed this morning and demonstrated near total whiteout of his left lung. Based on CT findings over the weekend he probably has a postobstructive pneumonia caused by an endobronchial lesion most likely a lung cancer.. I discussed his case with Dr. Rebekah Olivier, general surgeon, who feels that the patient be better served by transfer to a tertiary care center where they cannot only do a therapeutic bronchoscopy but also a definitive diagnostic bronchoscopy with biopsies. She feels that we do not have adequate equipment to serve the patient here at [facility]. With regard to his renal function his BUN and creatinine have improved. IV fluids have been decreased. With respect to his cellulitis of his left leg that is improved. Pain his markedly improved. He has no leukocytosis. His ESR and CRP are declining somewhat. He remains on broad-spectrum antibiotics including Levaquin for his pneumonia and high-dose penicillin G and clindamycin for his cellulitis of his left leg. Exam Narrative Exam Narrative: Elderly male who is alert and oriented person place time circumstance. Voice is hoarse. Patient has stridor. Lungs reveal scattered expiratory wheezes on the right and on the left side he has markedly diminished breath sounds over the entire left lower and left upper lung field with some faint end expiratory wheezing. Heart is regular rate and rhythm without murmur rub or gallop. Abdomen soft and nontender. Left leg is nontender to palpation. Edema has diminished markedly. Erythema is improving. Objective Objective Clinical Data: Abnormal lab results 11/06/19 11/07/19 11/07/19 Range/Units 06:25 06:25 06:25 RBC (4.50-6.00) m/cumm Hgb (13.5-17.5) g/dL Hct (40.0-50.0) % MCV (80-95) fL MCHC (32.0-36.0) g/dL RDW (11.8-14.1) % ESR (1-20) mm/hr BUN (7-18) mg/dL Glucose (74-106) mg/dL Calcium (8.5-10.1) mg/dL Iron 22 L (65-175) ug/dL Lactate Dehydrogenase 1475 H (85-227) U/L C-Reactive Protein 1.31 H (0.0-0.3) mg/dL 11/07/19 11/07/19 Range/Units 06:25 06:25 RBC 3.28 L (4.50-6.00) m/cumm Hgb 9.9 L (13.5-17.5) g/dL Hct 31.9 L (40.0-50.0) % MCV 97.3 H (80-95) fL MCHC 31.0 L (32.0-36.0) g/dL RDW 15.4 H (11.8-14.1) % ESR 62 H (1-20) mm/hr BUN 47 H D (7-18) mg/dL Glucose 165 H (74-106) mg/dL Calcium 8.3 L (8.5-10.1) mg/dL Iron (65-175) ug/dL Lactate Dehydrogenase (85-227) U/L C-Reactive Protein (0.0-0.3) mg/dL Vital Signs Temperature 36.8 C 11/07/19 07:22 Temperature Source Tympanic 11/07/19 07:22 Pulse 90 11/07/19 07:22 Pulse Rhythm Regular 11/07/19 03:45 Pulse 80 11/05/19 18:40 Respiratory Rate 22 11/07/19 07:22 Respiratory Effort Labored 11/07/19 03:45 Respiratory Depth Normal 11/07/19 03:45 Respiratory Pattern Tachypnea 11/07/19 03:45 Blood Pressure 131/66 11/07/19 07:22 Blood Pressure Mean 67 11/05/19 18:32 Blood Pressure Position Supine 11/05/19 14:34 Pulse Oximetry 97 11/07/19 07:51 Oxygen Delivery Method Nasal Cannula 11/07/19 07:22 Oxygen Flow Rate 50 11/07/19 08:38 Fraction of Inspired Oxygen (FIO2) 34 11/07/19 08:38 Pain Level 7 11/07/19 07:22 Comment 11/05/19 14:34 Intake & Output 11/06/19 11/06/19 11/07/19 11:59 23:59 11:59 Intake Total 2150 / 3490 1340 / 3490 1300 / 1300 Output Total 250 / 1550 1300 / 1550 1400 / 1400 Balance 1900 / 1940 40 1939 -100 / -100 Intake: IV 2150 / 3400 1250 / 3400 1300 / 1300 Oral 90 / 90 Output: Urine 250 / 1550 1300 / 1550 1400 / 1400 Other: Urine Color [place] Yellow Urine Appearance Clear Clear Clear Urine Odor Normal Stool Occult Blood Negative Stool Size Small Large Stool Characteristics Soft Formed Liquid Brown Voiding Methods Indwelling Catheter Laboratory Results WBC 8.58 k/cumm (4.4-10.8) D 11/07/19 06:25 RBC 3.28 m/cumm (4.50-6.00) L 11/07/19 06:25 Hgb 9.9 g/dL (13.5-17.5) L 11/07/19 06:25 Hct 31.9 % (40.0-50.0) L 11/07/19 06:25 MCV 97.3 fL (80-95) H 11/07/19 06:25 MCH 30.2 pg (27.0-33.0) 11/07/19 06:25 MCHC 31.0 g/dL (32.0-36.0) L 11/07/19 06:25 RDW 15.4 % (11.8-14.1) H 11/07/19 06:25 Plt Count 339 x1000/uL (130-400) 11/07/19 06:25 MPV 9.0 fL (8.0-11.0) 11/07/19 06:25 Immature Gran % 0.2 % 11/06/19 06:25 Neutrophils % 97.1 11/06/19 06:25 Lymphocytes % 1.7 11/06/19 06:25 Monocytes % 1.0 11/06/19 06:25 Eosinophils % 0.0 11/06/19 06:25 Basophils % 0.0 11/06/19 06:25 Absolute Neutrophils 4.04 k/cumm (1.2-6.7) 11/06/19 06:25 Absolute Lymphocytes 0.07 k/cumm (1.2-3.4) L 11/06/19 06:25 Absolute Monocytes 0.04 k/cumm (0.11-0.7) L 11/06/19 06:25 Absolute Eosinophils 0.00 k/cumm (0.0-0.7) 11/06/19 06:25 Absolute Basophils 0.00 k/cumm (0.0-0.2) 11/06/19 06:25 ESR 62 mm/hr (1-20) H 11/07/19 06:25 Sodium 141 mmol/L (136-145) 11/07/19 06:25 Potassium 4.7 mmol/L (3.5-5.1) 11/07/19 06:25 Chloride 106 mmol/L (98-107) 11/07/19 06:25 Carbon Dioxide 26.2 mmol/L (21.0-32.0) 11/07/19 06:25 Anion Gap 8.8 mmol/L (3-11) 11/07/19 06:25 BUN 47 mg/dL (7-18) H D 11/07/19 06:25 Creatinine 1.17 mg/dL (0.70-1.30) D 11/07/19 06:25 Estimated GFR/1.73 m2 >= 60.00 (mL/min/1.73m2) 11/07/19 06:25 Glucose 165 mg/dL (74-106) H 11/07/19 06:25 Lactate 1.9 mmol/L (0.6-1.4) H 11/06/19 06:25 Calcium 8.3 mg/dL (8.5-10.1) L 11/07/19 06:25 Magnesium 2.2 mg/dL (1.8-2.4) 11/06/19 06:25 Iron 22 ug/dL (65-175) L 11/07/19 06:25 Ferritin 123 ng/mL (26-388) 11/07/19 06:25 Total Bilirubin 0.5 mg/dL (0.2-1.0) 11/05/19 15:11 AST 113 U/L (15-37) H 11/05/19 15:11 ALT 46 U/L (16-63) 11/05/19 15:11 Alkaline Phosphatase 136 U/L (46-116) H 11/05/19 15:11 Lactate Dehydrogenase 1475 U/L (85-227) H 11/06/19 06:25 Troponin I < 0.05 ng/Ml (<0.06) 11/05/19 15:11 C-Reactive Protein 1.31 mg/dL (0.0-0.3) H 11/07/19 06:25 NT-Pro-B Natriuret Pep 544 pg/mL (<300) H 11/05/19 15:11 Total Protein 7.5 g/dL (6.4-8.2) 11/05/19 15:11 Albumin 2.9 g/dL (3.4-5.0) L 11/05/19 15:11 Procalcitonin 0.1 ng/mL 11/05/19 17:38 TSH 0.52 uIU/mL (0.36-3.74) 11/06/19 06:25 Urine Color [place] (Yellow) 11/05/19 15:30 Urine Clarity Clear (Clear) 11/05/19 15:30 Urine pH 5.0 (5-8) 11/05/19 15:30 Ur Specific [place] 1.020 (1.005-1.025) 11/05/19 15:30 Urine Protein Negative mg/dL (Negative) 11/05/19 15:30 Urine Ketones Trace mg/dL (Negative) H 11/05/19 15:30 Urine Blood Negative (Negative) 11/05/19 15:30 Urine Nitrite (Negative) 11/05/19 15:30 Urine Bilirubin Negative (Negative) 11/05/19 15:30 Urine Urobilinogen 1.0 EU/dL (Up TO 0.2) H 11/05/19 15:30 Ur Leukocyte Esterase Negative (Negative) 11/05/19 15:30 Urine Glucose Negative mg/dL (Negative) 11/05/19 15:30
--- NOTE | 2019-11-07 13:48 | PDOC.CMPRO ---
- If Service Date Differs Date of service: 11/07/19 Time of Service: 13:49 Care Management Progress Note S/O:Jake is having more difficulty breathing today and has been placed on [place] oxygen. He has been receiving IV antibiotics and steroids and appears to have mucous plugging of the bronchi. Abram Hanks has [place] [facility] [place] for bronchoscopy and biopsy. Hernandez states he has contacted his family and neighbors and everyone is aware of the plan. A: Jake is a 74 byeasr old gentleman admitted to [facility] on 11/05/19 with pneumonia and cellulitis. P:Hernandez will likely be discharged home with a resumption of home health nursing and PT, however he may need to be transferred [place] [facility] [place] and [place]. He will follow up with his providers and discharge plan of care. CM will continue to support patient, family and discharge planning needs.
--- NOTE | 2019-11-07 14:58 | W.NUTCONSULT ---
Date of service: 11/07/19 Time of Service: 14:58 Nutritional Consult ASSESSMENT: 74 year old male with post op PNA, pleural effusion, mucus plug of bronchi, pulmonary fibrosis, KIMMIE, CHF, HTN, GERD,wiith cellulitis of lower left leg. Labs indicate elevated glucose, BUN, Creatinine. Meds include prednison, prilosec, MVI, lasix and multiple antibiotics. Following Heart Healthy Diet with very poor intake due to difficulty breathing. Weight appears to be at usual weight and wnl. IV hydration in place, kidney function improving. Nursing reports to be transfered to [facility] today. Estimated Needs: 9014-0234 kcal (25-30 kcal/kg), 71-85 g protein (1.0-1.2 g pro/kg), 2100 ml fluid (30 ml/kg). Current intake meeting <25% of estimated needs. Jake is at risk for nutritional decline in view of poor intake, difficulty to self feed and increased nutrient needs. Will provide Jake with high calorie liquids at meals, ensure between meals. NUTRITIONAL DIAGNOSIS: inadequate protein energy intake due to self feeding difficulty with difficulty breathing increased nutrient needs due to difficulty breathing, increased nutrient needs due to wound healing INTERVENTION: Provide high calorie fluids at all meals Ensure BID MONITORING AND EVALUATION: daily labs, weight, po intake Time Spent in Nutritional Counseling and Treatment: 5 min spent face to face
--- NOTE | 2019-11-07 15:03 | NUR.NOTE ---
at 14:35 pt voiced to nurse that he is feeling worse and chest is extremely tight. crackles, rhonchi heard throughout. SOB at rest. vs:t 37.1, HR :94, rr 26, SPO2 94% on high flow BP :156/89.Charge Nurse aware and she called . stated he will reevaluate pt shortly
[2019-11-07] MEDS: fentaNYL 100 MCG/2 ML VIAL (15:42)
--- NOTE | 2019-11-07 15:43 | NUR.NOTE ---
pt was transferred to the ICU and is being intubated. NURSING hand off will be done when pt is settled
[2019-11-07] MEDS: Rocuronium 50 MG/5 ML SYR 75 MG IVP (15:50)
[2019-11-07] MEDS: Etomidate 20 MG/10 ML VIAL 15 MG IVP (15:50)
[2019-11-07] MEDS: PROPOFOL 1,000 MG/100 ML BTL 32.4 MG (16:00)
--- NOTE | 2019-11-07 16:00 | DI.RAD_ITS ---
EXAM: XR PORTABLE CHEST AP POST LINE CLINICAL HISTORY: Postintubation. TECHNIQUE: 2D digital imaging was performed. COMPARISON: XR CHEST 2V PA LATERAL from 11/05/2019 XR PORTABLE CHEST AP from 11/07/2019 FINDINGS: A nasogastric tube and endotracheal tube have been inserted. The tip of the endotracheal tube lies a t the level of the aortic arch. Leads overlie the chest. There has been no change in the near-compl ete whiteout of the left hemithorax. There are stable increased interstitial changes in the right edward ng. IMPRESSION: Satisfactory placement of nasogastric and endotracheal tubes. DATA REPOSITORY: RADIATION DOSE DELIVERED:
[2019-11-07 16:33] LABS: BE -0.5 mmol/L (-3-3); HCO3 26 mmol/L (22-28); pCO2 55 mmHg (34-47); pH 7.28 (7.35-7.45); pO2 295 mmHg (83-108)
[2019-11-07 16:36] LABS: Site Left Radial; sO2 > 99 % (94-98)
[2019-11-07 16:37] LABS: FIO2 100 %
--- NOTE | 2019-11-07 16:48 | DSE_ITS ---
DS: Diagnosis Discharge Diagnosis (1) Postobstructive pneumonia: Status: Acute Asessment and Plan: Patient is intubated and mechanically ventilated and sedated. Patient will be transferred [facility] to the medical ICU team of Dr. Gilmore. Consultation will be requested with Dr. Ricardo Connolly director of religious activities. Patient will require an exchange of his endotracheal tube in order to perform bronchoscopy. Bronchoscopy will be performed by the pulmonary team to remove mucous plugging as well as to obtain a definitive diagnosis of his left mainstem bronchial stenosis and mediastinal and paratracheal lymphadenopathy. Further consultations will be obtained from the oncology and radiation oncology team once a formal diagnosis is made. (2) Mucus plugging of bronchi: Status: Acute Asessment and Plan: As above (3) Cellulitis of left lower leg: Status: Acute Asessment and Plan: Marketed clinical improvement in his cellulitis in his left leg. Continued parenteral antibiotics for coverage of strep and staph. 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 Discharge Plan Disposition Condition: Critical Discharge Details Chief Complaint: SOB Clinical Impression: Hypoxia, Acute exacerbation of CHF (congestive heart failure), History of pulmonary fibrosis Reason For Visit: acute respiratory failure d/t post obstructive pn Admit Date/Time: 11/05/19 18:04 Admit Provider: Cameron Valverde Attending Provider: Cameron Valverde Primary Care Provider: Simone Flanagan ED Provider: Neda Iraheta Hospital Course Hospital Course: 74-year-old male with a history of rheumatoid arthritis with rheumatoid pulmonary fibrosis who had a left hip IM nailing about a month ago af ter fall and left hip fracture. Patient states over the past month he is getting progressively more short of breath with a nonproductive cough not associated with a fever. Furthermore he had exquisite left leg pain with worsening edema in his left leg since his surgery. 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 He was subsequently put on Lasix 40 mg daily. Upon presentation to the emergency department he was found to be in acute kidney injury with a BUN of 70 and creatinine of 1.8 and elevated blood lactate of 1.7. CBC did not show leukocytosis. He had a stable chronic anemia with a hemoglobin 11.4 g. Blood cultures were obtained and a stat CT of his left leg was obtained to rule out fasciitis. CT was consistent with a diffuse cellulitis of his distal left leg but no fasciitis was seen. Patient was started on high- dose penicillin G along with clindamycin for the cellulitis. Chest 2 Views was suspicious for left lower lobe pneumonia and a moderate sized left pleural effusion. [id number] ultrasound confirmed this. Pleural effusion appear to be a simple effusion. Patient was treated with IV fluids for his acute kidney injury which resolved with his BUN declining to 47 and his creatinine dropped to 1.17 on the day of discharge. High resolution CT scan was performed on November 06, 2019 and demonstrated narrowing of the left mainstem bronchus leading into the left lingula and left lower lobe. Furthermore he was found to have paratracheal hilar and supraclavicular lymphadenopathy. These findings were suspicious for malignancy. Patient's pneumonia was treated with Levaquin in addition to the vancomycin as well as the antibiotics given for his cellulitis which include c lindamycin and high-dose pen G. Patient was given IV corticosteroids and aerosolized bronchodilators. He was placed on high flow nasal cannula. In spite of this he developed progressive respiratory failure and decline to the point that he needed emergent intubation on the day of discharge. I was in contact with [facility] to see about transfer however no beds were available while he was stable early on the morning of November 07, 2019. I did contact Dr. Ricardo Connolly, director of religious activities who try to facilitate transfer however because of her no beds available in their stepdown unit or medical/surgical floors the best he could arrange was an outpatient bronchoscopy for a transfer down and back to our facility on morning. During the interim the patient became progressively more short of breath and was unable to handle his secretions and developed acute respiratory extremis requiring emergent intubation and transfer to ICU. At that point I contacted [facility] for transfer and they put me in touch with the medical ICU team who accepted the patient in transfer to the service of Dr. Gilmore. Patient is in critical condition but hemodynamically stable. Intubation was achieved with a glide scope using a #7 ET tube which was performed without adverse incidents. I personally performed intubation with the supervision of our nurse bench inspector. ET tube is at 24 cm at the lips. Post intubation chest x-ray is pending at this time. Post intubation plateau pressures are 27. Ventilator settings are initially set to tidal volume of 450 mL FiO2 100% with 10 cm of PEEP, assist control 16. Home Meds and New Rx's Prescriptions: No Action prednisone 10 mg tablet 10 mg PO DAILY Qty: 5 RF: 0 furosemide 40 mg tablet 40 mg PO DAILY Qty: 14 RF: 0 multivitamin [Daily Vitamin] 1 EACH tablet 1 ea PO DAILY RF: 0 ascorbic acid (vitamin C) 500 MG tablet 500 mg PO DAILY RF: 0 hydroxychloroquine 200 MG tablet 200 mg PO BID RF: 0 lisinopril 40 MG tablet 40 mg PO DAILY RF: 0 nifedipine 30 MG tablet extended release 24hr 30 mg PO DAILY Qty: 30 RF: 2 sildenafil (pulm.hypertension) 20 MG tablet 40 mg PO PRN Qty: 30 RF: 3 diclofenac sodium [Voltaren] 100 GM gel 100 gm Topical DAILY RF: 0 omeprazole 40 MG capsule,delayed release(DR/EC) 40 mg PO DAILY Qty: 1 RF: 0 levothyroxine 112 mcg tablet 112 mcg PO DAILY Qty: 90 RF: 3 baclofen 10 mg tablet 5 mg PO QID PRN (Reason: muscle spasm) Qty: 180 RF: 1 Methotrexate (Anti-Rheumatic) 2.5 mg tablets,dose pack 15 mg PO once a week RF: 0 Actemra 162 mg/0.9 mL syringe 162 mg subcut QWEEK RF: 0 pramipexole 0.5 mg tablet 0.5 mg PO HS Qty: 90 RF: 3 albuterol sulfate 90 mcg/actuation HFA aerosol inhaler 2 puff IH Q6H PRN (Reason: shortness of breath or wheezing) Qty: 18 RF: 3 acetaminophen [Mapap Extra Strength] 500 mg Tablet 1,000 mg PO Q8H PRNQty: 0 RF: 0 aspirin 81 mg Tablet,Chewable 81 mg PO DAILY Qty: 29 RF: 0 Discharge Instructions Instructions: Cellulitis (DC), Flexible Bronchoscopy (GEN), Pneumonia (DC), Endotracheal Tube (GEN) Activity:: Bedrest Equipment/Supplies:: No Equipment Needed Diet:: NPO Discharge Data Discharge Physician: Cameron Valverde DS: Summary Status at Discharge Functional status at discharge: bed bound Overall status at discharge: patient is not back to baseline Mental Status: other (Sedated and intubated) Speech and Movement: other Mood: other (Sedated and intubated) Affect: other Exam Narrative Exam Narrative: Intubated and sedated. Patient developed epistaxis from his right nares secondary to traumatic attempted placement of NG. OG tube is been placed. Neck is supple nontender no overt JVD. Lungs reveal markedly diminished breath sounds at the left lung base. Right side had coarse wheezes this morning but sound clear since intubation. Both bases have fine Velcro-like rales. Heart is regular rate and rhythm without audible murmur rub or gallop. Abdomen is soft nondistended with active bowel sounds. Neurologically he was intact prior to intubation. he is intubated and deeply sedated. Not responding to noxious stimulation. Psych Mental Status: other (Sedated and intubated) Speech and Movement: other Mood: other (Sedated and intubated) Affect: other DS: Data Vitals/I&O Vitals and I&O: Vital Signs Temperature 37.1 C 11/07/19 15:00 Temperature Source Tympanic 11/07/19 14:41 Pulse 94 H 11/07/19 15:00 Pulse Rhythm Regular 11/07/19 14:35 Pulse 80 11/05/19 18:40 Respiratory Rate 26 H 11/07/19 15:00 Respiratory Effort Labored 11/07/19 15:00 Respiratory Depth Deep 11/07/19 14:35 Respiratory Pattern Tachypnea 11/07/19 14:35 Blood Pressure 156/89 H 11/07/19 15:00 Blood Pressure Mean 67 11/05/19 18:32 Blood Pressure Position Supine 11/05/19 14:34 Pulse Oximetry 94 L 11/07/19 15:00 Oxygen Delivery Method Hi Flow System 11/07/19 15:00 Oxygen Flow Rate 55 11/07/19 15:00 Fraction of Inspired Oxygen (FIO2) 31 11/07/19 14:50 Pain Level 0 11/07/19 16:42 Comment 11/05/19 14:34 Intake & Output 11/06/19 11/07/19 11/07/19 23:59 11:59 23:59 Intake Total 1340 / 3490 1520 / 1770 250 / 1770 Output Total 1300 / 1550 1600 / 1900 300 / 1900 Balance 40 0 -80 / -130 -50 / -130 Intake: IV 1250 / 3400 1400 / 1650 250 / 1650 Oral 90 / 90 120 / 120 Output: Urine 1300 / 1550 1600 / 1900 300 / 1900 Other: Urine Color [place] Yellow Yellow Urine Appearance Clear Clear Clear Urine Odor Normal Stool Occult Blood Negative Stool Size Large Stool Characteristics Formed Voiding Methods Indwelling Catheter Data Completed and Pending Labs on day of discharge: Labs from last 24 hours 11/07/19 11/07/19 11/07/19 16:32 06:25 06:25 WBC 8.58 D RBC 3.28 L Hgb 9.9 L Hct 31.9 L MCV 97.3 H MCH 30.2 MCHC 31.0 L RDW 15.4 H Plt Count 339 MPV 9.0 ESR 62 H ABG Sample Site Left radial ABG pH 7.28 L ABG pCO2 55 H ABG pO2 295 H ABG HCO3 26 ABG Total CO2 Pending ABG O2 Saturation > 99 H ABG Base Excess -0.5 FiO2 100 Sodium 141 Potassium 4.7 Chloride 106 Carbon Dioxide 26.2 Anion Gap 8.8 BUN 47 H D Creatinine 1.17 D Estimated GFR/1.73 m2 >= 60.00 Glucose 165 H Calcium 8.3 L Iron Ferritin C-Reactive Protein Adenovirus DNA Human Metapneumovir RNA Parainfluenza 1 (PCR) Parainfluenza 2 (PCR) Parainfluenza 3 (PCR) Parainfluenza 4 (PCR) Resp Viral Spec Desc Rhinovirus (PCR) 11/07/19 11/07/19 11/06/19 06:25 06:25 09:30 WBC RBC Hgb Hct MCV MCH MCHC RDW Plt Count MPV ESR ABG Sample Site ABG pH ABG pCO2 ABG pO2 ABG HCO3 ABG Total CO2 ABG O2 Saturation ABG Base Excess FiO2 Sodium Potassium Chloride Carbon Dioxide Anion Gap BUN Creatinine Estimated GFR/1.73 m2 Glucose Calcium Iron 22 L Ferritin 123 C-Reactive Protein 1.31 H Adenovirus DNA Negative Human Metapneumovir RNA Negative Parainfluenza 1 (PCR) Negative Parainfluenza 2 (PCR) Negative Parainfluenza 3 (PCR) Negative Parainfluenza 4 (PCR) Negative Resp Viral Spec Desc Not Applicable Rhinovirus (PCR) Negative Preliminary micro results at discharge 11/05/19 21:53 Blood Culture - Preliminary Blood NO GROWTH 24 HOURS 11/05/19 21:45 Blood Culture - Preliminary Blood NO GROWTH 24 HOURS 11/05/19 17:49 Blood Culture - Preliminary Blood NO GROWTH 24 HOURS 11/05/19 17:38 Blood Culture - Preliminary Blood NO GROWTH 24 HOURS [facility] Medical History (Updated 11/07/19 @ 16:49 by Cameron Valverde) Closed left femoral fracture (Acute 10/10/19) S/P short trochanteric femoral nail Dr. Lizarraga Congestive heart failure (CHF) (Chronic) per records received from [facility]; 2011 ECHO [facility] shows EF 60%, mild diastolic dysfunction, ? more recent [facility] Essential hypertension (Chronic) Gait disturbance (Acute 04/03/16) post cervical spine surgery; yearly F/U with Eben Loja M.D., LAKEISHA Burton, Physical Medicine, @[facility]. 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/11) chronic hoarseness Surgical History (Updated 11/05/19 @ 22:16 by Cameron Valverde) Colonoscopy - [facility] (04/29/15) Dr.Annick Olivier EGD - [facility] (11/23/16) S/P cervical spinal fusion (Acute) Patient reports 3 separate cervical spinal surgeries beginning in 1983 and the last one occurring in 2008 Family History Mother Heart disease Social History Smoking/Tobacco Use Status: Former Tobacco Use Alcohol Intake: never Drug use: Never Substance use type: does not use Household members: none Communication Needs: Corrective Lenses 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
--- NOTE | 2019-11-07 17:08 | DI.VRAD_ITS ---
PROCEDURE INFORMATION: Exam: XR Chest, 1 View Exam date and time: 11/07/2019 4:27 PM Age: 74 years old Clinical indication: Device placement TECHNIQUE: Imaging protocol: XR of the chest Views: 1 view. COMPARISON: CR XR PORTABLE CHEST AP 11/07/2019 8:[address] scan of the chest, 11/06/2019. FINDINGS: Limitations: Portions of the pulmonary parenchyma are obscured secondary to overlying medical equipment. Tubes, catheters and devices: ET tube tip is above luz. NG tube tip overlies stomach. There is a left-sided external pacing device. Postsurgical changes are noted in the spine. Lungs: Again noted is near complete opacification of the left hemithorax. This is favored to be related to a large effusion with associated atelectasis versus pneumonia. Only a small portion of aerated lung is seen in the left upper lobe, decreased from prior exam. Heterogeneous opacities remain noted in the right lung which could represent areas pulmonary fibrosis. Superimposed edema/infection is not excluded. An opacity in the periphery of the right mid lung appears increased. Pleural space: No pneumothorax. Heart/Mediastinum: The cardiomediastinal contours are difficult to secondary to overlying external pacing device. The patient has known mediastinal lymphadenopathy based on CT report. Vascular calcifications remain seen. Bones/joints: There is a widened appearance to the right AC joint which should be correlated with any history of injury. There are skeletal degenerative changes. IMPRESSION: 1. Lines and tubes as above. 2. Persistent near complete opacification of the left hemithorax. This is favored to be related to a large effusion with associated atelectasis versus pneumonia. Only a small portion of aerated lung is seen in the left upper lobe, decreased from prior exam. 3. Heterogeneous opacities remain noted in the right lung. These could represent areas of edema or infection. Opacification in the periphery of the right mid lung has increased. 4. The cardiomediastinal contours are difficult to secondary to overlying external pacing device. The patient has known mediastinal lymphadenopathy based on CT report. If there is concern for a new mediastinal/vascular abnormality or if the patient's symptoms remain concerning, CT scan could be considered. Other findings/details as above. Dictated and Authenticated by: Ashly Cooper MD. Ordering:[facility] Abram Barnes MD
[2019-11-07] MEDS: Pantoprazole 40 MG VIAL IVP (17:33)
[2019-11-07] MEDS: Normal Saline Flush 10 ML SYR IVP (17:35)
[2019-11-07] MEDS: PROPOFOL 1,000 MG/100 ML BTL 50 MG (17:38)
[2019-11-08 00:21] LABS: Beta-2-Microglobulin 4.77 mcg/mL
== END 2019-11-07 17:38 | disposition short-term general hospital (02) | DRG 208 ==
LOC: ER 17:44 → MS 22:34 → ICU 11-07 15:52
PROVIDERS: Internal Medicine; Surgery; Admitting Provider Internal Medicine; Emergency Provider Physician Assistant; PCP Family Medicine; Visit Provider Internal Medicine
DX: J18.9 Pneumonia, unspecified organism (principal); J96.00 Acute respiratory failure, unspecified whether with hypoxia or hypercapnia; L03.116 Cellulitis of left lower limb; N17.9 Acute kidney failure, unspecified; I50.32 Chronic diastolic (congestive) heart failure; T17.590A Other foreign object in bronchus causing asphyxiation, initial encounter; M05.10 Rheumatoid lung disease with rheumatoid arthritis of unspecified site; R09.02 Hypoxemia; J84.17 Other interstitial pulmonary diseases with fibrosis in diseases classified elsewhere; I11.0 Hypertensive heart disease with heart failure; R26.9 Unspecified abnormalities of gait and mobility; K21.9 Gastro-esophageal reflux disease without esophagitis; K44.9 Diaphragmatic hernia without obstruction or gangrene; J38.01 Paralysis of vocal cords and larynx, unilateral; Z98.1 Arthrodesis status; Z87.891 Personal history of nicotine dependence; R59.0 Localized enlarged lymph nodes; S72.002D Fracture of unspecified part of neck of left femur, subsequent encounter for closed fracture with routine healing; D64.9 Anemia, unspecified
CPT/HCPCS: 36410; 36415; 71045; 71250; 80048; 80053; 82805; 84145; 85027; 85652; 87040; 87449; 87632; 93005; 94640; 96374; 96375; 99223; 99233; 99239; 99253; 99285; 36600; 71046; 73700; 81003; 82232; 82728; 83540; 83605; 83615; 83735; 83880; 84443; 84484; 85025; 86140; 93010; 94002; J1650; J1940; J1956; J2540; J2930; J3010; J7613; J7620